=== PATIENT | female | born 1955 | race Caucasian/White ===

== ENCOUNTER 2024-06-21 19:59 | Emergency (ER) | payer OTHER, SELFPAY ==
--- NOTE | ~2024-06-21 | XR_ITS ---
EXAMINATION: XR FOREARM, LEFT CLINICAL INFORMATION: L arm pain COMPARISON: None available. TECHNIQUE: AP and lateral views of the left forearm were obtained. FINDINGS: Detail is obscured by the casting material. There is a spiral fracture involving the distal ulna low with some mild ventral angulation of the distal fracture fragment . No other definite fractures are seen. XR/XR forearm LT 2V IMPRESSION: Distal ulnar fracture as described above. Electronically signed by: Lucien Ledesma MD 06/22/2024 12:07 AM [facility]
[2024-06-21 20:12] VITALS: BP 129/65; BP 142/86; PULSE 74; PULSE 97; RESP 16; TEMP 36.3; O2SAT 95; O2SAT 98; BMI 33.6
--- NOTE | 2024-06-21 20:14 | ED_ITS ---
HPI - General Adult General Chief complaint: Extremity Injury, Upper Stated complaint: L ARM PAIN ALREADY IN CAST -EMS Time Seen by Provider: 06/21/24 22:46 Source: patient Limitations: no limitations and other (poor historian ) History of Present Illness ED Provider: Katey falk PA-C HPI narrative: 69-year-old female with a self-reported history of hypertension, hyperlipidemia, insulin-dependent diabetes, COPD on 3 L nasal cannula at baseline, chronic back pain on chronic opiate therapy, presents with left upper extremity pain times 10 days. Patient fell and fractured her left forearm. Her initial assessment was at [facility]. Patient has pending follow up with the orthopedic service as an outpatient. Patient states the pain medication she is taking is ineffective; patient states she takes ?6 pills of 10 mg oxycodone daily?. Patient also states she is having difficulty performing her activities of daily living, secondary to the splint and her discomfort. Related Data Allergies Allergy/AdvReac Type Severity Reaction Status Date / Time divalproex sodium [Depakote] Allergy Unknown rash/hives Verified 06/21/24 20:19 morphine Allergy Unknown rash Verified 06/21/24 20:19 vancomycin Allergy Unknown resp sx Verified 06/21/24 20:19 Review of Systems 2 Review of Systems: Yes all other systems are reviewed and are negative Constitutional: Constitutional: Denies fatigue and Denies fever(s) Cardiovascular: Cardiovascular: Denies chest pain and Denies dyspnea Respiratory: Respiratory: Denies dyspnea Musculoskeletal: Comments: Forearm pain Endocrine: Endocrine: Denies fatigue PMFSH Past Medical History Attestation statement: The following information was validated with the patient. Social History Social History Smoked in Last 30 Days: No Use of substances other than those prescribed or required for medical reasons: No Advance Directives: No Advance Directives Information Provided: No Do you have a plan to hurt others: No Plan Physical Exam ED Vital Signs: Vital Signs - 24 hr 06/21/24 20:12 06/22/24 01:46 06/22/24 06:16 Temperature 97.3 F 97.4 F 97.1 F Pulse Rate 74 57 55 Respiratory Rate 16 16 16 Blood Pressure 142/86 H 168/63 H 130/50 L Pulse Oximetry 95 99 99 Oxygen Delivery Method Nasal Cannula Room Air Nasal Cannula Oxygen Flow Rate 3 BMI result Body Mass Index 33.6 Const Other: Alert Orientation/consciousness: patient oriented x3 Resp Other: Nonlabored respiration Cardio Other: Normal peripheral perfusion Skin Other: Warm dry no rash Neuro General: patient oriented x3, no focal motor deficits and CN's II-XI intact bilaterally Extrem Other: The left upper extremity is warm and well-perfused, no distal swelling of the digits, sensation intact Psych Other: Cooperative, is a terrible historian Course Course Course Narrative: This is an RME done by MARY Allen: Additional HPI, ROS, PE not included below will be deferred to primary provider. 69-year-old female diagnosed last week with left forearm fracture presents with worsening pain inability to care for herself she reports she is coming from [facility] in [place] and is not able to care for herself due to pain. Pain is severe 9.5/10 and worsening is not able to sleep due to pain Reevaluation(s) Reevaluation #1: Vital signs stable. No acute overnight events per nursing notes. Patient has a fracture of her left forearm and is unable to care for herself at home and this PT/case management consultation was placed. Med reconciliation has not yet been completed. Work pharmacy to review medications. Physician observation continued pending PT/case management and disposition. Time: 06:58 Medical Decision Making Medical Decision Making MDM Narrative: 69-year-old female with a self-reported history of hypertension, hyperlipidemia, insulin-dependent diabetes, COPD on 3 L nasal cannula at baseline, chronic back pain on chronic opiate therapy, presents with left upper extremity pain times 10 days. Patient fell and fractured her left forearm. Her initial assessment was at [facility]. Patient has pending follow up with the orthopedic service as an outpatient. Patient states the pain medication she is taking is ineffective; patient states she takes ?6 pills of 10 mg oxycodone daily?. Patient also states she is having difficulty performing her activities of daily living, secondary to the splint and her discomfort. Problem: Age, diabetes, oxygen-dependent, recent injury History: Per patient which is limited as she is a poor historian I have considered the following differential diagnoses: DVT, compartment syndrome, medication seeking behavior, inability to perform activities of daily living Plan: Patient is requesting a higher level of care. She states she does not qualify to have services to her independent living facility; she states she lives with the [facility] at [address] screening labs and a repeat x-ray were obtained from triage. Thought about compartment syndrome, however the patient's pain is not out of proportion with exam, the extremity is warm and well perfused, she has sensation intact. Thought about DVT, however there was no swelling. We will hold her over for case management and physical therapy. I have independently reviewed the following tests: Labs: No leukocytosis, not anemic, no electrolyte abnormality, X-ray left forearm: XR/XR forearm LT 2V IMPRESSION: Distal ulnar fracture as described above. Lab Data 06/21/24 20:47 06/21/24 20:47 Labs: Lab Results 06/21/24 Range/Units 20:47 WBC 9.6 (4.8-10.8) X10*3/uL RBC 4.52 (4.20-5.50) X10*6/uL Hgb 13.4 (12.0-16.0) g/dl Hct 39.7 (37.0-47.0) % MCV 87.8 (80.0-98.0) fL MCH 29.6 (27.0-33.0) pg MCHC 33.8 (31.0-35.0) g/dl RDW 12.4 (11.0-16.0) % Plt Count 156 L (160-400) X10*3/uL MPV 10.6 (9.4-12.3) fL Immature Gran % (Auto) 0.5 H (0.0-0.4) % Neut % (Auto) 74.0 H (45-73) % Lymph % (Auto) 18.8 L (20-40) % Jerome % (Auto) 4.7 (2-11) % Eos % (Auto) 1.7 (0-4) % Baso % (Auto) 0.3 (0-2) % Lymph # (Auto) 1.8 (1.2-4.9) X10*3/uL Jerome # (Auto) 0.5 (0.1-1.2) X10*3/uL Eos # (Auto) 0.2 (0.0-0.4) X10*3/uL Baso # (Auto) 0.0 (0.0-0.2) X10*3/uL Abs Immat Gran (auto) 0.05 H (0.00-0.03) X10*3/uL Absolute Neuts (auto) 7.1 (2.0-8.3) x10*3/uL Absolute Nucleated RBC 0.000 (0.0-0.012) X10*3/uL Nucleated RBC % (auto) 0.0 (0.0-0.2) /100WBC PT 11.2 (10.9-12.4) SEC INR 1.0 (0.9-1.1) Sodium 138 (135-145) mmol/L Potassium 3.7 (3.3-5.1) mmol/L Chloride 102 (96-108) mmol/L Carbon Dioxide 31 H (22-29) mmol/L Anion Gap 9 L (12-20) BUN 8 L (9-16) mg/dL Creatinine 0.97 (0.5-1.4) mg/dL Estim Creat Clear Calc 49.1 Estimated GFR 57 Random Glucose 311 H (60-115) mg/dL Calcium 8.6 (8.4-10.2) mg/dL Magnesium 1.7 (1.6-2.6) mg/dL Total Bilirubin 0.3 (0.0-1.0) mg/dL AST 26 (5-31) U/L ALT 14 (0-31) U/L Alkaline Phosphatase 126 H (39-117) U/L Total Protein 6.6 (6.5-8.0) g/dL Albumin 3.5 (3.5-5.0) g/dL Discharge Plan Discharge Clinical Impression: Left ulnar fracture Patient Disposition: Still a Patient Print Language: Ukrainian
[2024-06-21 20:53] LABS: MANUAL DIFF FLAG NO
[2024-06-21 20:55] LABS: Basophils Percent Auto 0.3 % (0-2); Eosinophils Absolute Auto 0.2 X10*3/uL (0.0-0.4); Eosinophils Percent Auto 1.7 % (0-4); Hematocrit 39.7 % (37.0-47.0); Hemoglobin 13.4 g/dl (12.0-16.0); Imm Gran Abs Auto 0.05 X10*3/uL (0.00-0.03); Imm Gran Pct Auto 0.5 % (0.0-0.4); Lymphocytes Absolute Auto 1.8 X10*3/uL (1.2-4.9); Lymphocytes Percent Auto 18.8 % (20-40); Mean Corpuscular HGB Conc 33.8 g/dl (31.0-35.0); Mean Corpuscular Hemoglobin 29.6 pg (27.0-33.0); Mean Corpuscular Volume 87.8 fL (80.0-98.0); Mean Platelet Volume 10.6 fL (9.4-12.3); Monocytes Absolute Auto 0.5 X10*3/uL (0.1-1.2); Monocytes Percent Auto 4.7 % (2-11); Neutrophils Absolute Auto 7.1 x10*3/uL (2.0-8.3); Platelet Count 156 X10*3/uL (160-400); Red Blood Count 4.52 X10*6/uL (4.20-5.50); Red Cell Distribution Width 12.4 % (11.0-16.0); White Blood Count 9.6 X10*3/uL (4.8-10.8)
[2024-06-21 21:03] LABS: Prothrombin Time 11.2 SEC (10.9-12.4)
[2024-06-21 21:25] LABS: Alanine Aminotransferase 14 U/L (0-31); Albumin Level 3.5 g/dL (3.5-5.0); Alkaline Phosphatase 126 U/L (39-117); Anion Gap 9 (12-20); Aspartate Amino Transferase 26 U/L (5-31); Bilirubin Total 0.3 mg/dL (0.0-1.0); Blood Urea Nitrogen 8 mg/dL (9-16); Calcium 8.6 mg/dL (8.4-10.2); Carbon Dioxide 31 mmol/L (22-29); Chloride 102 mmol/L (96-108); Creatinine Clr Calc Pharmacy 49.1; Estimated Glomerular Filt Rate 57; Glucose Random 311 mg/dL (60-115); Magnesium 1.7 mg/dL (1.6-2.6); Potassium 3.7 mmol/L (3.3-5.1); Sodium 138 mmol/L (135-145); Total Protein 6.6 g/dL (6.5-8.0)
--- OUTSIDE RECORDS SUMMARY | 2024-06-21 22:12 | XMS_ITS | Clinical Summary ---
Author Organization [facility] Address [address] [place] [address] Phone Care Team Providers Care District Fire Chief Name Role Phone NO PCP, , Primary Care Provider Unavailabl e [facility] Unavailable Unavailable Reason for Visit and Chief Complaint Medicare New Patient Plan of Treatment Future Appointments Date Time Location Provi mary Medicare New Patient 06/22/2024 10:00AM [facility] Ernestine Kennedy MD Last Documented On 11:27AM ; [facility] Assessments Includes: Assessments from this encounter No Assessments Recorded Medical Equipment - Implanted Devices Includes: Current Devices No Medical Equipment Recorded Medications Administered Includes: Administered Medications from this encounter No Administered Medications Recorded Results Includes: Results discussed during this encounter No Results Recorded For Specified Dates History of Present Illness Includes: History of Present Illness from this encounter No History of Present Illness Recorded Social History No Social History Recorded - Smoking Status Unknown Medical History Includes: Medical History addressed during this encounter No Medical History Recorded Family History Includes: Family History addressed during this encounter No Family History Recorded Review of Systems Includes: Review of Systems from this encounter No Review of Systems Recorded Mental Status Includes: Mental Status from this encounter No Mental Status Recorded Functional Status Includes: Functional Status from this encounter No Functional Status Recorded Physical Exam Includes: Physical Exam from this encounter No Physical Exam Recorded Encounters Encounter Provider Location Date Check-In Time Check-Out Time Diagnosis Medicare New Patient Ernestine Kennedy MD [facility] 06/22/20 10:00AM 11:59PM Insurance Includes: Active Insurance Policies Plan Name Member ID Group # Subscriber Relationship Effect nic Dates 1 - [employer] [id number] Rosie Velazquez Self Clinical Notes Includes: Clinical Notes from this encounter No Clinical Notes Recorded
--- OUTSIDE RECORDS SUMMARY | 2024-06-21 22:12 | XMS_ITS ---
Care Plan - [facility], Created on: June 21, 2024 Rosie Velazquez : 1955 Sex: Female Author Organization [facility] Address [address] [place] [address] Phone Care Team Providers Care Nail Technician Teacher Name Role Phone NO PCP, , Primary Care Provider Unavailabl e [facility], Unavailable Unavailable
--- OUTSIDE RECORDS SUMMARY | 2024-06-21 22:12 | XMS_ITS ---
Author Organization [facility] Address [address] [place] [address] Phone Care Team Providers Care Sample Builder Name Role Phone NO PCP, , Primary Care Provider Unavailabl e [facility], Unavailable Unavailable Plan of Treatment Future Appointments Date Time Location Provi mary Medicare New Patient 06/22/2024 10:00AM [facility] Ernestine Kennedy MD Last Documented On 4 11:27AM ; [facility], Assessments Includes: Assessments for all patient encounters No Assessments Recorded Medical Equipment - Implanted Devices Includes: Current and historical Devices No Medical Equipment Recorded Medications Administered Includes: Administered Medications in patient's chart No Administered Medications Recorded Results Includes: Results from 06/21/2023 through 06/21/2024 No Results Recorded For Specified Dates History of Present Illness History of Present Illness not supported for this document type No History of Present Illness Recorded Social History No Social History Recorded - Smoking Status Unknown Medical History Includes: Medical History in patient's chart No Medical History Recorded Family History Includes: Family History in patient's chart No Family History Recorded Review of Systems Review of Systems not supported for this document type No Review of Systems Recorded Mental Status No Mental Status Recorded Functional Status No Functional Status Recorded Physical Exam Physical Exam not supported for this document type No Physical Exam Recorded Insurance Includes: Active Insurance Policies Plan Name Member ID Group # Subscriber Relationship Effect nic Dates 1 - [employer] [id number] Rosie Velazquez Self Clinical Notes Includes: Signed Clinical Notes starting from 06/16/2022 No Clinical Notes Recorded
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
--- OUTSIDE RECORDS SUMMARY | 2024-06-21 22:13 | XMS_ITS | Clinical Summary ---
Author Organization [facility] Address [address] [place] [address] Phone Care Team Providers Care Direct Marketing Executive Name Role Phone NO PCP, , Primary Care Provider Unavailabl e [facility] Unavailable Unavailable Reason for Visit and Chief Complaint Medicare New Patient Plan of Treatment Future Appointments Date Time Location Provi mary Medicare New Patient 06/22/2024 10:00AM [facility] Ernestine Kennedy MD Last Documented On 11:27AM ; [facility], Assessments Includes: Assessments from this encounter No [...] from this encounter No Physical Exam Recorded Insurance Includes: Active Insurance Policies Plan Name Member ID Group # Subscriber Relationship Effect nic Dates 1 - [employer] [id number] Rosie Velazquez Self Clinical Notes Includes: Clinical Notes from this encounter No Clinical Notes Recorded
--- NOTE | 2024-06-22 00:40 | PC.NURSE ---
assumed care of patient at this time, placed in hospital bed in position of comfort bed locked in lowest position bed alarm on
[2024-06-22 01:46] VITALS: BP 168/63; PULSE 57; RESP 16; TEMP 36.3; O2SAT 99
[2024-06-22 06:16] VITALS: BP 130/50; PULSE 55; RESP 16; TEMP 36.2; O2SAT 99
[2024-06-22 07:52] VITALS: BP 151/110; PULSE 56; RESP 18; TEMP 36.8; O2SAT 98
[2024-06-22 08:12] LABS: Glucose, Whole Blood 230 mg/dL (60-115)
--- NOTE | 2024-06-22 09:17 | MHC.CM.ED ---
Received case management consult overnight. Patient came to the ER due to left ulna fracture with uncontrolled pain management. Work up essentially negative. Physical therapy eval completed. So skill indicated. Patient is active with [facility]. Received telephone call from Vianca at [facility]. Patient has an outpatient ortho appointment scheduled for 945am. Their van is already enroute to the ER to transport patient to appointment. Patient, Arleen CABAN and Linh HERNANDEZ made aware. Continue to monitor for d/c needs.
[2024-06-22 09:18] LABS: COVID-19 Test Negative (Negative); IDNOW Serial# 6674DD1D
[2024-06-22 10:14] VITALS: BP 151/110; PULSE 56; RESP 18; TEMP 36.8; O2SAT 98
--- NOTE | 2024-06-22 10:16 | PHA.MEDREC ---
Pharmacy Consult ? Medication Reconciliation Pharmacy has tried to complete the medication reconciliation. Went to speak with patient to confirm med list from [facility] , however patient left for out patient physical therapy appointment. unclear if patient is coming back. will update med rec when we/if patient comes back.
== END 2024-06-22 09:45 | disposition home or self-care (01) ==
PROVIDERS: Physician Assistant; Physician Assistant Medical; Emergency Provider Emergency Medicine; PCP Nurse Practitioner Family
DX: S52.202A Unspecified fracture of shaft of left ulna, initial encounter for closed fracture (principal); W19.XXXA Unspecified fall, initial encounter; J44.9 Chronic obstructive pulmonary disease, unspecified; M79.602 Pain in left arm; R26.81 Unsteadiness on feet; E11.9 Type 2 diabetes mellitus without complications; Y93.89 Activity, other specified; Y92.89 Other specified places as the place of occurrence of the external cause; Y99.8 Other external cause status; Z79.4 Long term (current) use of insulin; Z79.899 Other long term (current) drug therapy; Z99.81 Dependence on supplemental oxygen; Z11.52 Encounter for screening for COVID-19
CPT/HCPCS: 36415; 73090; 80053; 82947; 83735; 85025; 85610; 87635; 97161; 99284

== ENCOUNTER 2024-08-03 14:30 | Emergency (ER) | payer OTHER, SELFPAY ==
[2024-08-03 14:44] VITALS: BP 140/90; PULSE 65; O2SAT 95
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
[2024-08-03 15:19] VITALS: BP 144/68; PULSE 67; RESP 20; TEMP 37; O2SAT 98; BMI 28.5
--- NOTE | 2024-08-03 15:29 | PC.NURSE ---
pt is alert and oriented, skin pwd, respirations even and unlabored, pt reports having multiple life stresses, family/friends passing away, issues at her assisted living place and feeling depressed but the pt currently denies si/hi. pt is reporting chronic back pain and lower extremities pain at 8/10, pt is also oxygen dependent at 4l. sitter in place and pt was [facility] by [facility] pct
[2024-08-03 15:45] LABS: MANUAL DIFF FLAG NO
[2024-08-03 15:47] LABS: Basophils Percent Auto 0.5 % (0-2); Eosinophils Absolute Auto 0.2 X10*3/uL (0.0-0.4); Eosinophils Percent Auto 1.7 % (0-4); Hematocrit 33.2 % (37.0-47.0); Hemoglobin 10.8 g/dl (12.0-16.0); Imm Gran Abs Auto 0.08 X10*3/uL (0.00-0.03); Imm Gran Pct Auto 0.9 % (0.0-0.4); Lymphocytes Absolute Auto 2.3 X10*3/uL (1.2-4.9); Lymphocytes Percent Auto 26.6 % (20-40); Mean Corpuscular HGB Conc 32.5 g/dl (31.0-35.0); Mean Corpuscular Hemoglobin 30.2 pg (27.0-33.0); Mean Corpuscular Volume 92.7 fL (80.0-98.0); Mean Platelet Volume 10.5 fL (9.4-12.3); Monocytes Absolute Auto 0.6 X10*3/uL (0.1-1.2); Monocytes Percent Auto 7.1 % (2-11); Neutrophils Absolute Auto 5.5 x10*3/uL (2.0-8.3); Neutrophils Percent Auto 63.2 % (45-73); Platelet Count 137 X10*3/uL (160-400); Red Blood Count 3.58 X10*6/uL (4.20-5.50); Red Cell Distribution Width 12.9 % (11.0-16.0); White Blood Count 8.6 X10*3/uL (4.8-10.8)
[2024-08-03 16:03] LABS: Alanine Aminotransferase 19 U/L (0-31); Albumin Level 3.3 g/dL (3.5-5.0); Alkaline Phosphatase 133 U/L (39-117); Anion Gap 12 (12-20); Aspartate Amino Transferase 33 U/L (5-31); Bilirubin Direct < 0.2 mg/dL (0.0-0.5); Bilirubin Total 0.2 mg/dL (0.0-1.0); Blood Urea Nitrogen 13 mg/dL (9-16); Calcium 8.2 mg/dL (8.4-10.2); Carbon Dioxide 34 mmol/L (22-29); Chloride 99 mmol/L (96-108); Creatinine Clr Calc Pharmacy 43.8; Estimated Glomerular Filt Rate 46; Glucose Random 267 mg/dL (60-115); Potassium 4.3 mmol/L (3.3-5.1); Sodium 141 mmol/L (135-145); Total Protein 6.3 g/dL (6.5-8.0)
[2024-08-03 16:23] LABS: Influenza A PCR NEGATIVE (Negative); Influenza B PCR NEGATIVE (Negative); Resp Syncy Virus RNA Qual PCR NEGATIVE (Negative); SARS COV2 PCR INHOUSE NEGATIVE (Negative)
--- OUTSIDE RECORDS SUMMARY | 2024-08-03 16:29 | XMS_ITS ---
Author Organization [facility] Address [address], [place] Phone Care Team Providers Care Drycleaner Name Role Phone Jennifer Wu HALL DIRECTOR Primary Care Provider [phone] Program of [facility] for the Elderly Status:Initial Criteria Met (Enrolling) Start date:05/07/2014 Related social determinants of health:Housing Instability, Financial Risk, Transportation, Social Isolation, Food Risk Overview This episode will track PACE documentation. Continued Care and Services Coordination
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
--- OUTSIDE RECORDS SUMMARY | 2024-08-03 16:29 | XMS_ITS | Clinical Summary ---
Author Organization [facility] Address [address] [place] [address] Care Team Providers Care Catalyst Recovery Operator Name Role Phone Chayito Plummer MURRAY Primary Care Provider [phone] Source Comments PLEASE NOTE, if this patient is a minor, it may be UNLAWFUL to discuss sensitive information that is contained in these records (such as FAMILY PLANNING, MENTAL HEALTH or SUBSTANCE ABUSE) with the minor patient's parent or other person without the patient's specific authorization.[facility] Allergies Active Allergy Reactions Criticality Noted Date Comments Morphine 09/06/2013 Vancomycin 09/06/2013 Medications insulin glargine (LANTUS) 100 unit/mL cartridgeIndi cations:type 2 diabetes mellitus Inject 76 Units into the skin once daily. Administer at the same time each day. Indications: Type 2 Diabetes Mellitus Active insulin aspart (NOVOLOG) 100 unit/mL injection Inject into the skin 3 (three) times daily before meals. Active clopidogrel (PLAVIX) 75 mg tabletIndicat ions:pulmonar y embolism Take 75 mg by mouth once daily. Indications: pulmonary embolism Active pravastatin (PRAVACHOL) 80 mg tabletIndicat ions:hypercho lesterolemia Take 80 mg by mouth once daily. Indications: Hypercholesterolemia Acti ve acetaminophen (TYLENOL) 500 mg tabletIndicat ions:back pain Take 1,000 mg by mouth every 6 (six) hours as needed. Indications: Back Pain Active atenolol (TENORMIN) 25 mg tabletIndicat ions:hyperten lydia Take 25 mg by mouth once daily. Indications: Hypertension Active gabapentin (NEURONTIN) 300 mg capsuleIndica tions:neuropa thic pain Take 300 mg by mouth 3 (three) times daily. Indications: Neuropathic Pain Active lisinopril (PRINIVIL,ZES TRIL) 40 mg tabletIndicat ions:hyperten lydia Take 40 mg by mouth once daily. Indications: Hypertension Active nitroGLYCERIN (NITROSTAT) 0.[address] 0.4 mg under the tongue every 5 (five) minutes as needed. Up to 3 doses, if no relief call 911. Active FLUoxetine 60 mg tab Take by mouth. Activ e traZODone (DESYREL) 50 mg tablet Take 50 mg by mouth nightly at bedtime. Activ e clonazePAM (KLONOPIN) 1 mg tablet Take 1 mg by mouth 2 (two) times daily as needed. Active rOPINIRole (REQUIP) 4 mg tablet Take 4 mg by mouth nightly at bedtime. Activ e levothyroxine (SYNTHROID, LEVOTHROID) 112 mcg tabletIndicat ions:Hypothyr oidism Take 1 Tab by mouth once daily. 30 Tab 2 09/14/19 14 Active metFORMIN (GLUCOPHAGE) 1,000 mg tabletIndicat ions:DM (diabetes mellitus) ([facility]) Take 1 Tab by mouth 2 (two) times daily with a meal. 60 Tab 3 09/28/19 14 Active Active Problems Problem Noted Date Diagnosed Date HTN (hypertension) 09/06/2013 HLD (hyperlipidemia) 09/06/2013 DM type 2 (diabetes mellitus, type 2) ([facility]) 09/06/2013 Hypothyroidism 09/06/2013 Pulmonary embolism x 2, filter in place 09/07/19 14 Back pain, chronic, surgery x3 09/06/2013 DM neuropathies ([facility]) 09/06/2013 Family History Medical History Relation Name Comments Diabetes Brother 2 Diabetes Brother 3 Heart Problems Father Diabetes Mother Heart Problems Mother COPD Sister 1 Korin Emphyzema Other (See Comments) Sister 2 Pat Back, d egenrative Cancer Sister 6 pancreatic CA Relation Name Status Comments Brother 1 (Age 36) Killed by Drunk Chiropractor Assistant Brother 2 Brother 3 Father (Age 72) [place] Mother (Age 53) heart chen ck Sister 1 Korin Alive Sister 2 Pat Alive Sister 3 Suzanne Alive Sister 4 (Age 5) Sister 5 (Age 6) Sister 6 Social History Tobacco Use Types Packs/Day Years Used Date Smoking Tobacco: Former Cigarettes Q uit: 08/09/2013 Smokeless Tobacco: Never Alcohol Use Standard Drinks/Week Comments No 0 (1 standard drink = 0.6 oz pur e alcohol) Comments Unknown Sex and Gender Information Value Date Recorded Sex Assigned at Not on file Legal Sex Female 1:29 PM PST Gender Identity Not on file Sexual Orientation Not on file Last Filed Vital Signs Vital Sign Reading Time Taken Comments Blood Pressure 176/64 09/13/2013 2:50 PM EDT Pulse 69 09/13/2013 2:50 PM EDT Temperature 36.9 ??C (98.5 ??F) 09/13/2013 2:50 PM ED T Respiratory Rate 16 09/13/2013 2:50 PM EDT Oxygen Saturation - - Inhaled Oxygen Concentration - - Weight 95 kg (209 lb 6.4 oz) 09/13/2013 2:50 PM EDT Height - - Body Mass Index - - Plan of Treatment Not on file Insurance [place] MED[place]ICARE - [place] Care Teams Catalyst Recovery Operator Relationship Specialty Start Date End Date Chayito Plummer NP [id number] [place] [address] PCP - General Internal Medicine 12/30/13
--- OUTSIDE RECORDS SUMMARY | 2024-08-03 16:29 | XMS_ITS ---
Author Organization [facility] Address [address] [place] [address] Phone Care Team Providers Care Social Group Worker Name Role Phone NO PCP, , Primary Care Provider Unavailabl e [facility] Unavailable Unavailable Plan of Treatment Future Appointments Date Time Location Provi mary Procedure 08/23/2024 9:00AM [facility] Ernestine Kennedy MD Last Documented On 10:26AM ; [facility] Assessments Includes: Assessments for all patient encounters No Assessments Recorded Medical Equipment - Implanted Devices Includes: Current and historical Devices No Medical Equipment Recorded Medications Administered Includes: Administered Medications in patient's chart No Administered Medications Recorded Vital Signs Includes: Vital Signs from 08/03/2023 through 08/03/2024 Vital Name 06/22/2024 10:25A Blood Pressure Sitting (mmHg) 164/78 Pulse Rate-Sitting (bpm) 65 Temp-Temporal 96.8 Height (in) 64 Weight (lb) 172 Body Mass Index 29.5 Body Surface Area 1.8 Oxygen Saturation (%) 97 Last Documented: On 06/22/2024 10:25A M ; [facility] Results Includes: Results from 08/03/2023 through 08/03/2024 No Results Recorded For Specified Dates History of Present Illness History of Present Illness not supported for this document type No History of Present Illness Recorded Social History No Social History Recorded - Smoking Status Unknown Procedures and Surgical History Includes: Procedures from 08/03/2023 through 08/03/2024 Procedures Code Diagnosis Performing Provider Service Location Service Date X-Ray Exam Of Forearm, 2 views (Left) 46662 Unsp fx shaft of left ulna, subs for clos fx w routn heal Uday Callejas MD [facility] 07/12/2024 Last Documented On 5 9:27AM ; [facility] Treat Fracture Of Ulna (Left) 12789 Bent bone of left ulna, init encntr for closed fracture Ernestine Kennedy MD [facility] 06/22/2024 Last Documented On 4 2:17PM ; [facility] X-Ray Exam Of Forearm, 2 views (Left) 61681 Bent bone of left ulna, init encntr for closed fracture Ernestine Kennedy MD [facility] 06/22/2024 Last Documented On 4 2:17PM ; [facility] Medical History Includes: Medical History in patient's [...] this document type No Physical Exam Recorded Encounters Includes: Encounters from 08/03/2023 through 08/03/2024 Encounter Provider Location Date Check-In Time Check-Out Time Diagnosis Procedure Uday Callejas MD [facility] 07/12/19 25 10:20AM 10:26AM Medicare New Patient Ernestine Kennedy MD [facility] 06/22/20 24 10:00AM 11:07AM Insurance Includes: Active Insurance Policies Plan Name Member ID Group # Subscriber Relationship Effect nic Dates 1 - [facility] [id number] Rosie Velazquez Self Clinical Notes Includes: Signed Clinical Notes starting from 06/16/2022 * Progress note Date Encounter Last Documented by 07/12/2024 Procedure Last documented on 07/12/2024; 12:20 PM, [facility] Chief Complaint Closed left distal ulnar [...] x-rays and possible formal therapy if needed * Progress note Date Encounter Last Documented by 06/22/2024 Medicare New Patient Last docume nted on 06/22/2024; 11:23 AM, Ernestine Kennedy MD; [facility], Top of Document Diagnosis: Left distal ulna fracture Date of injury: 06/13/2024. The patient presents for evaluation of the above. This is the first time I am meeting her. She has a past medical history significant for COPD, secondary to smoking, she is on 2 to 3 L of oxygen. She also has type 2 diabetes 3 back surgeries in the past hypertension and high cholesterol. She sustained the above-stated injury after she fell off of her scooter. She was then seen in a local emergency room and presents here for further evaluation. Her splint was removed. On evaluation the skin is intact. She has decreased sensation throughout her whole hand. She reports this is since the time of injury. She can retropulse abduct and pinch. Palpable radial pulse. The forearm is soft and compressible no sign of compartment syndrome. The patient reports that she can feel her ulna shifting. I obtained x-rays today which do show displacement of the ulna fracture compared to at the time of the injury. I placed her in a short arm cast today. She felt much better with the cast in place. She was also able to move her fingers a lot better with the cast in place and reported improving sensation. As such she should remain in the cast for the next 4 to 6 weeks. Follow-up in 4 to 6 weeks for repeat evaluation. At that time she should have the cast removed followed by AP and lateral x-rays of the forearm with the cast off. Assuming there is callus at that time on this fracture we can likely transition her at that point to removable forearm splint. If there is not adequate callus she may need to be recasted. This injury can be managed nonoperatively. Physical Findings - Vitals taken 06/22/2024 10:25 am BP-Sitting 164/78 mmHg Pulse Rate-Sitting 65 bpm Temp-Temporal 96.8 F Height 64 in Weight 172 lbs Body Mass Index 29.5 kg/m2 Body Surface Area 1.8 m2 Oxygen Saturation 97 %
--- OUTSIDE RECORDS SUMMARY | 2024-08-03 16:29 | XMS_ITS | Clinical Summary ---
Author Organization [facility] Address [address] [place] [address] Phone Care Team Providers Care Underground Conduit Installer Name Role Phone NO PCP, , Primary Care Provider Unavailabl e [facility] Unavailable Unavailable Reason for Visit and Chief Complaint Medicare New Patient Plan of Treatment Future Appointments Date Time Location Provi mary Procedure 08/23/2024 9:00AM [facility] Ernestine Kennedy MD Last Documented On 5 10:26AM ; [facility] Assessments Includes: Assessments from this encounter No Assessments Recorded Medical Equipment - Implanted Devices Includes: Current Devices No Medical Equipment Recorded Medications Administered Includes: Administered Medications from this encounter No Administered Medications Recorded Vital Signs Includes: Vital Signs from this encounter Vital Name 06/22/2024 10:25A Blood Pressure Sitting (mmHg) 164/78 Pulse Rate-Sitting (bpm) 65 Temp-Temporal 96.8 Height (in) 64 Weight (lb) 172 Body Mass Index 29.5 Body Surface Area 1.8 Oxygen Saturation (%) 97 Last Documented: On 06/22/2024 10:25A M ; [facility] Results Includes: Results discussed during this encounter No Results Recorded For Specified Dates History of Present Illness Includes: History of Present Illness from this encounter No History of Present Illness Recorded Social History No Social History Recorded - Smoking Status Unknown Procedures and Surgical History Includes: Procedures from this encounter Procedures Code Diagnosis Performing Provider Service Location Service Date Treat Fracture Of Ulna (Left) 54116 Bent bone of left ulna, init encntr for closed fracture Ernestine Kennedy MD [facility] 06/22/2024 Last Documented On 4 2:17PM ; [facility] X-Ray Exam Of Forearm, 2 views (Left) 58442 Bent bone of left ulna, init encntr for closed fracture Ernestine Kennedy MD [facility], 06/22/2024 Last Documented On 4 2:17PM ; [facility], Medical History Includes: Medical History addressed during [...] Diagnosis Medicare New Patient [facility] 06/22/20 24 10:00AM 11:07AM Insurance Includes: Active Insurance Policies Plan Name Member ID Group # Subscriber Relationship Effect nic Dates 1 - [employer] [id number] Rosie Velazquez Self Clinical Notes Includes: Clinical Notes from this encounter * Progress note Date Encounter Last Documented by 06/22/2024 Medicare New Patient Last docume nted on 06/22/2024; 11:23 AM, [facility] [place] Top of Document Diagnosis: Left distal ulna [...]
--- OUTSIDE RECORDS SUMMARY | 2024-08-03 16:29 | XMS_ITS | Encounter Summary ---
Author Organization [facility] Address [address] [place] [address] Care Team Providers Care Community Education Coordinator Name Role Phone Jennifer Wu [employer]PERATOR Primary Care Provider [phone] Encounter Details Date Type Department Care Team (Latest Contact Info) Description 07/12/2024 8:00 AM EST - 07/12/2024 11:[address] [facility] Hospital Encounter [facility] Xray [address] [place] [address] Pain Discharge Disposition: Home or Self Care Social History Tobacco Use Types Packs/Day Years Used Date Smoking Tobacco: Every Day Smokeless Tobacco: Current Alcohol Use Standard Drinks/Week Comments Yes 0 (1 standard drink = 0.6 oz pur e alcohol) Sex and Gender Information Value Date Recorded Sex Assigned at Not on file Gender Identity Not on file Sexual Orientation Not on file Job Start Date Occupation Industry Not on file Not on file Not on file documented as of this encounter Functional Status Functional Status Response Date of Assess ment Are you deaf or do you have serious difficulty h earing? No 06/14/2024 Are you blind or do you have serious difficulty seeing, even when wearing glasses? No 06/14/2024 Do you have serious difficul ty walking or climbing stairs? No 06/14/2024 Do you have serious difficulty dressing or bathi ng? No 06/14/2024 Because of a physical, menta l, or emotional condition, do you have serious difficulty doing errands alone such as visiting the doctor? No 06/14/2024 Cognitive Status Response Date of Assessm ent Because of a physical, menta l, or emotional condition, do you have serious difficulty concentrating, remembering, or making decisions? (5 years old or older) No 06/14/2024 documented as of this encounter Medications at Time of Discharge Medication Sig Dispensed Refills Start Date End Date albuterol 2.5 mg /3 mL (0.083 %) nebulizer solution Take 3 mL (2.5 mg total) by nebulization every 6 (six) hours. aspirin 81 mg EC tablet Take 1 Tablet by mouth daily. benzonatate (TESSALON) 200 mg capsule Take 1 capsule (200 mg total) by mouth 3 (three) times a day if needed for cough. Do not crush or chew. cholecalciferol (VITAMIN D-3) 25 mcg (1,000 unit) tablet Take 5 tablets (5,000 Units total) by mouth 1 (one) time per week. dulaglutide (Trulicity) 1.5 mg/0.5 mL pen injector injection Inject?into the skin once a week. FLUoxetine (PROzac) 40 mg capsule Take 1 capsule (40 mg total) by mouth 1 (one) time each day. fluticasone-umeclidinium -vilanterol (Trelegy Ellipta) 200-62.5-25 mcg inhaler Inhale 1 puff (200 mcg total) by mouth 1 (one) time each day. Rinse mouth with water after use to reduce aftertaste and incidence of candidiasis. Do not swallow. furosemide (LASIX) 20 mg tablet Take 1 tablet (20 mg total) by mouth 1 (one) time each day. gabapentin (NEURONTIN) 600 mg tablet Take 1 tablet (600 mg total) by mouth 3 (three) times a day. glucose blood test strip 1 Strip by In Vitro route 3 times daily (before meals). As directed. 02/12/2011 insulin degludec (Tresiba FlexTouch U-200) 200 unit/mL (3 mL) CONCENTRATED injection pen Inject 45 Units under the skin 1 (one) time each day. ipratropium-albuteroL (COMBIVENT RESPIMAT) 20-100 mcg/actuation inhaler Inhale 2 Puffs into the lungs 4 times daily as needed (sob/wheeze). 05/16/2011 isosorbide mononitrate (IMDUR) 30 mg 24 hr tablet Take 1 tablet (30 mg total) by mouth 1 (one) time each day. Do not crush or chew. isosorbide mononitrate (IMDUR) 60 mg 24 hr tablet Take 1 tablet (60 mg total) by mouth 1 (one) time each day. Take 1 Tablet by mouth daily. 90mg total per med list 06/05/2023 levothyroxine (SYNTHROID, LEVOTHROID) 112 mcg tablet Take 125 mcg by mouth 1 (one) time each day before breakfast. Take 112 mcg by mouth daily. LORazepam (ATIVAN) 0.5 mg tablet Take 1 tablet (0.5 mg total) by mouth 2 (two) times a day if needed for anxiety. Max Daily Amount: 1 mg metoprolol succinate (TOPROL-XL) 50 mg 24 hr tablet Take 1 Tablet by mouth daily. pantoprazole (PROTONIX) 40 mg EC tablet Take 1 tablet (40 mg total) by mouth 1 (one) time each day before breakfast. Do not crush, chew, or split. rosuvastatin (CRESTOR) 5 mg tablet Take 1 Tablet by mouth daily. 07/23/2023 tolterodine LA (DETROL LA) 4 mg 24 hr capsule Take 1 capsule (4 mg total) by mouth 1 (one) time each day. Do not crush, chew, or split. traZODone (DESYREL) 150 mg tablet Take 2 tablets (300 mg total) by mouth at bedtime. 1 Tab at bedtime. 10/13/2018 ziprasidone (GEODON) 20 mg capsuleIndications:major depressive disorder treatment adjunct Take 1 capsule (20 mg total) by mouth at bedtime. documented as of this encounter Discharge Disposition Disposition Code Departure Means Destination Home or Self Care documented in this encounter Plan of Treatment Upcoming Encounters Date Type Department Care Team (Late st Contact Info) Description 09/15/2024 1:50 PM EDT Appointment Radiology Department [address] [address] documented as of this encounter Procedures Procedure Name Priority Date/Time Associated Diagnosis Comments XR WRIST 3+ VIEWS LEFT Routine 07/12/2024 10:04 AM EST Pain documented in this encounter Results * XR Wrist 3+ Views Left (07/12/2024 10:04 AM EST) Narrative RIS PACS/VR - 07/12/2024 10:04 AM EST This order has been auto-finalized and does not contain a result. Uday Callejas MD IMG XR PROCEDURES RIS PACS/VR documented in this encounter Visit Diagnoses Diagnosis Pain Generalized pain Encounter for screening mammogram for breast cancer documented in this encounter Care Teams Community Education Coordinator Relationship Specialty Start Date End Date Jennifer Wu NP [address] [address] PCP - General Family Medicine 05/14/24 documented as of this encounter
--- OUTSIDE RECORDS SUMMARY | 2024-08-03 16:29 | XMS_ITS ---
Care Plan - [facility], Created on: August 03, 2024 Rosie Velazquez : 1955 Sex: Female Author Organization [facility] Address [address] [place] [address] Phone Care Team Providers Care Deployment Specialist Name Role Phone NO PCP, , Primary Care Provider Unavailabl e [facility], Unavailable Unavailable
--- OUTSIDE RECORDS SUMMARY | 2024-08-03 16:30 | XMS_ITS | Data Portability ---
Author Organization [facility] Pain Managem [facility] PAIN OFF[facility] Address [address] [address] [place] [address] Care Team Providers Care Service Center Assistant Name Role Phone ISA ALCARAZ Referring Provider [phone] Assessment Encounter Date Assessment Date Assessment LastModified by Organization Details LastModified Time 10/03/2011 10/03/2011 Rosie Velazquez is a 56 year old woman with multiple significant medical issues who has pain in her left hip and also has low back pain radiating into her left lower extremity. She has on exam an antalgic gait, pain on movement of her left hip .She also has tenderness in her left lower lumbar region with a positive left straight leg raising test. MRI of her left hip shows degenerative changes . MRI Lumbar spine shows Lumbar spinal stenosis most significant at L4-5.? ? ? She has two pain generators of equal intensity. She has trialed injections in the past with no significant pain benefit. She is currently on Plavix and has multiple reasons for which she is on anticoagulation such as blood clots in her legs with a PE and TIA's with carotid stenosis and anginal symptoms. I have placed a call to Dr. Suellen Benavides to discuss the feasability of stopping Plavix for 7 days for trial of lumbar epidural steroid injections. Patient is unsure if she wants to trial injections again as they are not effective for her in the past. If she does not want to proceed with interventional pain management, a surgical evaluation would be the next option for her. She is on Oxycodone 10mg bid for pain. A medical management ? ? ?consultation with recommendations for her PCP is also another option . I will discuss the same with Dr. Benavides. She was interested in trialing a TENS unit for her low back pain. An appointment with the [facility] client care representative has been made for the same. She will follow up for futher evaluation at that visit. [email or web address] Not available 10/04/2011 11:24:59 09/17/2017 09/17/2017 Rosie Velazquez is a 62 year old woman with complaints of low back pain radiating into both thighs , right is greater than left. She is S/P three back surgeries. She states she had injections in the past with no pain benefit. MRI Lumbar spine shows degenerative changes and postoperative changes are present. Known fracture of the right sided L5 pedicle screw . At L4-5 level left foraminal stenosis is present and at L5-S1 level , there is a small disc herniation with narrowing of left lateral recess stenosis and S1 nerve root impingement. She has a complex medical history. She is on plavix and has diabetes. We had a discussion on treatment options that are avaliable. Considering she had injections in the past that did not give significant pain benefit and that to do a lumbar epidural steroid injection, her blood glucose level has to be well controlled and she needs to be off plavix for 7 days, I recommend continuation of medical management with oxycodone and gabapentin. [email or web address] Not available 10/27/2017 14:32:46 Plan of Treatment Reminders Order Date Submit Date Provider Last Modified By Organization Details Last Modified Time Details Appointments None record ed. Lab None record ed. Referral None record ed. Procedures None record ed. Surgeries None record ed. Imaging None record ed. Medication Orders None record ed. Patient TargetsNo targets recorded. Patient Instructions Encounter Date Encounter Id Patient Instructions Last Modified By Organization Details Last Modified Time 10/03/2011 [id number] She was advised against bed rest lasting longer than four days and to continue activities as tolerated. Benefits of smoking cessation were discussed with her. [email or web address] Not available 10/04/2011 10:56:22 Reason for Referral None Reported. 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 22093617 Active 2017 Joao Jin MD [address] , [address], [place], [address] , [place] [facility] 8 14:16:18 Lumbosacral spondylosis without myelopathy 43050692 Active 2017 Joao Jin MD [address] [place] , [address], [place], [address] , [place] [facility] 8 14:16:21 Lumbosacral radiculitis 15821341 Active 2017 Joao Jin MD [address] [facility] , [address], [place], [address] , [place] [facility] 8 14:16:23 Pseudoclaudic ation syndrome Active Not Available [facility] 3 03:02:01 Hip pain 61289218 Active Not Available [facility] 3 03:02:01 Disorder of trunk 541428664 Active Not Available [facility] 3 03:02:01 Problem Notes None recorded. Procedures Surgical History Date Name Laterality Status Provider Name and Address Organization Details Recorded Time Joint Replacement completed Irene turner [place] [facility] 10/03/2011 11:19:13 Hysterectomy completed Irene Cowart [place] - [facility] 10/03/2011 11:19:13 Other completed Irene Cowart [place] - [facility] 09/17/2017 14:37:22 Other completed Irene Cowart [place] [facility] 10/03/2011 11:19:13 Other completed Irene Cowart [place] [facility] 10/03/2011 11:19:13 Other completed Irene Cowart [place] [facility] 10/03/2011 11:19:13 Other completed Irene Cowart [place] [facility] 10/03/2011 11:19:13 Imaging Results None recorded. Procedure Notes None recorded. Medical Equipment None Reported. Allergies Allergen ID Allergen Name Allergen Category Reaction Reaction Severity Criticality Documentation Date Start Date Code Code System Note Provider Name and Address Organization Details Recorded Time 2000 Vancocin medicatio n anaphylax is Not available Not available 10/03/2011 84717 8 RxNorm Irene manzo [place] [facility] 2 11:09:09 2001 morphine medicatio n hives Not available Not available 10/03/2011 7052 RxNorm Irene manzo, [place] - [facility] 2 11:09:09 Medications Name Sig Start Date Stop Date Status Note LastModified by Organization Details LastModified Time amoxicilli n 500 mg capsule 09/17 completed Not Available Not Available Not Available silver sulfadiazi ne 1 % topical cream active Not Available Not Available Not Available acetaminop hen 325 mg tablet active Not Available Not Available Not Available azithromyc in 250 mg tablet 09/17 completed Not Available Not Available Not Available Prozac 40 mg capsule Take 1 capsule every day by oral route. active Not Available Not Available No t Available doxepin 25 mg capsule 09/17 completed Not Available Not Available Not Available lisinopril 20 mg tablet 09/17 completed Not Available Not Available Not Available glipizide 10 mg tablet Take 1 tablet twice a day by oral route. 09/17 completed Not Available Not Available Not Available gabapentin 400 mg capsule 09/17 completed Not Available Not Available Not Available clonazepam 1 mg tablet Take 1 tablet every day by oral route. active Not Available Not Available No t Available atenolol 25 mg tablet active Not Available Not Available Not Available Lantus U-100 Insulin 100 unit/mL subcutaneo us solution 40 units at night active Not Available Not Available No t Available penicillin V potassium 500 mg tablet 09/17 completed Not Available Not Available Not Available acetaminop hen 300 mg-codeine 30 mg tablet 09/17 completed Not Available Not Available Not Available clopidogre l 75 mg tablet Take 1 tablet every day by oral route. active Not Available Not Available No t Available morphine ER 30 mg tablet,ext ended release 09/17 completed Not Available Not Available Not Available sulfametho xazole 800 mg-trimeth oprim 160 mg tablet 09/17 completed Not Available Not Available Not Available liothyroni ne 5 mcg tablet 09/17 completed Not Available Not Available Not Available tramadol 50 mg tablet 09/17 completed Not Available Not Available Not Available oxycodone 15 mg tablet 09/17 completed Not Available Not Available Not Available pantoprazo le 20 mg tablet,del ayed release 09/17 completed Not Available Not Available Not Available meloxicam 7.5 mg tablet 09/17 completed Not Available Not Available Not Available oxycodone- acetaminop hen 5 mg-325 mg tablet 09/17 completed Not Available Not Available Not Available isosorbide mononitrat e ER 60 mg tablet,ext ended release 24 hr active Not Available Not Available Not Available ziprasidon e 20 mg capsule 09/17 completed Not Available Not Available Not Available oxycodone- acetaminop hen 10 mg-325 mg tablet 09/17 completed Not Available Not Available Not Available Humalog U-100 Insulin 100 unit/mL subcutaneo us solution active Not Available Not Available Not Available dexamethas one 1 mg tablet 09/17 completed Not Available Not Available Not Available ropinirole 2 mg tablet 09/17 completed Not Available Not Available Not Available cephalexin 500 mg capsule 09/17 completed Not Available Not Available Not Available cyanocobal donald (vit B-12) 1,000 mcg/mL injection solution active Not Available Not Available Not Available trazodone 150 mg tablet active Not Available Not Available Not Available Unithroid 150 mcg tablet Take 1 tablet every day by oral route. 09/17 completed Not Available Not Available Not Available Advair Diskus 250 mcg-50 mcg/dose powder for inhalation active Not Available Not Available N ot Available bupropion HCl 75 mg tablet active Not Available Not Available Not Available Combivent 18 mcg-103 mcg/actuat ion aerosol inhaler active Not Available Not Available Not Available ibuprofen 200 mg tablet 09/17 completed Not Available Not Available Not Available Requip 4 mg tablet Take 1 tablet every day by oral route. 09/17 completed Not Available Not Available Not Available betamethas one, augmented 0.05 % topical ointment active Not Available Not Available Not Available gabapentin 300 mg capsule Take 1 capsule 3 times a day by oral route. active Not Available Not Available No t Available omeprazole 20 mg capsule,de layed release active Not Available Not Available Not Available hydrocodon e 5 mg-acetami nophen 500 mg tablet 09/17 completed Not Available Not Available Not Available acyclovir 200 mg capsule 09/17 completed Not Available Not Available Not Available furosemide 20 mg tablet 09/17 completed Not Available Not Available Not Available gabapentin 100 mg capsule 09/17 completed Not Available Not Available Not Available Novolog U-100 Insulin aspart 100 unit/mL subcutaneo us solution 09/17 completed Not Available Not Available Not Available polyethyle ne glycol 3350 17 gram/dose oral powder active Not Available Not Available Not Available levofloxac in 500 mg tablet 09/17 completed Not Available Not Available Not Available zolpidem 10 mg tablet 09/17 completed Not Available Not Available Not Available OxyContin 10 mg tablet,ext ended release Take 1 tablet every 12 hours by oral route. 09/17 completed Not Available Not Available Not Available Vitamin D2 1,250 mcg (50,000 unit) capsule Take 1 capsule every week by oral route. 09/17 completed Not Available Not Available Not Available lisinopril 40 mg tablet Take 1 tablet every day by oral route. active Not Available Not Available No t Available fluticason e propionate 50 mcg/actuat ion nasal spray,susp ension active Not Available Not Available Not Available Endocet 7.5 mg-500 mg tablet 09/17 completed Not Available Not Available Not Available levothyrox ine 112 mcg tablet active Not Available Not Available N ot Available Flexeril 10 mg tablet Take 1 tablet 3 times a day by oral route. 09/17 completed Not Available Not Available Not Available oxycodone 5 mg tablet active Not Available Not Available Not Available Klor-Con M20 mEq tablet,ext ended release 09/17 completed Not Available Not Available Not Available Spiriva with HandiHaler 18 mcg and inhalation capsules Inhale 1 capsule every day by inhalati on route. active Not Available Not Available No t Available Icy Hot (menthol) 5 % topical patch active Not Available Not Available Not Available Nitrostat as needed active Not Available Not Available No t Available Humalog U-100 Insulin sliding scale active Not Available Not Available No t Available Ventolin HFA 2 puff 4 times daily 09/17 completed as needed Not Available Not Available Not Available BD Insulin Syringe Ult-Fine II 0.5 mL 31 gauge x 5/16 active Not Available Not Available Not Available BD Insulin Syringe Ult-Fine II 0.3 mL 31 gauge x 5/16 active Not Available Not Available Not Available BD Ultra-Fine Short Pen Needle 31 gauge x 16 active Not Available Not Available Not Available Symbicort 80 mcg-4.5 mcg/actuat ion HFA aerosol inhaler Inhale 2 puffs twice a day by inhalati on route. 09/17 completed as needed Not Available Not Available Not Available peg 3350 240 gram-elect rolytes 22.72 gram-6.72 g-5.84 g powdr for soln 09/17 completed Not Available Not Available Not Available Lanyolande Torresostar U-100 Insulin 100 unit/mL (3 mL) subcutaneo us pen 09/17 completed Not Available Not Available Not Available oxycodone 20 mg tablet 09/17 completed Not Available Not Available Not Available oxycodone 10 mg tablet Take 1 tablet twice a day by oral route. 09/17 completed Not Available Not Available Not Available D3-2000 50 mcg (2,000 unit) capsule active Not Available Not Available Not Available fluoxetine 60 mg tablet active Not Available Not Available Not Available Vitals Date Recorded Body height Body weight Body mass index (BMI) Heart rate Oxygen saturation Oxygen saturation in Arterial blood by Pulse oximetry Systolic blood pressure Diastolic blood pressure Provider Name and Address Organization Details Last Updated DateTime 2 165.1 cm 21649.3 977 g 34.9 kg/m2 90 /min 95 % 95 % 154 mm[Hg] 76 mm[Hg] Irene Cowart MA [facility] 2 11:09:09 Date Recorded Heart rate Oxygen saturation Oxygen saturation in Arterial blood by Pulse oximetry Body height Body mass index (BMI) Body weight Systolic blood pressure Diastolic blood pressure Provider Name and Address Organization Details Last Updated DateTime 8 83 /min 94 % 94 % 163.83 cm 35 kg/m2 55875.6 2 g 173 mm[Hg] 73 mm[Hg] Irene Luciano [facility] 8 14:18:20 Social History Question Answer Notes LastModified by Organizat ion Details LastModified Time Tobacco Smoking Status Current Every Day Smoker Not Available [employer] 04/21/2020 03:16:12 What Is Your Level Of Alcohol Consumption? None [id number] Information not available 04/21/2020 Are You Currently Employed? No Disability [id number] Information not available 04/21/2020 Which Illicit Or Recreational Drugs Have You Used? No [id number] Information not available 04/21/2020 Education 12 Some College Information not available 10/03/2011 Live Alone Or With Others? Alone Information not available 09/17/2017 Marital Status Single Informatio n not available 10/03/2011 What Was The Date Of Your Most Recent Tobacco Screening? 09/17/2017 [id number] Information not available 04/21/2020 How Much Tobacco Do You Smoke? 0.5 PPD [id number] Information not available 04/21/2020 Sex: Unknown Functional Status None recorded. Mental Status None recorded. Family History Relationship Description Onset Age of this Age Resolved Age Notes LastModified by Organization Details LastModified Time Mother Diabetes mellitus IDDM (previ ously record ed as Diabet es) [id number] [id number] Not available 03/28/2013 03:02:00 Sister Diabetes mellitus IDDM (previ ously record ed as Diabet es) [id number] [id number] Not available 03/28/2013 03:02:00 Brother Diabetes mellitus IDDM (previ ously record ed as Diabet es) [email or web address] [id number] Not available 03/28/2013 03:02:00 Father Diabetes mellitus IDDM (previ ously record ed as Diabet es) [id number] [id number] Not available 03/28/2013 03:02:00 Medical History Condition Response Anxiety Disorder Y Diabetes Y Neuropathy/Neuralgia Y Stroke Y Depression Y Asthma Y Hypothyroidism Y GERD/Reflux Y Pulmonary Embolism Y Hypertension Y Osteoporosis Y Kidney Disease Y Gynecological HistoryNo gynecological history recorded. Obstetrics History GPAL:G 0 P 0 0 0 0 Past Encounters Encounter ID Performer Location Encounter Start Date Encounter Closed Date Diagnosis/Indication Diagnosis SNOMED-CT Code Diagnosis ICD10 Code Diagnosis Note [id number] PAIN OFFICE [address] [facility] [place] [address] 10/03/2011 10:20:46 10/03/2011 15:56:21 [id number] Joao Jin MD PAIN OFFICE [address] [facility] [place] [place] [address] 09/17/2017 13:47:21 10/14/2017 14:17:10 Lumbosacral radiculitis 13448931 M54.17 Lumbosacra l spondylosis without myelopathy 64471963 M47.817 Displaceme nt of lumbar intervertebral disc without myelopathy 12374890 M51.26 Spinal eli nosis of lumbar region 42822721 M48.062 Health Concerns Section Related Observation LastModified by Organization Detai ls LastModified Time None Recorded Concern Status LastModified by Organization Details LastModified Time None Recorded Advance Directives Directive None Recorded Payers Encounter Date Sequence Insurance Name Policy Number Policy Murray Covered Member ID Murray Member ID Guarantor Name 10/03/2011 1 [place] [id number] Rosie Velazquez [id number] Rosie Velazquez 10/03/2011 2 [place] [facility] Rosie Velazquez [id number] Rosie Velazquez 09/17/2017 1 [employer] [facility] (MEDICARE - MEDICAID REPLACEMENT) Rosie Velazquez [id number] Rosie Velazquez Notes Date Note Type Note Provider Name and Address Organization Details Recorded Time 09/17/2017 text/html Rosie Velazquez is a 62 year old woman with complaints of low back pain radiating into both thighs , right is greater than left. She has been having low back pain for many years since 1997. The pain started spontaneously and is becoming greater. She describes the pain as a sharp stabbing pain which is at times throbbing, shooting in nature and associated with tingling and numbness. Pain level is high. Pain is greater with walking, standing and washing dishes. No thing relieves her pain. She has had three prior back surgeries and has hardware in her low back. She has persistent pain. She had injections in the past with no pain benefit. She is on gabapentin and oxycodone with some pain benefit. She uses a walker and has difficulty with ambulation. She has no history of bladder or bowel incontinence. Joao Jin MD [facility] [address] , [address], [place], [address], [place] [facility] 11/04/2017 09:01:17 OBGyn Episode No OBEpisode recorded.
--- OUTSIDE RECORDS SUMMARY | 2024-08-03 16:30 | XMS_ITS | Clinical Summary ---
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 Care Decision (hx) 11/23/2017 AD SAVAGE DIRECTIVE Health Care Decision (hx) 11/23/2017 AD SAVAGE DIRECTIVE Health Care Decision (hx) 11/23/2017 AD SAVAGE DIRECTIVE Health Care Decision (hx) 11/23/2017 AD SAVAGE DIRECTIVE Health Care Decision (hx) 11/23/2017 AD ASVAGE DIRECTIVE Health Care Decision (hx) 11/23/2017 AD SAVAGE DIRECTIVE Health Care Decision (hx) 11/23/2017 AD SAVAGE DIRECTIVE Health Care Decision (hx) 11/23/2017 AD SAVAGE DIRECTIVE Health Care Decision (hx) 11/23/2017 AD SAVAGE DIRECTIVE Health Care Decision (hx) 11/23/2017 AD SAVAGE DIRECTIVE Health Care Decision (hx) 11/23/2017 AD SAVAGE DIRECTIVE Health Care Decision (hx) 11/23/2017 AD SAVAGE DIRECTIVE Health Care Decision (hx) 11/23/2017 AD SAVAGE DIRECTIVE Health Care Decision (hx) 11/23/2017 AD SAVAGE DIRECTIVE Health Care Decision (hx) 11/23/2017 AD SAVAGE DIRECTIVE Health Care Decision (hx) 11/23/2017 AD SAVAGE DIRECTIVE Health Care Decision (hx) 11/23/2017 AD SAVAGE DIRECTIVE Health Care Decision (hx) 11/23/2017 AD SAVAGE DIRECTIVE Health Care Decision (hx) 11/23/2017 AD SAVAGE DIRECTIVE Health Care Decision (hx) 11/23/2017 AD SAVAGE DIRECTIVE Health Care Decision (hx) 11/23/2017 AD SAVAGE DIRECTIVE Health Care Decision (hx) 11/23/2017 AD SAVAGE DIRECTIVE Health Care Decision (hx) 11/23/2017 AD SAVAGE DIRECTIVE Health Care Decision (hx) 11/23/2017 AD SAVAGE DIRECTIVE Health Care Decision (hx) 11/23/2017 AD SAVAGE DIRECTIVE Health Care Decision (hx) 11/23/2017 AD SAVAGE DIRECTIVE Health Care Decision (hx) 11/23/2017 AD SAVAGE DIRECTIVE Health Care Decision (hx) 11/23/2017 AD SAVAGE DIRECTIVE Health Care Decision (hx) 11/23/2017 AD SAVAGE DIRECTIVE Health Care Decision (hx) 11/23/2017 AD SAVAGE DIRECTIVE Health Care Decision (hx) 11/23/2017 AD SAVAGE DIRECTIVE Health Care Decision (hx) 11/23/2017 AD SAVAGE DIRECTIVE Health Care Decision (hx) 11/23/2017 AD SAVAGE DIRECTIVE Health Care Decision (hx) 11/23/2017 AD SAVAGE DIRECTIVE Health Care Decision (hx) 11/23/2017 AD SAVAGE DIRECTIVE Health Care Decision (hx) 07/03/2015 AD SAVAGE DIRECTIVE Health Care Decision (hx) 07/03/2015 AD SAVAGE DIRECTIVE Health Care Decision (hx) 07/03/2015 AD SAVAGE DIRECTIVE Health Care Decision (hx) 07/03/2015 AD SAVAGE DIRECTIVE Health Care Decision (hx) 07/03/2015 AD SAVAGE DIRECTIVE Health Care Decision (hx) 07/03/2015 AD SAVAGE DIRECTIVE Health Care Decision (hx) 07/03/2015 AD SAVAGE DIRECTIVE Health Care Decision (hx) 07/03/2015 AD SAVAGE DIRECTIVE Health Care Decision (hx) 07/03/2015 AD SAVAGE DIRECTIVE Health Care Decision (hx) 07/03/2015 AD SAVAGE DIRECTIVE Health Care Decision (hx) 07/03/2015 AD SAVAGE DIRECTIVE Health Care Decision (hx) 07/03/2015 AD SAVAGE DIRECTIVE Health Care Decision (hx) 07/03/2015 AD SAVAGE DIRECTIVE Health Care Decision (hx) 07/03/2015 AD SAVAGE DIRECTIVE Health Care Decision (hx) 07/03/2015 AD SAVAGE DIRECTIVE Health Care Decision (hx) 07/03/2015 AD SAVAGE DIRECTIVE Health Care Decision (hx) 07/03/2015 AD SAVAGE DIRECTIVE Health Care Decision (hx) 07/03/2015 AD SAVAGE DIRECTIVE Health Care Decision (hx) 07/03/2015 AD SAVAGE DIRECTIVE Health Care Decision (hx) 07/03/2015 AD SAVAGE DIRECTIVE Health Care Decision (hx) 07/03/2015 AD SAVAGE DIRECTIVE Health Care Decision (hx) 07/03/2015 AD SAVAGE DIRECTIVE Health Care Decision (hx) 07/03/2015 AD SAVAGE DIRECTIVE Health Care Decision (hx) 07/03/2015 AD SAVAGE DIRECTIVE Health Care Decision (hx) 07/03/2015 AD SAVAGE DIRECTIVE Health Care Decision (hx) 07/03/2015 AD SAVAGE DIRECTIVE Health Care Decision (hx) 07/03/2015 AD SAVAGE DIRECTIVE Health Care Decision (hx) 07/03/2015 AD SAVAGE DIRECTIVE Health Care Decision (hx) 07/03/2015 AD SAVAGE DIRECTIVE Health Care Decision (hx) 07/03/2015 AD SAVAGE DIRECTIVE Health Care Decision (hx) 07/03/2015 AD SAVAGE DIRECTIVE Health Care Decision (hx) 07/03/2015 AD SAVAGE DIRECTIVE Health Care Decision (hx) 07/03/2015 AD SAVAGE DIRECTIVE Health Care Decision (hx) 07/03/2015 AD SAVAGE DIRECTIVE Health Care Decision (hx) 07/03/2015 AD SAVAGE DIRECTIVE Health Care Decision (hx) 07/03/2015 AD SAVAGE DIRECTIVE Health Care Decision (hx) 07/03/2015 AD SAVAGE DIRECTIVE Health Care Decision (hx) 07/03/2015 AD SAVAGE DIRECTIVE Health Care Decision (hx) 07/03/2015 AD SAVAGE DIRECTIVE Health Care Decision (hx) 07/03/2015 AD SAVAGE DIRECTIVE Health Care Decision (hx) 07/03/2015 AD SAVAGE DIRECTIVE Health Care Decision (hx) 07/03/2015 AD SAVAGE DIRECTIVE Health Care Decision (hx) 07/03/2015 AD SAVAGE DIRECTIVE Health Care Decision (hx) 07/03/2015 AD SAVAGE DIRECTIVE Health Care Decision (hx) 07/03/2015 AD SAVAGE DIRECTIVE Health Care Decision (hx) 07/03/2015 AD SAVAGE DIRECTIVE Health Care Decision (hx) 07/03/2015 AD SAVAGE DIRECTIVE Health Care Decision (hx) 07/03/2015 AD SAVAGE DIRECTIVE Health Care Decision (hx) 07/03/2015 AD SAVAGE DIRECTIVE Health Care Decision (hx) 07/03/2015 AD SAVAGE DIRECTIVE Health Care Decision (hx) 07/03/2015 AD SAVAGE DIRECTIVE Health Care Decision (hx) 07/03/2015 AD SAVAGE DIRECTIVE Health Care Decision (hx) 07/03/2015 AD SAVAGE DIRECTIVE Health Care Decision (hx) 07/03/2015 AD SAVAGE DIRECTIVE Health Care Decision (hx) 12/21/2014 AD SAVAGE DIRECTIVE Health Care Decision (hx) 12/21/2014 AD SAVAGE DIRECTIVE Health Care Decision (hx) 12/21/2014 AD SAVAGE DIRECTIVE Health Care Decision (hx) 12/21/2014 AD SAVAGE DIRECTIVE Health Care Decision (hx) 12/21/2014 AD SAVAGE DIRECTIVE Health Care Decision (hx) 12/21/2014 AD SAVAGE DIRECTIVE Health Care Decision (hx) 12/21/2014 AD SAVAGE DIRECTIVE Health Care Decision (hx) 12/21/2014 AD SAVGAE DIRECTIVE Health Care Decision (hx) 12/21/2014 AD SAVAGE DIRECTIVE Health Care Decision (hx) 12/21/2014 AD SAVAGE DIRECTIVE Health Care Decision (hx) 12/21/2014 AD SAVAGE DIRECTIVE Health Care Decision (hx) 12/21/2014 AD SAVAGE DIRECTIVE Health Care Decision (hx) 12/21/2014 AD SAVAGE DIRECTIVE Health Care Decision (hx) 12/21/2014 AD SAVAGE DIRECTIVE Health Care Decision (hx) 12/21/2014 AD SAVAGE DIRECTIVE Health Care Decision (hx) 12/21/2014 AD SAVAEG DIRECTIVE Health Care Decision (hx) 12/21/2014 AD SAVAGE DIRECTIVE Health Care Decision (hx) 12/21/2014 AD SAVAGE DIRECTIVE Health Care Decision (hx) 12/21/2014 AD SAVAGE DIRECTIVE Health Care Decision (hx) 12/21/2014 AD SAVAGE DIRECTIVE Health Care Decision (hx) 12/21/2014 AD SAVAGE DIRECTIVE Health Care Decision (hx) 12/21/2014 AD SAVAGE DIRECTIVE Health Care Decision (hx) 12/21/2014 AD SAVAGE DIRECTIVE Health Care Decision (hx) 12/21/2014 AD SAVAGE DIRECTIVE Health Care Decision (hx) 12/21/2014 AD SAVAGE DIRECTIVE Health Care Decision (hx) 12/21/2014 AD SAVAGE DIRECTIVE Health Care Decision (hx) 12/21/2014 AD SAVAGE DIRECTIVE Health Care Decision (hx) 12/21/2014 AD SAVAGE DIRECTIVE Health Care Decision (hx) 12/21/2014 AD SAVAGE DIRECTIVE Health Care Decision (hx) 12/21/2014 AD SAVAGE DIRECTIVE Health Care Decision (hx) 12/21/2014 AD SAVAGE DIRECTIVE Health Care Decision (hx) 12/21/2014 AD SAVAGE DIRECTIVE Health Care Decision (hx) 12/21/2014 AD SAVAGE DIRECTIVE Health Care Decision (hx) 12/21/2014 AD SAVAGE DIRECTIVE Health Care Decision (hx) 12/21/2014 AD SAVAGE DIRECTIVE Health Care Decision (hx) 12/21/2014 AD SAVAGE DIRECTIVE Health Care Decision (hx) 12/21/2014 AD SAVAGE DIRECTIVE Health Care Decision (hx) 12/21/2014 AD SAVAGE DIRECTIVE Health Care Decision (hx) 12/21/2014 AD SAVAGE DIRECTIVE Health Care Decision (hx) 12/21/2014 AD SAVAGE DIRECTIVE Health Care Decision (hx) 12/21/2014 AD SAVAGE DIRECTIVE Health Care Decision (hx) 12/21/2014 AD SAVAGE DIRECTIVE Health Care Decision (hx) 12/21/2014 AD SAVAGE DIRECTIVE Health Care Decision (hx) 12/21/2014 AD SAVAGE DIRECTIVE Health Care Decision (hx) 12/21/2014 AD SAVAGE DIRECTIVE Health Care Decision (hx) 12/21/2014 AD SAVAGE DIRECTIVE Health Care Decision (hx) 12/21/2014 AD SAVAGE DIRECTIVE Health Care Decision (hx) 12/21/2014 AD SAVAGE DIRECTIVE Health Care Decision (hx) 12/21/2014 AD SAVAGE DIRECTIVE Health Care Decision (hx) 12/21/2014 AD SAVAGE DIRECTIVE Health Care Decision (hx) 12/21/2014 AD SAVAGE DIRECTIVE Health Care Decision (hx) 12/21/2014 AD SAVAGE DIRECTIVE Health Care Decision (hx) 12/21/2014 AD SAVAGE DIRECTIVE Health Care Decision (hx) 12/21/2014 AD SAVAGE DIRECTIVE Health Care Decision (hx) 10/06/2014 AD SAVAGE DIRECTIVE Health Care Decision (hx) 10/06/2014 AD SAVAGE DIRECTIVE Health Care Decision (hx) 10/06/2014 AD SAVAGE DIRECTIVE Health Care Decision (hx) 10/06/2014 AD SAVAGE DIRECTIVE Health Care Decision (hx) 10/06/2014 AD SAVAGE DIRECTIVE Health Care Decision (hx) 10/06/2014 AD SAVAGE DIRECTIVE Health Care Decision (hx) 10/06/2014 AD SAVAGE DIRECTIVE Health Care Decision (hx) 10/06/2014 AD SAVAGE DIRECTIVE Health Care Decision (hx) 10/06/2014 AD SAVAGE DIRECTIVE Health Care Decision (hx) 10/06/2014 AD SAVAGE DIRECTIVE Health Care Decision (hx) 10/06/2014 AD SAVAGE DIRECTIVE Health Care Decision (hx) 10/06/2014 AD SAVAGE DIRECTIVE Health Care Decision (hx) 10/06/2014 AD SAVAGE DIRECTIVE Health Care Decision (hx) 10/06/2014 AD SAVAGE DIRECTIVE Health Care Decision (hx) 10/06/2014 AD SAVAGE DIRECTIVE Health Care Decision (hx) 10/06/2014 AD SAVAGE DIRECTIVE Health Care Decision (hx) 10/06/2014 AD SAVAGE DIRECTIVE Health Care Decision (hx) 10/06/2014 AD SAVAGE DIRECTIVE Health Care Decision (hx) 10/06/2014 AD SAVAGE DIRECTIVE Health Care Decision (hx) 10/06/2014 AD SAVAGE DIRECTIVE Health Care Decision (hx) 10/06/2014 AD SAVAGE DIRECTIVE Health Care Decision (hx) 10/06/2014 AD SAVAGE DIRECTIVE Health Care Decision (hx) 10/06/2014 AD SAVAGE DIRECTIVE Health Care Decision (hx) 10/06/2014 AD SAVAGE DIRECTIVE Health Care Decision (hx) 10/06/2014 AD SAVAGE DIRECTIVE Health Care Decision (hx) 10/06/2014 AD SAVAGE DIRECTIVE Health Care Decision (hx) 10/06/2014 AD SAVAGE DIRECTIVE Health Care Decision (hx) 10/06/2014 AD SAVAGE DIRECTIVE Health Care Decision (hx) 10/06/2014 AD SAVAGE DIRECTIVE Health Care Decision (hx) 10/06/2014 AD SAVAGE DIRECTIVE Health Care Decision (hx) 10/06/2014 AD SAVAGE DIRECTIVE Health Care Decision (hx) 10/06/2014 AD SAVAGE DIRECTIVE Health Care Decision (hx) 10/06/2014 AD SAVAGE DIRECTIVE Health Care Decision (hx) 10/06/2014 AD SAVAGE DIRECTIVE Health Care Decision (hx) 10/06/2014 AD SAVAGE DIRECTIVE Health Care Decision (hx) 10/06/2014 AD SAVAGE DIRECTIVE Health Care Decision (hx) 10/06/2014 AD SAVAGE DIRECTIVE Health Care Decision (hx) 10/06/2014 AD SAVAGE DIRECTIVE Health Care Decision (hx) 10/06/2014 AD SAVAGE DIRECTIVE Health Care Decision (hx) 10/06/2014 AD SAVAGE DIRECTIVE Health Care Decision (hx) 10/06/2014 AD SAVAGE DIRECTIVE Health Care Decision (hx) 10/06/2014 AD SAVAGE DIRECTIVE Health Care Decision (hx) 10/06/2014 AD SAVAGE DIRECTIVE Health Care Decision (hx) 10/06/2014 AD SAVAGE DIRECTIVE Health Care Decision (hx) 10/06/2014 AD SAVAGE DIRECTIVE Health Care Decision (hx) 10/06/2014 AD SAVAGE DIRECTIVE Health Care Decision (hx) 10/06/2014 AD SAVAGE DIRECTIVE Health Care Decision (hx) 10/06/2014 AD SAVAGE DIRECTIVE Health Care Decision (hx) 10/06/2014 AD SAVAGE DIRECTIVE Health Care Decision (hx) 10/06/2014 AD SAVAGE DIRECTIVE Health Care Decision (hx) 10/06/2014 AD SAVAGE DIRECTIVE Health Care Decision (hx) 10/06/2014 AD SAVAGE DIRECTIVE Health Care Decision (hx) 10/06/2014 AD SAVAGE DIRECTIVE Health Care Decision (hx) 10/06/2014 AD SAVAGE DIRECTIVE Care Teams Coating Machine Operator Relationship Specialty Start Date End Date Jennifer Wu NP [address] [address] PCP - General Family Medicine 05/14/24
--- OUTSIDE RECORDS SUMMARY | 2024-08-03 16:30 | XMS_ITS | Clinical Summary ---
Author Organization [facility] Address [address] [place] [address] Phone Care Team Providers Care Cotton Puller Name Role Phone NO PCP, , Primary Care Provider Unavailabl e [facility] Unavailable Unavailable Reason for Visit and Chief Complaint Medicare New Patient Plan of Treatment Future Appointments Date Time Location Provi mary Procedure 08/23/2024 9:00AM [facility] Ernestine Kennedy MD Last Documented On 10:26AM ; [facility] Assessments Includes: Assessments from this encounter No [...] nic Dates 1 - [facility] [id number] Rosie Velazquez Self Clinical Notes Includes: Clinical Notes from this encounter No Clinical Notes Recorded
--- NOTE | 2024-08-03 16:45 | PC.NURSE ---
care team at bedside speaking to the patient
--- NOTE | 2024-08-03 18:30 | PC.NURSE ---
pt is bed search on section 12
[2024-08-03 18:38] VITALS: BP 149/64; PULSE 60; RESP 20; TEMP 36.9; O2SAT 94
[2024-08-03 21:54] VITALS: BP 188/68; PULSE 68; RESP 20; TEMP 36.4; O2SAT 91
--- NOTE | 2024-08-03 21:55 | MHC.EDTECH ---
Pt Oxygen cannister replaced with a full tank by this tech. Pt placed on 4 liters
--- NOTE | 2024-08-03 22:20 | PC.NURSE ---
Spoke with Pharmacy department regarding medication reconciliation. I was able to partially complete the medication reconciliation with the provider over the phone, but call was interrupted when the line dropped. I attempted to call the provider back at [phone], but no response. Left voicemail, awaiting call back. Patient is currently reporting chronic lower back & leg pain and requesting pain medication.
[2024-08-03] MEDS: oxyCODONE HCl Immed Release 5 MG TABLET 10 MG PO (22:38)
[2024-08-03] MEDS: LORazepam 0.5 MG TABLET PO (22:39)
[2024-08-03] MEDS: Gabapentin 600 MG TABLET PO (22:39)
[2024-08-03 23:55] VITALS: BP 169/69; PULSE 62; RESP 18; TEMP 36.6; O2SAT 97
[2024-08-04 02:00] VITALS: RESP 20
[2024-08-04 04:00] VITALS: RESP 18
[2024-08-04] MEDS: oxyCODONE HCl Immed Release 5 MG TABLET 10 MG PO ×4 (04:00→18:20)
--- NOTE | 2024-08-04 04:00 | PC.NURSE ---
Medicated for pain with Oxycodone 10mg Q4H as scheduled/ordered. Given diet colette nehal with medications. Encouraged to provide urine specimen when able. Section [address], sitter at bedside. Pleasant/calm/cooperative. No other needs at this time.
[2024-08-04 06:00] VITALS: BP 157/75; PULSE 56; RESP 16; TEMP 36.6; O2SAT 97
[2024-08-04 06:38] LABS: Glucose, Whole Blood 209 mg/dL (60-115)
[2024-08-04 06:42] LABS: Appearance Urine Cloudy; Color Urine Yellow; Glucose Urine UA 500 mg/dL (Negative); Leukocyte Esterase Urine Negative (Negative); Nitrite Urine Negative (Negative); Urine Blood Negative (Negative); Urine Ketones Negative (Negative); Urine Protein Trace mg/dL (Neg-Trace)
[2024-08-04 06:45] LABS: Amphetamine Screen Urine Not Detected (Not Detect); Barbiturates, Urine Not Detected (Not Detect); Benzodiazepines Screen Urine Not Detected (Not Detect); Buprenorphine Scr Not Detected (Not Detect); Cannabinoid Screen Urine Not Detected (Not Detect); Cocaine Screen Urine Not Detected (Not Detect); Fentanyl, urine Not Detected (Not Detect); Methadone Screen, Urine Not Detected (Not Detect); Opiate Screen Urine POSITIVE (Not Detect); Oxycodone Screen Urine Positive (Not Detect); Phencyclidine Screen Urine Not Detected (Not Detect)
[2024-08-04 06:47] LABS: Bacteria Urine None Seen (None Seen); Hyaline Casts Urine 0-2 /LPF (0-2); RBC Urine 0-2 /HPF (0-2); Squamous Epithelial Cell Urine 0-2 /HPF (0-2); WBC Urine 0-5 /HPF (0-5)
[2024-08-04 07:17] VITALS: BP 135/67; PULSE 62; RESP 20; TEMP 36.9; O2SAT 99
[2024-08-04] MEDS: Insulin Glargine,Hum.rec.anlog 100 UNIT/ML 10 ML VIAL 31 UNIT SUBCUT (07:19)
[2024-08-04] MEDS: FLUoxetine HCl 20 MG CAPSULE 40 MG PO (07:19)
[2024-08-04] MEDS: Insulin Lispro 100 UNIT/ML 3 ML VIAL SUBCUT ×3 (07:19→18:20)
[2024-08-04] MEDS: Metoprolol Succinate ER 50 MG TAB.ER.24H PO (07:20)
[2024-08-04] MEDS: LORazepam 0.5 MG TABLET PO (07:22)
[2024-08-04] MEDS: Furosemide 20 MG TABLET PO (07:22)
[2024-08-04] MEDS: Isosorbide Mononitrate 60 MG TAB.ER.24H PO (07:22)
[2024-08-04] MEDS: Gabapentin 600 MG TABLET PO ×2 (07:23→14:42)
[2024-08-04] MEDS: Aspirin Enteric Coated 81 MG TABLET.DR PO (07:23)
[2024-08-04 09:48] VITALS: BP 163/56; PULSE 58; RESP 19; O2SAT 96
--- NOTE | 2024-08-04 09:57 | ECG_ITS ---
Test Reason : PSYCH EVALUATION Blood Pressure : */* mmHG Vent. Rate : 58 BPM Atrial Rate : 58 BPM P-R Int : 214 ms QRS Dur : 78 ms QT Int : 430 ms P-R-T Axes : 77 70 76 degrees QTcB Int : 422 ms Sinus bradycardia with 1st degree A-V block Otherwise normal ECG No previous ECGs available Referred By: Nancy Lowery Electronically Signed By: KORTNEY RIVERS
[2024-08-04 10:24] LABS: Glucose, Whole Blood 259 mg/dL (60-115)
--- NOTE | 2024-08-04 13:40 | PHA.MEDREC ---
Pharmacy Consult ? Medication Reconciliation Pharmacy reviewed med rec partially done by nursing. I got a list faxed from [facility] I was able to compare the lists with and all matched but or Pantoprazole 40mg tabs and the Novolog FlexPen, those were not on the recent fill. I spoke with the patient who confirmed the medications and also confirmed she is still using the Novolog FlexPen as needed for high blood sugar levels and she also confirmed she is still taking the Pantoprazole 40mg tab once daily and stated she is still taking it. I called [facility] and they were able to confirm with me that they have not filled the Novolog FlexPen since October of 2023 and they looked through and saw that the Pantoprazole 40mg tab has not been filled at their facility since 2018. The patient states she took her medicaitons last yesterday morning.
--- NOTE | 2024-08-04 13:48 | PHA.MEDREC ---
Addendum entered by Helen Guerrero [facility] 08/04/24 14:29: reviewed by [facility]. Original Note: Pharmacy Consult ? Medication Reconciliation Pharmacy has completed the medication reconciliation. Pharmacy reviewed med rec partially done by nursing. I got a list faxed from [facility] I was able to compare the lists with and all matched but or Pantoprazole 40mg tabs and the Novolog FlexPen, those were not on the recent fill. I spoke with the patient who confirmed the medications and also confirmed she is still using the Novolog FlexPen as needed for high blood sugar levels and she also confirmed she is still taking the Pantoprazole 40mg tab once daily and stated she is still taking it. I called [facility] and they were able to confirm with me that they have not filled the Novolog FlexPen since October of 2023 and they looked through and saw that the Pantoprazole 40mg tab has not been filled at their facility since 2017. the patient confirmed the Vitamin D3 125mcg tab on Mondays and confirmed she took it this past Friday. She also confirmed her Trulicity once a week on and confirmed she took it this past . She confirmed she is taking her Oxycodone 10mg tab every 4 hours. The patient stated she is taking Trazodone 300mg at bedtime and looking at the list from her pharmacy they had filled Trazodone 100mg taking 2 tabs at bedtime for sleep but the patient was adamant she is on 300mg at bedtime. The patient states she took her medications last yesterday morning.
[2024-08-04 15:26] LABS: Glucose, Whole Blood 210 mg/dL (60-115)
[2024-08-04 18:09] LABS: Glucose, Whole Blood 238 mg/dL (60-115)
[2024-08-04 21:31] VITALS: BP 127/54; PULSE 58; RESP 18; TEMP 36.9; O2SAT 99
--- NOTE | 2024-08-04 21:44 | PC.NURSE ---
Pt reports having some increased shortness of breath after walking to the bathroom and back. LS reveal mild expiratory wheezing bilaterally. Able to speak in full sentences at this time. Pt also reports having some general abd discomfort, a chronic condition that she has been evaluated for in the past with no clear conclusion. Skin is warm, pink, and dry and pt is able to lie comfortably on the stretcher in semi-claire's position.
--- NOTE | 2024-08-04 22:56 | PC.NURSE ---
Pt is awake, alert, and oriented X 4, has been resting most of the shift, appears comfortable. Verbalizes her needs appropriately. No acute distress observed throughout shift. Direct observation at the bedside for safety. Consult with care team is pending. Disposition is also pending. Pt is here with SI with a plan.
--- NOTE | 2024-08-04 23:31 | PC.NURSE ---
This justowriter operator assumed care of this Pt at 2300.
[2024-08-04 23:49] LABS: Glucose, Whole Blood 172 mg/dL (60-115)
[2024-08-05] MEDS: Insulin Lispro 100 UNIT/ML 3 ML VIAL SUBCUT ×5 (00:16→20:36)
[2024-08-05] MEDS: Gabapentin 600 MG TABLET PO ×4 (00:16→20:29)
[2024-08-05] MEDS: LORazepam 0.5 MG TABLET PO ×3 (00:16→20:29)
[2024-08-05] MEDS: oxyCODONE HCl Immed Release 5 MG TABLET 10 MG PO ×7 (00:35→21:19)
--- NOTE | 2024-08-05 00:45 | PC.NURSE ---
Pt A&Ox3, requesting scheduled medication for chronic pain, provider made aware, new order given per SEP. Pt denies SI/HI/AH/VH. Sitter at bedside. Pt On 4L of O2 via NC.
[2024-08-05 06:37] VITALS: BP 144/60; PULSE 52; RESP 18; TEMP 36.7; O2SAT 97
[2024-08-05 07:42] LABS: Glucose, Whole Blood 184 mg/dL (60-115)
[2024-08-05 08:05] VITALS: BP 144/60; PULSE 52
[2024-08-05] MEDS: FLUoxetine HCl 20 MG CAPSULE 40 MG PO (08:05)
[2024-08-05] MEDS: Furosemide 20 MG TABLET PO (08:05)
[2024-08-05] MEDS: Metoprolol Succinate ER 50 MG TAB.ER.24H PO (08:05)
[2024-08-05 08:06] VITALS: BP 144/60
[2024-08-05] MEDS: Isosorbide Mononitrate 60 MG TAB.ER.24H PO (08:06)
[2024-08-05] MEDS: Aspirin Enteric Coated 81 MG TABLET.DR PO (08:07)
[2024-08-05] MEDS: Insulin Glargine,Hum.rec.anlog 100 UNIT/ML 10 ML VIAL 31 UNIT SUBCUT (08:07)
[2024-08-05] MEDS: Fluticasone/Umeclidinium/Vilanterol 200/62.5/25 BLST.W.DEV 1 PUFF INHALE (08:41)
[2024-08-05 13:28] LABS: Glucose, Whole Blood 256 mg/dL (60-115)
--- NOTE | 2024-08-05 14:45 | PC.NURSE ---
Patient did receive her 10mg of oxycodone but got it late, could not document in the MAR as already greyed out.
--- NOTE | 2024-08-05 16:04 | P.CNPS_ITS ---
History of Present Illness Date of Service: 08/05/2024 Chief Complaint: SI THOUGHTS TO OD ON MEDS,SEC 12 PER EMS Sources of Information: patient interviewed, chart reviewed and crisis/core team assessment reviewed HPI Narrative: Ms. Velazquez is a 69 year-old woman who was brought in on sect 12a after she reported thoughts of wanting to end her life in context of problems with sustainable products marketing manager. Pt has had recent frequent falls. There were some concerns in terms of misuse of medication but per collateral, no concrete evidence. She has been on oxycodone 10mg po QID for some years. I do see early refill of medication recently 10 days after receiving 28 day supply by her PCP. Pt had been seen by care team and deemed psychiatric level of care. Pt had initially agreed to dispo, but given that there is no bed in [facility], pt had asked care team to discharge back home. Pt seen with care team clinician. She reports she feels overwhelmed. She reports main source of distress is with sustainable products marketing manager. She was somewhat guarded when asked about pain medications and how she is taking them quickly stating everybody keeps questioning that! When in fact, it has not been brought up by care team or providers. She denied plan or intent to harm herself but did continue to endorse depressed mood, feeling overwhelmed and wanting help with her mood. She is currently not connected with psychiatric services. Past Psychiatric History: INpt: none in the past OP: none denies hx of suicide attempts. Medical Evaluation Reviewed: Yes Diagnostics Vital Signs (24Hr): Vital Signs - 24 hr 08/04/24 21:31 08/05/24 06:37 08/05/24 08:05 Temperature 98.4 F 98.0 F Pulse Rate 58 52 Respiratory Rate 18 18 Blood Pressure 127/54 L 144/60 H 144/60 H Pulse Oximetry 99 97 Oxygen Delivery Method Room Air Nasal Cannula Oxygen Flow Rate 4 08/05/24 08:05 08/05/24 08:06 Temperature Pulse Rate 52 Respiratory Rate Blood Pressure 144/60 H 144/60 H Pulse Oximetry Oxygen Delivery Method Oxygen Flow Rate BMI result Body Mass Index 28.5 Labs 08/09/24 12:44 08/09/24 12:45 Labs: Laboratory Results - last 48 hr 08/03/24 08/04/24 08/04/24 15:41 06:27 06:34 Sodium 141 Potassium 4.3 Chloride 99 Carbon Dioxide 34 H Anion Gap 12 BUN 13 Creatinine 1.17 Estim Creat Clear Calc 43.8 Estimated GFR 46 POC Glucose 209 H Random Glucose 267 H Calcium 8.2 L Total Bilirubin 0.2 Direct Bilirubin < 0.2 AST 33 H ALT 19 Alkaline Phosphatase 133 H Total Protein 6.3 L Albumin 3.3 L Urine Color Yellow Urine Appearance Cloudy Urine pH 8.0 Ur Specific [place] 1.020 Urine Protein Trace Urine Glucose (UA) 500 H Urine Ketones Negative Urine Blood Negative Urine Nitrite Negative Ur Leukocyte Esterase Negative Urine RBC 0-2 Urine WBC 0-5 Ur Squamous Epith Cells 0-2 Urine Bacteria None Seen Hyaline Casts 0-2 Urine Opiates Screen POSITIVE H Ur Buprenorphine Scrn Not Detected Ur Oxycodone Screen Positive H Urine Methadone Screen Not Detected Urine Fentanyl Screen Not Detected Ur Barbiturates Screen Not Detected Ur Phencyclidine Scrn Not Detected Ur Amphetamines Screen Not Detected U Benzodiazepines Scrn Not Detected Urine Cocaine Screen Not Detected U Marijuana (THC) Screen Not Detected Influenza Type A (PCR) NEGATIVE Influenza Type B (PCR) NEGATIVE RSV RNA Qual (PCR) NEGATIVE SARS-CoV-2 RNA (RT-PCR) NEGATIVE 08/04/24 08/04/24 08/04/24 10:12 13:14 18:04 Sodium Potassium Chloride Carbon Dioxide Anion Gap BUN Creatinine Estim Creat Clear Calc Estimated GFR POC Glucose 259 H 210 H 238 H Random Glucose Calcium Total Bilirubin Direct Bilirubin AST ALT Alkaline Phosphatase Total Protein Albumin Urine Color Urine Appearance Urine pH Ur Specific [place] Urine Protein Urine Glucose (UA) Urine Ketones Urine Blood Urine Nitrite Ur Leukocyte Esterase Urine RBC Urine WBC Ur Squamous Epith Cells Urine Bacteria Hyaline Casts Urine Opiates Screen Ur Buprenorphine Scrn Ur Oxycodone Screen Urine Methadone Screen Urine Fentanyl Screen Ur Barbiturates Screen Ur Phencyclidine Scrn Ur Amphetamines Screen U Benzodiazepines Scrn Urine Cocaine Screen U Marijuana (THC) Screen Influenza Type A (PCR) Influenza Type B (PCR) RSV RNA Qual (PCR) SARS-CoV-2 RNA (RT-PCR) 08/04/24 08/05/24 08/05/24 23:40 07:34 13:25 Sodium Potassium Chloride Carbon Dioxide Anion Gap BUN Creatinine Estim Creat Clear Calc Estimated GFR POC Glucose 172 H 184 H 256 H Random Glucose Calcium Total Bilirubin Direct Bilirubin AST ALT Alkaline Phosphatase Total Protein Albumin Urine Color Urine Appearance Urine pH Ur Specific [place] Urine Protein Urine Glucose (UA) Urine Ketones Urine Blood Urine Nitrite Ur Leukocyte Esterase Urine RBC Urine WBC Ur Squamous Epith Cells Urine Bacteria Hyaline Casts Urine Opiates Screen Ur Buprenorphine Scrn Ur Oxycodone Screen Urine Methadone Screen Urine Fentanyl Screen Ur Barbiturates Screen Ur Phencyclidine Scrn Ur Amphetamines Screen U Benzodiazepines Scrn Urine Cocaine Screen U Marijuana (THC) Screen Influenza Type A (PCR) Influenza Type B (PCR) RSV RNA Qual (PCR) SARS-CoV-2 RNA (RT-PCR) Mental Status Exam Mental Status Exam Narrative: Appearance: wearing hospital gown, fair hygiene, in NAD Behavior: initially guarded Psychomotor: no agitation or retardation noted Speech: clear, normal rate/rhythm/volume, spontaneous TP: linear TC: feeling overwhelmed, wanting help but also tired of being in the ED. Mood: upset Affect: congruent SI: passive HI: none VH/AH: none Delusions: none Insight/judgment: poor x 2. memory/cog: alert, oriented x 3. no formal assessment but would benefit from MOCA/ ACL Medications Medications Current Medications Albuterol Sulfate (Albuterol Sulfate (0.083%) 2.5 Mg/3 Ml Vial.Neb) 2.5 mg INHALE Q6H PRN PRN Reason: Shortness Of Breath Or Wheezing Aspirin (Aspirin Enteric Coated 81 Mg Tablet.) 81 mg PO DAILY [facility] Last Admin: 08/05/24 08:07 Dose: 81 mg Fluoxetine HCl (Fluoxetine Hcl 20 Mg Capsule) 40 mg PO DAILY [facility] Last Admin: 08/05/24 08:05 Dose: 40 mg Fluticasone/Umeclidinium/Vilanterol (Fluticasone/Umeclidinium/Vilanterol 200/62.5/25 Blst.W.Dev) 1 puff INHALE RDAILY [facility] Last Admin: 08/05/24 08:41 Dose: 1 puff Furosemide (Furosemide 20 Mg Tablet) 20 mg PO DAILY [facility]; Protocol Last Admin: 08/05/24 08:05 Dose: 20 mg Gabapentin (Gabapentin 600 Mg Tablet) 600 mg PO TID [facility] Last Admin: 08/05/24 08:07 Dose: 600 mg Insulin Glargine (Insulin Glargine,Hum.Rec.Anlog 100 Unit/Ml 10 Ml Vial) 31 unit SUBCUT DAILY [facility] Last Admin: 08/05/24 08:07 Dose: 31 unit Insulin Human Lispro (Insulin Lispro 100 Unit/Ml 3 Ml Vial) 0 unit SUBCUT QIDACHS [facility]; Protocol Last Admin: 08/05/24 13:33 Dose: 6 unit Isosorbide Mononitrate (Isosorbide Mononitrate 60 Mg Tab.Er.24h) 60 mg PO DAILY [facility]; Protocol Last Admin: 08/05/24 08:06 Dose: 60 mg Lorazepam (Lorazepam 0.5 Mg Tablet) 0.5 mg PO BID [facility] Last Admin: 08/05/24 08:06 Dose: 0.5 mg Metoprolol Succinate (Metoprolol Succinate Er 50 Mg Tab.Er.24h) 50 mg PO DAILY [facility]; Protocol Last Admin: 08/05/24 08:05 Dose: 50 mg Non-Formulary Medication (Dulaglutide [Trulicity]) 1.5 mg SUBCUT Q7D [facility] Oxycodone HCl (Oxycodone Hcl Immed Release 5 Mg Tablet) 10 mg PO 6XD [facility] Last Admin: 08/05/24 13:32 Dose: 10 mg Vitamin D (Cholecalciferol (Vitamin D3) 25 Mcg Tablet) 125 mcg PO MO [facility] Allergies Allergies Allergy/AdvReac Type Severity Reaction Status Date / Time divalproex sodium [Depakote] Allergy Unknown rash/hives Verified 08/03/24 15:21 morphine Allergy Unknown rash Verified 08/03/24 15:21 vancomycin Allergy Unknown resp sx Verified 08/03/24 15:21 Assessment & Plan Assessment & Plan (1) MDD (major depressive disorder), recurrent episode, moderate: Status: Acute Code(s): F33.1 - Major depressive disorder, recurrent, moderate Plan Ms. Velazquez is a 69 year-old woman with hx of MDD. She came on sect 12a due to reporting suicidal ideation in context of problems with sustainable products marketing manager. She denies plan or intent. She seems to be struggling in her apartment with frequent falls, unclear use or misuse of pain medications (could also be related to underlying cognitive impairments). She has agreed to wait for bedsearch. Total time managing care of this patient today ____ minutes.
[2024-08-05 16:07] VITALS: BP 124/73; PULSE 53; RESP 16; TEMP 37; O2SAT 96
[2024-08-05 18:23] LABS: Glucose, Whole Blood 240 mg/dL (60-115)
--- NOTE | 2024-08-05 20:00 | MHC.EDTECH ---
This tech took over care of pt at 1900,rounded and introduced self to pt,vitals taken,pt appears comfortable,sitter at bedside for safety
--- NOTE | 2024-08-05 20:12 | PC.NURSE ---
Report taken from Denae CABAN assumed care of pt at 1900. Pt A&Ox3 skin pwd respirations even unlabored. Calm and cooperative, offers no complaints at this time. Pt observer at bedside for safety. Safety maintained. IPBS continues, will continue to monitor.
[2024-08-05 20:33] LABS: Glucose, Whole Blood 194 mg/dL (60-115)
[2024-08-05 22:00] VITALS: RESP 16
--- NOTE | 2024-08-05 23:11 | PC.NURSE ---
Pt resting in bed eyes closed, NAD, skin pwd respirations even unlabored. IPBS continues, pt observer at bedside for safety, safety maintained.
[2024-08-06] VITALS (8 sets, daily range): BP systolic 103–147; BP diastolic 49–58; PULSE 51–60; RESP 16–18; TEMP 36.6–37.4; O2SAT 97–99
--- NOTE | 2024-08-06 03:20 | PC.NURSE ---
Pt continues to rest in bed skin pwd respirations even unlabored. Pt observer at bedside for safety, safety maintained. IPBS continues.
--- NOTE | 2024-08-06 05:48 | PC.NURSE ---
Pt resting in bed eyes closed, NAD. Pt observer remains at bedside for safety, safety maintained. IPBS continues.
[2024-08-06] MEDS: oxyCODONE HCl Immed Release 5 MG TABLET 10 MG PO ×5 (06:38→21:24)
[2024-08-06 07:18] LABS: Glucose, Whole Blood 161 mg/dL (60-115)
[2024-08-06] MEDS: Insulin Lispro 100 UNIT/ML 3 ML VIAL SUBCUT ×3 (07:50→21:25)
[2024-08-06] MEDS: Aspirin Enteric Coated 81 MG TABLET.DR PO (08:01)
[2024-08-06] MEDS: FLUoxetine HCl 20 MG CAPSULE 40 MG PO (08:01)
[2024-08-06] MEDS: Furosemide 20 MG TABLET PO (08:01)
[2024-08-06] MEDS: Isosorbide Mononitrate 60 MG TAB.ER.24H PO (08:02)
[2024-08-06] MEDS: Gabapentin 600 MG TABLET PO ×3 (08:02→21:24)
[2024-08-06] MEDS: Insulin Glargine,Hum.rec.anlog 100 UNIT/ML 10 ML VIAL 31 UNIT SUBCUT (08:02)
[2024-08-06] MEDS: Metoprolol Succinate ER 50 MG TAB.ER.24H PO (08:03)
[2024-08-06] MEDS: LORazepam 0.5 MG TABLET PO ×2 (08:03→21:24)
[2024-08-06] MEDS: Fluticasone/Umeclidinium/Vilanterol 200/62.5/25 BLST.W.DEV 1 PUFF INHALE (08:37)
[2024-08-06 12:57] LABS: Glucose, Whole Blood 321 mg/dL (60-115)
[2024-08-06 16:52] LABS: Glucose, Whole Blood 147 mg/dL (60-115)
[2024-08-06 21:21] LABS: Glucose, Whole Blood 193 mg/dL (60-115)
--- NOTE | 2024-08-06 21:34 | PC.NURSE ---
Pt a&ox4, no signs of distress. Pt reports 8/10 body pain Pt requested and assisted to restroom Pt medicated per mar Plan of care ongoing.
--- NOTE | 2024-08-06 22:13 | PC.NURSE ---
1800 Oxycodone not given by previous shift. This RN removed it from the board.
[2024-08-07 06:00] VITALS: BP 123/42; PULSE 53; RESP 16; TEMP 36.7; O2SAT 98
[2024-08-07] MEDS: oxyCODONE HCl Immed Release 5 MG TABLET 10 MG PO ×6 (06:06→20:54)
[2024-08-07 07:16] LABS: Glucose, Whole Blood 174 mg/dL (60-115)
[2024-08-07] MEDS: Insulin Lispro 100 UNIT/ML 3 ML VIAL SUBCUT (07:18)
[2024-08-07 09:54] VITALS: BP 115/49
[2024-08-07] MEDS: FLUoxetine HCl 20 MG CAPSULE 40 MG PO (09:54)
[2024-08-07] MEDS: Furosemide 20 MG TABLET PO (09:54)
[2024-08-07] MEDS: Aspirin Enteric Coated 81 MG TABLET.DR PO (09:54)
[2024-08-07 09:55] VITALS: BP 115/49; PULSE 61
[2024-08-07] MEDS: Gabapentin 600 MG TABLET PO ×3 (09:55→20:54)
[2024-08-07] MEDS: Isosorbide Mononitrate 60 MG TAB.ER.24H PO (09:55)
[2024-08-07] MEDS: LORazepam 0.5 MG TABLET PO ×2 (09:55→20:54)
[2024-08-07] MEDS: Metoprolol Succinate ER 50 MG TAB.ER.24H PO (09:55)
[2024-08-07] MEDS: Insulin Glargine,Hum.rec.anlog 100 UNIT/ML 10 ML VIAL 31 UNIT SUBCUT (09:57)
[2024-08-07 12:21] VITALS: BP 141/62; PULSE 55; RESP 16; TEMP 36.7; O2SAT 92
[2024-08-07 13:06] LABS: Glucose, Whole Blood 140 mg/dL (60-115)
[2024-08-07 15:38] VITALS: BP 131/52; PULSE 56; RESP 14; TEMP 36.8; O2SAT 97
--- NOTE | 2024-08-07 16:38 | PC.NURSE ---
Pt has been resting in bed today. No acute complaints. Calm and cooperative, took meds with no issues
[2024-08-07 18:23] LABS: Glucose, Whole Blood 139 mg/dL (60-115)
[2024-08-07] MEDS: Ondansetron ODT 4 MG TAB.RAPDIS TRANSLINGU ×2 (18:43→19:43)
--- NOTE | 2024-08-07 18:44 | PC.NURSE ---
Pt reported feelings of nausea, did have one episode of vomiting. Reporting upset stomach, no pain. Medicated per MAR and will continue to monitor.
[2024-08-07 19:47] VITALS: BP 126/57; PULSE 62; RESP 16; TEMP 36.7; O2SAT 96
--- NOTE | 2024-08-07 19:53 | PC.NURSE ---
another episode for vomiting, pt medication per MAR
[2024-08-07 19:58] LABS: MANUAL DIFF FLAG NO
[2024-08-07 19:59] LABS: Basophils Percent Auto 0.1 % (0-2); Eosinophils Absolute Auto 0.1 X10*3/uL (0.0-0.4); Eosinophils Percent Auto 0.9 % (0-4); Hematocrit 39.7 % (37.0-47.0); Hemoglobin 13.1 g/dl (12.0-16.0); Imm Gran Abs Auto 0.05 X10*3/uL (0.00-0.03); Imm Gran Pct Auto 0.4 % (0.0-0.4); Lymphocytes Absolute Auto 0.5 X10*3/uL (1.2-4.9); Lymphocytes Percent Auto 4.4 % (20-40); Mean Corpuscular Hemoglobin 30.1 pg (27.0-33.0); Mean Corpuscular Volume 91.3 fL (80.0-98.0); Mean Platelet Volume 10.7 fL (9.4-12.3); Monocytes Absolute Auto 0.5 X10*3/uL (0.1-1.2); Monocytes Percent Auto 4.7 % (2-11); Neutrophils Absolute Auto 10.3 x10*3/uL (2.0-8.3); Neutrophils Percent Auto 89.5 % (45-73); Platelet Count 157 X10*3/uL (160-400); Red Blood Count 4.35 X10*6/uL (4.20-5.50); Red Cell Distribution Width 12.8 % (11.0-16.0); White Blood Count 11.5 X10*3/uL (4.8-10.8)
[2024-08-07 20:18] LABS: Alanine Aminotransferase 17 U/L (0-31); Albumin Level 3.6 g/dL (3.5-5.0); Alkaline Phosphatase 134 U/L (39-117); Anion Gap 13 (12-20); Aspartate Amino Transferase 29 U/L (5-31); Bilirubin Total 0.4 mg/dL (0.0-1.0); Blood Urea Nitrogen 18 mg/dL (9-16); Calcium 8.8 mg/dL (8.4-10.2); Carbon Dioxide 33 mmol/L (22-29); Chloride 100 mmol/L (96-108); Creatinine Clr Calc Pharmacy 62.6; Estimated Glomerular Filt Rate > 60; Glucose Random 150 mg/dL (60-115); Potassium 4.5 mmol/L (3.3-5.1); Sodium 141 mmol/L (135-145); Total Protein 6.8 g/dL (6.5-8.0)
[2024-08-07 20:36] LABS: Influenza A PCR NEGATIVE (Negative); Influenza B PCR NEGATIVE (Negative); Resp Syncy Virus RNA Qual PCR NEGATIVE (Negative); SARS COV2 PCR INHOUSE NEGATIVE (Negative)
[2024-08-07] MEDS: diphenhydrAMINE HCL 50 MG/ML VIAL 12.5 MG IVPUSH (20:54)
[2024-08-07] MEDS: Metoclopramide HCl 10 MG/2 ML VIAL IVPUSH (20:54)
[2024-08-07] MEDS: 0.9 % Sodium Chloride 1,000 ML 999 ML IV (20:55)
--- NOTE | 2024-08-07 21:14 | PC.NURSE ---
pt ambulated to the bathroom with 1 assist, normal BM per pt. pt also vomited again. provider aware. 20g IV placed to RAC. medicated per SEP.
--- NOTE | 2024-08-07 22:06 | PC.NURSE ---
pt now resting comfortably with eyes closed, breathing even and unlabored. no apparent distress noted at this time. call shakila w/in reach
--- NOTE | 2024-08-07 23:30 | PC.NURSE ---
assist to bathroom, incont of urine, gown and pants changed. back in bed resting comfortably
--- NOTE | 2024-08-08 02:30 | PC.NURSE ---
pt incont of loose stool. assist with washing, bed changed and gown cleaned
[2024-08-08] MEDS: Loperamide HCl 2 MG CAPSULE 4 MG PO (02:46)
[2024-08-08 04:13] VITALS: BP 114/60; PULSE 71; RESP 16; TEMP 37.8; O2SAT 94
--- NOTE | 2024-08-08 04:14 | PC.NURSE ---
pt incont of loose watery stool again, assist with washing and cleaning. labs obtained
[2024-08-08 05:26] LABS: CDiff Gene PCR NEGATIVE (Negative)
[2024-08-08 08:13] VITALS: BP 125/50; PULSE 62; RESP 15; TEMP 37.1; O2SAT 97
[2024-08-08 09:44] VITALS: BP 137/50; PULSE 68; RESP 18; TEMP 37.5; O2SAT 97
[2024-08-08] MEDS: Isosorbide Mononitrate 60 MG TAB.ER.24H PO (09:45)
[2024-08-08] MEDS: Furosemide 20 MG TABLET PO (09:45)
[2024-08-08] MEDS: Insulin Glargine,Hum.rec.anlog 100 UNIT/ML 10 ML VIAL 31 UNIT SUBCUT (09:45)
[2024-08-08] MEDS: oxyCODONE HCl Immed Release 5 MG TABLET 10 MG PO ×5 (09:46→21:15)
[2024-08-08] MEDS: FLUoxetine HCl 20 MG CAPSULE 40 MG PO (09:46)
[2024-08-08] MEDS: Aspirin Enteric Coated 81 MG TABLET.DR PO (09:46)
[2024-08-08] MEDS: Metoprolol Succinate ER 50 MG TAB.ER.24H PO (09:46)
[2024-08-08] MEDS: Gabapentin 600 MG TABLET PO ×3 (09:46→21:16)
[2024-08-08] MEDS: LORazepam 0.5 MG TABLET PO ×2 (09:46→21:16)
--- NOTE | 2024-08-08 10:29 | PC.NURSE ---
patient stating she continues to have nausea/vomiting/diarrhea. reports this all began last night and has continued throughout the night. last episode of vomiting earlier this morning, has not vomited since. continues to ambulate to the bathroom with one assist. resting quietly in room with even and unlabored respirations. patient observer remains in place for patient safety.
--- NOTE | 2024-08-08 12:53 | P.CNPS_ITS ---
History of Present Illness Chief Complaint: SI THOUGHTS TO OD ON MEDS,SEC 12 PER EMS Diagnostics Vital Signs (24Hr): Vital Signs - 24 hr 08/07/24 15:38 08/07/24 19:47 08/08/24 04:13 Temperature 98.2 F 98.0 F 100.1 F Pulse Rate 56 62 71 Respiratory Rate 14 16 16 Blood Pressure 131/52 L 126/57 L 114/60 Pulse Oximetry 97 96 94 Oxygen Delivery Method Room Air Nasal Cannula Nasal Cannula Oxygen Flow Rate 2 2 3 08/08/24 08:13 08/08/24 09:44 Temperature 98.7 F 99.5 F Pulse Rate 62 68 Respiratory Rate 15 18 Blood Pressure 125/50 L 137/50 L Pulse Oximetry 97 97 Oxygen Delivery Method Nasal Cannula Nasal Cannula Oxygen Flow Rate 4 4 BMI result Body Mass Index 28.5 Labs 08/07/24 19:52 08/07/24 19:52 Labs: Laboratory Results - last 48 hr 08/06/24 08/06/24 08/06/24 12:53 16:48 21:17 WBC RBC Hgb Hct MCV MCH MCHC RDW Plt Count MPV Immature Gran % (Auto) Neut % (Auto) Lymph % (Auto) [place] % (Auto) Eos % (Auto) Baso % (Auto) Lymph # (Auto) [place] # (Auto) Eos # (Auto) Baso # (Auto) Abs Immat Gran (auto) Absolute Neuts (auto) Absolute Nucleated RBC Nucleated RBC % (auto) Sodium Potassium Chloride Carbon Dioxide Anion Gap BUN Creatinine Estim Creat Clear Calc Estimated GFR POC Glucose 321 H 147 H 193 H Random Glucose Calcium Total Bilirubin AST ALT Alkaline Phosphatase Total Protein Albumin C. difficile Tox B Gene Influenza Type A (PCR) Influenza Type B (PCR) RSV RNA Qual (PCR) SARS-CoV-2 RNA (RT-PCR) 08/07/24 08/07/24 08/07/24 07:11 13:01 18:18 WBC RBC Hgb Hct MCV MCH MCHC RDW Plt Count MPV Immature Gran % (Auto) Neut % (Auto) Lymph % (Auto) [place] % (Auto) Eos % (Auto) Baso % (Auto) Lymph # (Auto) [place] # (Auto) Eos # (Auto) Baso # (Auto) Abs Immat Gran (auto) Absolute Neuts (auto) Absolute Nucleated RBC Nucleated RBC % (auto) Sodium Potassium Chloride Carbon Dioxide Anion Gap BUN Creatinine Estim Creat Clear Calc Estimated GFR POC Glucose 174 H 140 H 139 H Random Glucose Calcium Total Bilirubin AST ALT Alkaline Phosphatase Total Protein Albumin C. difficile Tox B Gene Influenza Type A (PCR) Influenza Type B (PCR) RSV RNA Qual (PCR) SARS-CoV-2 RNA (RT-PCR) 08/07/24 08/08/24 19:52 04:16 WBC 11.5 H RBC 4.35 D Hgb 13.1 D Hct 39.7 MCV 91.3 MCH 30.1 MCHC 33.0 RDW 12.8 Plt Count 157 L MPV 10.7 Immature Gran % (Auto) 0.4 Neut % (Auto) 89.5 H Lymph % (Auto) 4.4 L [place] % (Auto) 4.7 Eos % (Auto) 0.9 Baso % (Auto) 0.1 Lymph # (Auto) 0.5 L [place] # (Auto) 0.5 Eos # (Auto) 0.1 Baso # (Auto) 0.0 Abs Immat Gran (auto) 0.05 H Absolute Neuts (auto) 10.3 H Absolute Nucleated RBC 0.000 Nucleated RBC % (auto) 0.0 Sodium 141 Potassium 4.5 Chloride 100 Carbon Dioxide 33 H Anion Gap 13 BUN 18 H Creatinine 0.82 Estim Creat Clear Calc 62.6 Estimated GFR > 60 POC Glucose Random Glucose 150 H Calcium 8.8 D Total Bilirubin 0.4 AST 29 ALT 17 Alkaline Phosphatase 134 H Total Protein 6.8 Albumin 3.6 C. difficile Tox B Gene NEGATIVE Influenza Type A (PCR) NEGATIVE Influenza Type B (PCR) NEGATIVE RSV RNA Qual (PCR) NEGATIVE SARS-CoV-2 RNA (RT-PCR) NEGATIVE Medications Medications Current Medications Albuterol Sulfate (Albuterol Sulfate (0.083%) 2.5 Mg/3 Ml Vial.Neb) 2.5 mg INHALE Q6H PRN PRN Reason: Shortness Of Breath Or Wheezing Aspirin (Aspirin Enteric Coated 81 Mg Tablet.) 81 mg PO DAILY [facility] Last Admin: 08/08/24 09:46 Dose: 81 mg Fluoxetine HCl (Fluoxetine Hcl 20 Mg Capsule) 40 mg PO DAILY [facility] Last Admin: 08/08/24 09:46 Dose: 40 mg Fluticasone/Umeclidinium/Vilanterol (Fluticasone/Umeclidinium/Vilanterol 200/62.5 Blst.W.Dev) 1 puff INHALE RDAILY [facility] Last Admin: 08/08/24 09:47 Dose: Not Given Furosemide (Furosemide 20 Mg Tablet) 20 mg PO DAILY [facility]; Protocol Last Admin: 08/08/24 09:45 Dose: 20 mg Gabapentin (Gabapentin 600 Mg Tablet) 600 mg PO TID [facility] Last Admin: 08/08/24 09:46 Dose: 600 mg Insulin Glargine (Insulin Glargine,Hum.Rec.Anlog 100 Unit/Ml 10 Ml Vial) 31 unit SUBCUT DAILY [facility] Last Admin: 08/08/24 09:45 Dose: 31 unit Insulin Human Lispro (Insulin Lispro 100 Unit/Ml 3 Ml Vial) 0 unit SUBCUT QIDACHS [facility]; Protocol Last Admin: 08/08/24 09:47 Dose: Not Given Isosorbide Mononitrate (Isosorbide Mononitrate 60 Mg Tab.Er.24h) 60 mg PO DAILY [facility]; Protocol Last Admin: 08/08/24 09:45 Dose: 60 mg Lorazepam (Lorazepam 0.5 Mg Tablet) 0.5 mg PO BID [facility] Last Admin: 08/08/24 09:46 Dose: 0.5 mg Metoprolol Succinate (Metoprolol Succinate Er 50 Mg Tab.Er.24h) 50 mg PO DAILY [facility]; Protocol Last Admin: 08/08/24 09:46 Dose: 50 mg Non-Formulary Medication (Dulaglutide [Trulicity]) 1.5 mg SUBCUT Q7D [facility] Oxycodone HCl (Oxycodone Hcl Immed Release 5 Mg Tablet) 10 mg PO 6XD [facility] Last Admin: 08/08/24 09:46 Dose: 10 mg Vitamin D (Cholecalciferol (Vitamin D3) 25 Mcg Tablet) 125 mcg PO MO [facility] Allergies Allergies Allergy/AdvReac Type Severity Reaction Status Date / Time divalproex sodium [Depakote] Allergy Unknown rash/hives Verified 08/03/24 15:21 morphine Allergy Unknown rash Verified 08/03/24 15:21 vancomycin Allergy Unknown resp sx Verified 08/03/24 15:21 Assessment & Plan Total time managing care of this patient today ____ minutes.
[2024-08-08 13:27] LABS: Adenovirus F 40/41 Not Detected (Not Detect.); Astrovirus Not Detected (Not Detect.); Campylobacter Not Detected (Not Detect.); Cryptosporidium Not Detected (Not Detect.); Cyclospora cayetanensis Not Detected (Not Detect.); E. coli EAEC Not Detected (Not Detect.); E. coli EPEC Not Detected (Not Detect.); E. coli ETEC Not Detected (Not Detect.); E. coli STEC Not Detected (Not Detect.); Entamoeba histolytica Not Detected (Not Detect.); Giardia lamblia Not Detected (Not Detect.); Plesiomonas shigelloides Not Detected (Not Detect.); Rotavirus A Not Detected (Not Detect.); Salmonella Not Detected (Not Detect.); Sapovirus Not Detected (Not Detect.); Shigella sp./EIEC Not Detected (Not Detect.); Vibrio Cholerae Not Detected (Not Detect.); Yersinia enterocolitica Not Detected (Not Detect.)
[2024-08-08 14:33] LABS: Vibrio Detected (Not Detect.)
[2024-08-08 14:53] VITALS: BP 132/57; PULSE 68; RESP 17; TEMP 37.1; O2SAT 97
[2024-08-08] MEDS: cefuroxime axetiL 250 MG TABLET PO (15:42)
[2024-08-08 15:45] VITALS: BP 100/58; PULSE 72; RESP 16; TEMP 36.9; O2SAT 96
[2024-08-08 18:51] LABS: Glucose, Whole Blood 126 mg/dL (60-115)
[2024-08-08 21:02] LABS: Glucose, Whole Blood 116 mg/dL (60-115)
[2024-08-08] MEDS: Doxycycline Monohydrate 100 MG CAPSULE PO (21:16)
[2024-08-09] VITALS (7 sets, daily range): BP systolic 109–148; BP diastolic 53–60; PULSE 55–65; RESP 16–18; TEMP 36.7–36.9; O2SAT 96–100
--- NOTE | 2024-08-09 00:23 | MHC.EDTECH ---
This tech took over care of pt at 2300,rounded and introduced self to pt,vitals taken,patient appears comfortable,sitter at bedside for safety,call jhaveri in reach
[2024-08-09] MEDS: oxyCODONE HCl Immed Release 5 MG TABLET 10 MG PO ×3 (02:46→14:55)
[2024-08-09] MEDS: Fluticasone/Umeclidinium/Vilanterol 200/62.5/25 BLST.W.DEV 1 PUFF INHALE (08:01)
[2024-08-09 08:02] LABS: Glucose, Whole Blood 109 mg/dL (60-115)
[2024-08-09] MEDS: Metoprolol Succinate ER 50 MG TAB.ER.24H PO (08:58)
[2024-08-09] MEDS: Doxycycline Monohydrate 100 MG CAPSULE PO (08:59)
[2024-08-09] MEDS: FLUoxetine HCl 20 MG CAPSULE 40 MG PO (08:59)
[2024-08-09] MEDS: Aspirin Enteric Coated 81 MG TABLET.DR PO (08:59)
[2024-08-09] MEDS: Gabapentin 600 MG TABLET PO ×2 (08:59→14:55)
[2024-08-09] MEDS: Isosorbide Mononitrate 60 MG TAB.ER.24H PO (08:59)
[2024-08-09] MEDS: Furosemide 20 MG TABLET PO (09:00)
--- NOTE | 2024-08-09 10:25 | PC.NURSE ---
trulicity ordered retroactively to start 08/03 (5 days ago). charted against. pt was not here
--- NOTE | 2024-08-09 10:46 | PC.NURSE ---
pt reports ongoing diarrhea. commode emptied - a small amount of liquid stool noted. pt says she is nausesous but primaraly her back is in pain and she is requesting her prn oxycodone. dr. enriquez notified of pt presentation and repeat labwork ordered
--- NOTE | 2024-08-09 12:40 | MHC.EDTECH ---
This tech attempted to obtain bloodwork from patient. Venipuncture unsuccessful. RN aware
[2024-08-09 12:49] LABS: MANUAL DIFF FLAG NO
[2024-08-09 12:53] LABS: Basophils Percent Auto 0.2 % (0-2); Eosinophils Percent Auto 0.4 % (0-4); Hematocrit 41.4 % (37.0-47.0); Hemoglobin 13.6 g/dl (12.0-16.0); Imm Gran Abs Auto 0.05 X10*3/uL (0.00-0.03); Imm Gran Pct Auto 0.9 % (0.0-0.4); Lymphocytes Absolute Auto 0.7 X10*3/uL (1.2-4.9); Lymphocytes Percent Auto 12.8 % (20-40); Mean Corpuscular HGB Conc 32.9 g/dl (31.0-35.0); Mean Corpuscular Volume 91.4 fL (80.0-98.0); Mean Platelet Volume 10.4 fL (9.4-12.3); Monocytes Absolute Auto 0.5 X10*3/uL (0.1-1.2); Monocytes Percent Auto 9.1 % (2-11); Neutrophils Absolute Auto 4.3 x10*3/uL (2.0-8.3); Neutrophils Percent Auto 76.6 % (45-73); Platelet Count 127 X10*3/uL (160-400); Red Blood Count 4.53 X10*6/uL (4.20-5.50); Red Cell Distribution Width 13.1 % (11.0-16.0); White Blood Count 5.6 X10*3/uL (4.8-10.8)
[2024-08-09 13:06] LABS: Alanine Aminotransferase 10 U/L (0-31); Albumin Level 3.2 g/dL (3.5-5.0); Alkaline Phosphatase 98 U/L (39-117); Anion Gap 11 (12-20); Aspartate Amino Transferase 28 U/L (5-31); Bilirubin Direct 0.1 mg/dL (0.0-0.5); Bilirubin Total 0.3 mg/dL (0.0-1.0); Blood Urea Nitrogen 25 mg/dL (9-16); C Reactive Protein 0.85 mg/dL (< or = 0.50); Carbon Dioxide 30 mmol/L (22-29); Chloride 101 mmol/L (96-108); Creatinine Clr Calc Pharmacy 63.3; Estimated Glomerular Filt Rate > 60; Glucose Random 155 mg/dL (60-115); Magnesium 1.7 mg/dL (1.6-2.6); Potassium 3.9 mmol/L (3.3-5.1); Sodium 138 mmol/L (135-145); Total Protein 6.1 g/dL (6.5-8.0)
[2024-08-09 13:38] LABS: Glucose, Whole Blood 149 mg/dL (60-115)
[2024-08-09] MEDS: 0.9 % Sodium Chloride 1,000 ML 999 ML IV (15:45)
[2024-08-09 17:05] LABS: Glucose, Whole Blood 151 mg/dL (60-115)
--- NOTE | 2024-08-09 17:24 | MHC.CARE ---
Patient reassessed by the CARE Team, disposition no longer inpatient psychiatric admission and she will discharge home via EMS tonight. Multiple unsuccessful attempts were made to contact providers and the facility for this update. Patient said she is confident she can settle herself in tonight and does not want to wait until morning, noted there is an overnight staff person who is available at the apartment complex if she has urgent needs tonight. Family is aware that patient is not staying for inpatient psychiatric treatment, message also left for sister/HCP.
[2024-08-09] MEDS: Insulin Lispro 100 UNIT/ML 3 ML VIAL SUBCUT (18:09)
[2024-08-11 08:42] LABS: Norovirus Stool PCR DETECTED
== END 2024-08-09 19:24 | disposition home or self-care (01) ==
PROVIDERS: Emergency Medicine Emergency Medical Services; Registered Nurse Emergency; Emergency Provider Emergency Medicine
DX: F33.1 Major depressive disorder, recurrent, moderate (principal); R45.851 Suicidal ideations; A05.3 Foodborne Vibrio parahaemolyticus intoxication; A08.11 Acute gastroenteropathy due to Norwalk agent; R19.7 Diarrhea, unspecified; R11.2 Nausea with vomiting, unspecified; D72.829 Elevated white blood cell count, unspecified; J44.9 Chronic obstructive pulmonary disease, unspecified; Z99.81 Dependence on supplemental oxygen; Z79.899 Other long term (current) drug therapy; Z79.02 Long term (current) use of antithrombotics/antiplatelets; Z79.85 Long-term (current) use of injectable non-insulin antidiabetic drugs; Z79.4 Long term (current) use of insulin; Z03.818 Encounter for observation for suspected exposure to other biological agents ruled out
CPT/HCPCS: 0241U; 36415; 80048; 80053; 80076; 80307; 81001; 82947; 83735; 85025; 86140; 87493; 87507; 93005; 94640; 96361; 96374; 96375; 99285; J1200; J2765; S9485

== ENCOUNTER → 2024-08-03 15:41 | Outpatient (BNV) | payer OTHER, SELFPAY | PROVIDERS: Emergency Provider Emergency Medicine; Visit Provider Social Worker | DX: F33.1 Major depressive disorder, recurrent, moderate (principal) | CPT/HCPCS: 99285 ==

== ENCOUNTER 2025-01-18 10:15 | Outpatient (RCR) | payer OTHER, SELFPAY | END 2025-01-18 16:15 | disposition home or self-care (01) | LOC: HO.WCC 10:15 | PROVIDERS: Visit Provider Surgery Surgical Oncology | DX: E11.621 Type 2 diabetes mellitus with foot ulcer (principal); L97.522 Non-pressure chronic ulcer of other part of left foot with fat layer exposed; F17.210 Nicotine dependence, cigarettes, uncomplicated; L84 Corns and callosities; Z79.4 Long term (current) use of insulin; Z79.899 Other long term (current) drug therapy | CPT/HCPCS: 11042; 97597; 99212; 99213 ==

== ENCOUNTER 2025-05-27 12:35 | Inpatient (IN) | payer OTHER, SELFPAY ==
--- NOTE | ~2025-05-27 | CT_ITS ---
EXAMINATION: CT HEAD WITHOUT CONTRAST (STROKE PROTOCOL) CLINICAL INFORMATION: Stroke protocol. COMPARISON: None available. TECHNIQUE: Contiguous axial imaging was performed from the skull base to vertex without intravenous administration of contrast. This CT examination was performed using dose optimization techniques as appropriate, variously including the following: *Automated exposure control *Adjustment of mA and/or kV according to patient size (this includes techniques or standardized protocols for targeted exams where dose is matched to indication/reason for exam; i.e. extremities or head) *Use of iterative reconstruction technique FINDINGS: There is no evidence of intracranial hemorrhage or extra-axial fluid collection. There is no mass effect, or edema. No CT evidence of acute territorial infarct. Ventricles, sulci, and cisterns are normal in size and configuration for patient age. No hydrocephalus. No midline shift. Negative hyperdense MCA sign. Negative insular ribbon sign. Patchy periventricular and deep white matter hypoattenuation is consistent with very mild small vessel ischemic changes. Partial empty sella. Mild atheromatous calcification of the bilateral carotid siphons. Globes and orbital contents image normally. No extracranial soft tissue abnormalities. The paranasal sinuses, mastoid air cells, and tympanic cavities are normally aerated. No suspicious bony abnormalities. There are no acute fractures evident. CT/CT head for STROKE IMPRESSION: No acute intracranial abnormality. No CT evidence of acute territorial infarct. This critical result was relayed to Monique Muse NP via secure text at 12:50 PM, 05/30/2025. Electronically signed by: Shiraz Zuniga MD 05/30/2025 12:54 PM [facility]
[2025-05-27 12:41] LABS: Glucose, Whole Blood 220 mg/dL (60-115)
[2025-05-27 12:51] VITALS: BP 166/82; PULSE 83; O2SAT 97
[2025-05-27 12:55] VITALS: BP 198/80; PULSE 80; RESP 18; TEMP 36.4; O2SAT 100; BMI 30.6
--- NOTE | 2025-05-27 13:11 | ED.PSYCH ---
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 Gran (auto) (0.00-0.03) X10*3/uL Absolute Neuts (auto) (2.0-8.3) x10*3/uL Absolute Nucleated RBC (0.0-0.012) X10*3/uL Nucleated RBC % (auto) (0.0-0.2) /100WBC ESR (0-20) MM/HR Sodium (135-145) mmol/L Potassium (3.3-5.1) mmol/L Chloride (96-108) mmol/L Carbon Dioxide (22-29) mmol/L Anion Gap (12-20) BUN (9-16) mg/dL Creatinine (0.5-1.4) mg/dL Estim Creat Clear Calc Estimated GFR POC Glucose 187 H (60-115) mg/dL Random Glucose (60-115) mg/dL Calcium (8.4-10.2) mg/dL Magnesium (1.6-2.6) mg/dL Total Bilirubin (0.0-1.0) mg/dL AST (5-31) U/L ALT (0-31) U/L Alkaline Phosphatase (39-117) U/L C-Reactive Protein (< or = 0.50) mg/dL Total Protein (6.5-8.0) g/dL Albumin (3.5-5.0) g/dL Hold Red Top Urine Opiates Screen (Not Detect) Ur Buprenorphine Scrn (Not Detect) ng/mL Ur Oxycodone Screen (Not Detect) ng/mL Urine Methadone Screen (Not Detect) ng/mL Urine Fentanyl Screen (Not Detect) Ur Barbiturates Screen (Not Detect) Ur Phencyclidine Scrn (Not Detect) Ur Amphetamines Screen (Not Detect) U Benzodiazepines Scrn (Not Detect) Urine Cocaine Screen (Not Detect) U Marijuana (THC) Screen (Not Detect) Ethyl Alcohol mg/dL Independent Interpretation I performed an independent interpretation of an: EKG Interpretation: I personally interpreted the EKG which reveals normal sinus rhythm without ST-elevation/depression, T-wave abnormality, lengthened QT Vent. Rate : 75 BPM Atrial Rate : 75 BPM P-R Int : 208 ms QRS Dur : 88 ms QT Int : 392 ms P-R-T Axes : 77 54 87 degrees QTcB Int : 437 ms Normal sinus rhythm Normal ECG When compared with ECG of 04-Aug-2024 10:17, No significant change was found External Record Review External record reviewed: Inpatient record, Office record and Outpatient record Chronic Conditions Patient?s care impacted by: Diabetes and Hypertension Discharge Plan Discharge Clinical Impression: Suicidal ideation, Depression Patient Disposition: Admitted As Inpatient Discharge Date/Time: 05/30/25 11:49
--- NOTE | 2025-05-27 13:12 | ECG_ITS ---
Test Reason : CHECK QT Blood Pressure : */* mmHG Vent. Rate : 75 BPM Atrial Rate : 75 BPM P-R Int : 208 ms QRS Dur : 88 ms QT Int : 392 ms P-R-T Axes : 77 54 87 degrees QTcB Int : 437 ms Normal sinus rhythm Normal ECG When compared with ECG of 04-Aug-2024 10:17, No significant change was found Referred By: Rosas Carlson Electronically Signed By: KORTNEY RIVERS
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
--- NOTE | 2025-05-27 13:44 | PC.NURSE ---
sitter at bedside as per facility protocol. belongings stored in [facility].
[2025-05-27 14:01] LABS: MANUAL DIFF FLAG NO
[2025-05-27 14:11] LABS: Hematocrit 42.0 % (37.0-47.0); Hemoglobin 13.6 g/dl (12.0-16.0); Imm Gran Abs Auto 0.06 X10*3/uL (0.00-0.03); Imm Gran Pct Auto 0.6 % (0.0-0.4); Lymphocytes Absolute Auto 2.0 X10*3/uL (1.2-4.9); Mean Corpuscular HGB Conc 32.4 g/dl (31.0-35.0); Mean Corpuscular Hemoglobin 29.7 pg (27.0-33.0); Mean Corpuscular Volume 91.7 fL (80.0-98.0); NRBC Abs Auto 0.000 X10*3/uL (0.0-0.012); NRBC Pct Auto 0.0 /100WBC (0.0-0.2); Platelet Count 126 X10*3/uL (160-400); Red Blood Count 4.58 X10*6/uL (4.20-5.50); White Blood Count 10.8 X10*3/uL (4.8-10.8)
[2025-05-27 14:27] LABS: Alanine Aminotransferase 19 U/L (0-31); Albumin Level 3.9 g/dL (3.5-5.0); Alkaline Phosphatase 112 U/L (39-117); Anion Gap 12 (12-20); Aspartate Amino Transferase 26 U/L (5-31); Blood Urea Nitrogen 13 mg/dL (9-16); Calcium 9.0 mg/dL (8.4-10.2); Carbon Dioxide 28 mmol/L (22-29); Chloride 107 mmol/L (96-108); Creatinine Clr Calc Pharmacy 62.3; Estimated Glomerular Filt Rate > 60; Magnesium 2.0 mg/dL (1.6-2.6); Potassium 4.1 mmol/L (3.3-5.1); Sodium 143 mmol/L (135-145); Total Protein 6.7 g/dL (6.5-8.0)
[2025-05-27 14:32] VITALS: BP 190/67; PULSE 86; RESP 20; TEMP 36.6; O2SAT 100
[2025-05-27 15:03] LABS: Cannabinoid Screen Urine POSITIVE (Not Detect)
[2025-05-27 16:56] LABS: Erythrocyte Sedimentation Rate 13 MM/HR (0-20)
[2025-05-27] MEDS: Aspirin Enteric Coated 81 MG TABLET.DR PO (18:24)
[2025-05-27 18:25] VITALS: BP 176/75; PULSE 93; RESP 16; O2SAT 93
[2025-05-27] MEDS: Metoprolol Succinate ER 50 MG TAB.ER.24H PO (18:25)
--- NOTE | 2025-05-27 19:05 | PHA.MEDREC ---
Pharmacy Consult ? Medication Reconciliation Pharmacy has reviewed the medication reconciliation done by nursing and also called [facility] [phone] Lexy Valentine in regards to patient's medications and doses. Dr. Valentine confirmed patient's medication list and directions. Tresiba 40 units daily, novolog tid per sliding scale, levothyroxine 150 mcg daily, clopidogrel 75 mg daily, gabapentin 600 mg tid, oxycontin 10 mg + 15 mg bid.
--- NOTE | 2025-05-27 19:23 | PC.NURSE ---
Called pharmacy regarding oxycodone 10mg that is not verified and Isosorbide med that is not available in the pyxis. Pharmacy states speaking with pts provider and that pt currently takes Oxycontin 25mg PO BID. Pharmacy will also bring isosorbide to the ED for this pt. Provider made aware and orders placed in [facility].
[2025-05-27 20:07] VITALS: BP 170/83
[2025-05-27 20:20] LABS: Glucose, Whole Blood 282 mg/dL (60-115)
[2025-05-27 21:01] VITALS: BP 153/74; PULSE 77; RESP 18; TEMP 36.7; O2SAT 100
[2025-05-27] MEDS: oxyCODONE HCl ER 10 MG TAB.ER.12H 20 MG PO (21:03)
[2025-05-28] VITALS (9 sets, daily range): BP systolic 108–153; BP diastolic 61–83; PULSE 68–74; RESP 13–18; TEMP 36.4–36.7; O2SAT 98–100
[2025-05-28] MEDS: oxyCODONE HCl ER 10 MG TAB.ER.12H 20 MG PO ×2 (08:17→21:03)
[2025-05-28] MEDS: Aspirin Enteric Coated 81 MG TABLET.DR PO (08:18)
[2025-05-28] MEDS: Insulin Glargine,Hum.rec.anlog 100 UNIT/ML 10 ML VIAL 28 UNIT SUBCUT (08:18)
[2025-05-28 08:28] LABS: Glucose, Whole Blood 224 mg/dL (60-115)
[2025-05-28 17:27] LABS: Glucose, Whole Blood 220 mg/dL (60-115)
--- NOTE | 2025-05-28 19:52 | PC.NURSE ---
this RN assumed care of this pt @1900, pt noted to be sitting upright, eyes closed, respirations even and unlabored, on 3L via NC, no apparent distress noted
[2025-05-28 20:49] LABS: Glucose, Whole Blood 270 mg/dL (60-115)
[2025-05-28] MEDS: Metoprolol Succinate ER 50 MG TAB.ER.24H PO (21:00)
[2025-05-29 06:00] VITALS: BP 108/66; PULSE 81; RESP 18; TEMP 36.8; O2SAT 98
[2025-05-29 08:37] VITALS: BP 112/78; PULSE 95; RESP 20; TEMP 37; O2SAT 100
[2025-05-29 08:38] VITALS: BP 112/78
[2025-05-29] MEDS: oxyCODONE HCl ER 10 MG TAB.ER.12H 20 MG PO ×2 (08:38→20:58)
[2025-05-29] MEDS: Insulin Glargine,Hum.rec.anlog 100 UNIT/ML 10 ML VIAL 28 UNIT SUBCUT (08:39)
[2025-05-29] MEDS: Aspirin Enteric Coated 81 MG TABLET.DR PO (08:39)
[2025-05-29 08:48] LABS: Glucose, Whole Blood 258 mg/dL (60-115)
--- NOTE | 2025-05-29 10:54 | PC.NURSE ---
patient placed into hospital bed for comfort, patient was able to stand and pivot 2 assist.
[2025-05-29 11:35] LABS: Glucose, Whole Blood 255 mg/dL (60-115)
[2025-05-29] MEDS: oxyCODONE HCl Immed Release 5 MG TABLET PO (13:43)
--- NOTE | 2025-05-29 14:08 | MHC.EDTECH ---
Patient washed up and bed changed
[2025-05-29 14:33] LABS: Glucose, Whole Blood 226 mg/dL (60-115)
[2025-05-29 16:22] VITALS: BP 126/56; PULSE 82; RESP 16; TEMP 36.6; O2SAT 94
[2025-05-29 20:59] VITALS: BP 117/34; PULSE 70
[2025-05-29] MEDS: Metoprolol Succinate ER 50 MG TAB.ER.24H PO (20:59)
--- NOTE | 2025-05-29 21:21 | HO.NURTONUR ---
RN had to put pts pills in her mouth one by one as she refused to take them by herself. pt was able to swallow her pills with water. One of her pills is not available in the [facility]- sent request to pharmacy via [facility].
[2025-05-29 21:22] LABS: Glucose, Whole Blood 169 mg/dL (60-115)
[2025-05-29 22:29] VITALS: BP 122/44; PULSE 70; RESP 18; O2SAT 100
[2025-05-30 08:15] LABS: Glucose, Whole Blood 187 mg/dL (60-115)
--- NOTE | 2025-05-30 08:26 | PC.NURSE ---
pt refused all morning medications. encouraged to take medications and pt continued to refuse. pt also did not want to eat breakfast. will continue to monitor. medications and insulin held at this time. pt denies pain
--- NOTE | 2025-05-30 08:30 | PC.NURSE ---
attempted to give pt medications by assisting her with taking them but pt continues to refuse
[2025-05-30 08:49] VITALS: BP 123/46; PULSE 78; RESP 14; TEMP 36.5; O2SAT 100
[2025-05-30 11:12] VITALS: PULSE 72; RESP 16; O2SAT 96
[2025-05-30 11:40] VITALS: BP 100/52; PULSE 76; RESP 18; TEMP 36.6; O2SAT 96
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
[2025-05-30 12:25] VITALS: BP 101/53; PULSE 80; RESP 16; TEMP 36.8; O2SAT 95
[2025-05-30 12:32] LABS: Glucose, Whole Blood 197 mg/dL (60-115)
--- NOTE | 2025-05-30 13:03 | MHC.STROKE ---
Rapid response stroke called for sudden onset weakness noticed while doing the patient's admission intake on the unit. Upon arrival to unit, hospitalist performing initial assessment. No focal deficits noted on exam. Pt answering questions appropriately. Pt is new to the unit so nursing staff unsure of baseline however weakness was not reported during their nurse to nurse from the ED. BP 101/53 and patient was not hypoglycemic. Pt taken to CT scan with this RN and unit RN. Explained to patient the Stroke protocol process. Pt agreeable to plan and cooperative with care. Stroke Education provided. Images reviewed by Dr. Seymour. He will evaluate patient. TNK is not indicated at this time. Pt passed nursing swallow screen however was noted to drop cup after drinking from it. Dr. Seymour aware.
[2025-05-30 14:22] LABS: Hematocrit 41.3 % (37.0-47.0); Hemoglobin 13.0 g/dl (12.0-16.0); Imm Gran Abs Auto 0.07 X10*3/uL (0.00-0.03); Imm Gran Pct Auto 0.6 % (0.0-0.4); Lymphocytes Absolute Auto 2.1 X10*3/uL (1.2-4.9); MANUAL DIFF FLAG SCAN; Mean Corpuscular HGB Conc 31.5 g/dl (31.0-35.0); Mean Corpuscular Hemoglobin 30.2 pg (27.0-33.0); Mean Corpuscular Volume 96.0 fL (80.0-98.0); NRBC Abs Auto 0.000 X10*3/uL (0.0-0.012); NRBC Pct Auto 0.0 /100WBC (0.0-0.2); PLT CLUMP 1; Red Blood Count 4.30 X10*6/uL (4.20-5.50); SCAN SMEAR FLAG 1
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
[2025-05-30 14:36] LABS: Alanine Aminotransferase 21 U/L (0-31); Albumin Level 3.8 g/dL (3.5-5.0); Alkaline Phosphatase 99 U/L (39-117); Anion Gap 11 (12-20); Aspartate Amino Transferase 83 U/L (5-31); Blood Urea Nitrogen 31 mg/dL (9-16); Calcium 9.3 mg/dL (8.4-10.2); Carbon Dioxide 33 mmol/L (22-29); Chloride 100 mmol/L (96-108); Magnesium 2.0 mg/dL (1.6-2.6); Potassium 5.3 mmol/L (3.3-5.1); Sodium 139 mmol/L (135-145); Total Protein 6.6 g/dL (6.5-8.0)
[2025-05-30 14:40] LABS: Platelet Count 114 X10*3/uL (160-400); White Blood Count 12.1 X10*3/uL (4.8-10.8)
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
--- NOTE | 2025-05-30 15:00 | MHC.SL.SWA ---
Speech Pathologist Impression: Mild to moderate oral phase and mild pharyngeal phase dysphagia Risk of Aspiration Due to: Weakness Dysphasia Diet Status: Recc NDD1 (PUREED) diet with THIN liquids, aspiration precautions, 1:1 feeding (assist pt in holding cup, container, untensils), straws ok, meds in puree Liquid Consistency and Strategies for Safe Swallow: Liquid Intake Recommendation: Thin Liquid Intake Strategies: Solid Food Consistency: Dietary Recommendations: Pureed (NDD1) Additional Modifications to Solid Foods: Oral Medication Intake: Whole with Puree Please contact the pharmacy regarding appropriate crushable or liquid drug formulations that are available whenever modified delivery is recommended. Compensatory Strategies and Precautions to be Taken for Safe Swallow: Supervision While Eating and Drinking for Safe Swallow: Total Assistance (1:1) Foods to Avoid: Swallowing Recommended Treatments: Recommendation for Speech: Inpatient Speech Therapy Comment: 05/30/25: Pt presents with moderate oral and mild pharyngeal phase dysphagia characterized by weak lingual movement and mild delay in anterior to posterior transit of bolus (purees and thins). Pt is edentulous, no solids trialed as OT reported pt unable to chew solids. Pt speech production moderately dysarthric, voice harsh but absent of wetness. Pt able to elicit volitional throat clear/re-swallow, and manages secretions without difficulty. BEHAVIORAL THERAPIST described reason for evaluation and recommendations with pt in simple terms, pt verbalized understanding and expressed humor in conveying she used to be able to 'do these things'. Pt in agreement with 1:1 assist during PO as she is unable to hold cup, container or utensils. Straws ok, meds in puree. MD and RN notified of recc, BEHAVIORAL THERAPIST to follow. Frequency/Duration: M-F daily Date Range for Service Req: Timeline to reassess: Policeman Clinican/Clinical Fellow: No Supervisory Statement: I have reviewed and agree with the student/clinical fellow's documentation: N/A Speech Language Pathologist: Hayde More M.S., [facility]-BEHAVIORAL THERAPIST
[2025-05-30 15:53] LABS: Appearance Urine Clear; Glucose Urine UA 100 mg/dL (Negative); PH 5.0 (5.0-9.0); Specific Gravity - Urine 1.020 (1.005-1.025); UMIC TRIGGER UA YES
[2025-05-30 16:03] LABS: Creatinine Clr Calc Pharmacy 33.3; Estimated Glomerular Filt Rate 32
[2025-05-30 16:10] LABS: Glucose, Whole Blood 250 mg/dL (60-115)
[2025-05-30 20:00] VITALS: BP 113/56; PULSE 83; RESP 18; TEMP 36.5; O2SAT 97
[2025-05-30 20:16] LABS: Glucose, Whole Blood 333 mg/dL (60-115)
[2025-05-30] MEDS: Metoprolol Succinate ER 50 MG TAB.ER.24H PO (20:56)
[2025-05-31 06:36] LABS: Glucose, Whole Blood 246 mg/dL (60-115)
[2025-05-31 08:00] VITALS: BP 109/65; PULSE 84; RESP 18; TEMP 36.4; O2SAT 97
[2025-05-31] MEDS: Insulin Glargine,Hum.rec.anlog 100 UNIT/ML 10 ML VIAL 28 UNIT SUBCUT (08:45)
[2025-05-31] MEDS: Aspirin Enteric Coated 81 MG TABLET.DR PO (08:46)
[2025-05-31 08:50] LABS: Alanine Aminotransferase 18 U/L (0-31); Albumin Level 3.1 g/dL (3.5-5.0); Alkaline Phosphatase 88 U/L (39-117); Anion Gap 11 (12-20); Aspartate Amino Transferase 66 U/L (5-31); Blood Urea Nitrogen 45 mg/dL (9-16); Calcium 8.9 mg/dL (8.4-10.2); Carbon Dioxide 29 mmol/L (22-29); Chloride 103 mmol/L (96-108); Cholesterol 94 mg/dL (<200); Creatinine Clr Calc Pharmacy 29.7; Estimated Glomerular Filt Rate 28; HDL Cholesterol 44 mg/dL (>40); Potassium 5.1 mmol/L (3.3-5.1); Sodium 138 mmol/L (135-145); Total Protein 5.7 g/dL (6.5-8.0); Triglycerides 82 mg/dL (<150)
--- NOTE | 2025-05-31 09:06 | P.PNIM_ITS ---
Subjective Subjective Date of Service: 05/31/25 Interval History: Follow up stroke-like symptoms. Patient seen and examined, she is alert, answering questions, speech is clear, moving all of her extremities, denies any shortness of breath, dizziness lightheadedness or any other concerning symptoms. Discussed with nursing no acute concerns. Her blood pressure is well controlled. No apparent distress. Patient with some mild dysarthria, question her baseline given edentulous status. Diet recently upgraded. 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 Patient has a healing ulcer on her right outer foot. Patient noted to have elevated CPK, ARRON on today's labs. Review of Systems Denies any shortness of breath, chest pain, headaches, dysuria, abdominal pain or discomfort, nausea, vomiting or diarrhea. Denies chills. Physical Exam 2 Exam: Exam: Alert and oriented X1, calm and cooperative. Answers questions. Neuro: CN II-X11 intact, no deficits, visual acuity intact. Speech clear. Cardiac: S1 S2 RRR, No ectopy Pulmonary: lungs clear to auscultation, No increased WOB. Abdominal: BS active in all 4 quadrants, no guarding or tenderness. Obese abdomen MSK: Strength 5/5 upper and lower extremities. Moves all extremities : Deferred Extremities: No edema in lower extremities Psych: Mood stable, Quiet and cooperative. Skin: Warm and dry, Intact Vital Signs: Vital Signs: Last Vital Signs Temp 97.7 F 05/30/25 20:00 Pulse 83 05/30/25 20:00 Resp 18 05/30/25 20:00 BP 113/56 L 05/30/25 20:00 Pulse Ox 97 05/30/25 20:00 O2 Del Method Nasal Cannula 05/30/25 20:00 O2 Flow Rate 2 05/30/25 12:25 Oxygen Flow Rate 3 05/27/25 12:55 BMI result Body Mass Index 30.6 Objective Data Active Medications Acetaminophen (Acetaminophen 325 Mg Tablet) 650 mg PO Q6H PRN PRN Reason: Headache/Pain, Scale 1-10 Al Hydroxide/Mg Hydroxide (Magnesium Hydrox/Alum Hydrox 30 Ml Oral.Susp) 30 ml PO Q6H PRN PRN Reason: Heartburn/Nausea Albuterol/Ipratropium (Albuterol/Iprat 2.5/0.5mg 3 Ml Ampul.Neb) 3 ml INHALE Q6H PRN PRN Reason: Shortness of Breath/Wheezing Aspirin (Aspirin Enteric Coated 81 Mg Tablet.) 81 mg PO DAILY [facility] Last Admin: 05/31/25 08:46 Dose: 81 mg Documented By: EMILIE Atorvastatin Calcium (Atorvastatin Calcium 80 Mg Tablet) 80 mg PO DAILY [facility] Last Admin: 05/31/25 08:47 Dose: 80 mg Documented By: EMILIE Clonazepam (Clonazepam 0.5 Mg Tablet) 0.5 mg PO BID [facility] Last Admin: 05/31/25 08:47 Dose: 0.5 mg Documented By: EMILIE Clopidogrel Bisulfate (Clopidogrel Bisulfate 75 Mg Tablet) 75 mg PO DAILY [facility] Last Admin: 05/31/25 08:47 Dose: 75 mg Documented By: EMILIE Collagenase (Collagenase Clostridium Hist. 30 Gm Tube) 1 appl TOPICAL DAILY [facility] Last Admin: 05/30/25 08:31 Dose: Not Given Documented By: DOMINGO Non-Admin Reason: Patient Refused Fluticasone/Umeclidinium/Vilanterol (Fluticasone/Umeclidinium/Vilanterol 100/62.5/25 Blst.W.Dev) 1 puff INHALE RDAILY [facility] Last Admin: 05/30/25 08:27 Dose: Not Given Documented By: DOMINGO Non-Admin Reason: Patient Refused Fluvoxamine Maleate (Fluvoxamine Maleate 50 Mg Tablet) 75 mg PO BEDTIME [facility] Last Admin: 05/30/25 20:56 Dose: 75 mg Documented By: KERRIE Furosemide (Furosemide 40 Mg Tablet) 40 mg PO DAILY [facility] Last Admin: 05/31/25 08:47 Dose: 40 mg Documented By: EMILIE Gabapentin (Gabapentin 600 Mg Tablet) 600 mg PO TID [facility] Last Admin: 05/31/25 08:47 Dose: 600 mg Documented By: EMILIE Glucose (Glucose Gel 15 Gm Gel..Gram.) 15 gm PO Q15M PRN; Protocol PRN Reason: per Hypoglycemia Standing Ord. Hydroxyzine HCl (Hydroxyzine Hcl 25 Mg Tablet) 25 mg PO Q6H PRN PRN Reason: mild anxiety Insulin Glargine (Insulin Glargine,Hum.Rec.Anlog 100 Unit/Ml 10 Ml Vial) 28 unit SUBCUT DAILY [facility] Last Admin: 05/31/25 08:45 Dose: 28 unit Documented By: EMILIE Insulin Human Lispro (Insulin Lispro 100 Unit/Ml 3 Ml Vial) 0 unit SUBCUT QIDACHS [facility]; Protocol Last Admin: 05/31/25 08:46 Dose: 1 unit Documented By: EMILIE Isosorbide Mononitrate (Isosorbide Mononitrate 60 Mg Tab.Er.24h) 60 mg PO DAILY [facility] Last Admin: 05/31/25 08:47 Dose: 60 mg Documented By: EMILIE Levothyroxine Sodium (Levothyroxine Sodium 150 Mcg Tablet) 150 mcg PO DAILY@0600 [facility] Last Admin: 05/31/25 05:27 Dose: 150 mcg Documented By: KERRIE Losartan Potassium (Losartan Potassium 50 Mg Tablet) 100 mg PO DAILY [facility] Last Admin: 05/31/25 08:47 Dose: 100 mg Documented By: EMILIE Magnesium Hydroxide (Milk Of Magnesia 30 Ml Oral.Susp) 30 ml PO DAILY PRN PRN Reason: Constipation Magnesium Oxide (Magnesium Oxide 400 Mg Tablet) 400 mg PO DAILY [facility] Last Admin: 05/31/25 08:46 Dose: 400 mg Documented By: EMILIE Metoprolol Succinate (Metoprolol Succinate Er 50 Mg Tab.Er.24h) 50 mg PO BEDTIME [facility] Last Admin: 05/30/25 20:56 Dose: 50 mg Documented By: KERRIE Mupirocin (Mupirocin 2 % Oint 22 Gm Tube) 1 appl TOPICAL BID PRN PRN Reason: WOUND CARE Nitroglycerin (Nitroglycerin 0.4 Mg Tab.Subl) 0.4 mg SUBLINGUAL Q5M PRN PRN Reason: Chest Pain Oxycodone HCl (Oxycodone Hcl Immed Release 5 Mg Tablet) 5 mg PO Q6H PRN PRN Reason: Pain, Moderate(Pain Scale 4-6) Last Admin: 05/29/25 13:43 Dose: 5 mg Documented By: NAY Paliperidone (Paliperidone Er 6 Mg Tab.Er.24) 6 mg PO DAILY [facility] Last Admin: 05/31/25 08:47 Dose: 6 mg Documented By: EMILIE Polyethylene Glycol (Polyethylene Glycol 3350 17 Gm Powd.Pack) 17 gm PO DAILY PRN PRN Reason: Constipation Senna (Sennosides 8.6 Mg Tablet) 8.6 mg PO DAILY PRN PRN Reason: Constipation Trazodone HCl (Trazodone Hcl 50 Mg Tablet) 50 mg PO BEDTIME MRX1 PRN PRN Reason: Insomnia Labs 05/30/25 14:09 05/31/25 07:43 Labs: Laboratory Results - last 24 hr 05/30/25 05/30/25 05/30/25 12:27 14:09 15:25 MCV 96.0 MCH 30.2 MCHC 31.5 RDW 12.4 Plt Count 114 L MPV 11.0 Immature Gran % (Auto) 0.6 H Neut % (Auto) 72.2 Lymph % (Auto) 17.6 L Turner % (Auto) 8.0 Eos % (Auto) 1.2 Baso % (Auto) 0.4 Lymph # (Auto) 2.1 Turner # (Auto) 1.0 Eos # (Auto) 0.1 Baso # (Auto) 0.1 Abs Immat Gran (auto) 0.07 H Absolute Neuts (auto) 8.8 H Absolute Nucleated RBC 0.000 Nucleated RBC % (auto) 0.0 Smear Tech's Comments VERIFIED Anion Gap 11 L Estim Creat Clear Calc 33.3 Estimated GFR 32 POC Glucose 197 H Random Glucose 241 H Estimat Average Glucose Hemoglobin A1c % Calcium 9.3 Magnesium 2.0 Total Bilirubin 0.5 AST 83 H ALT 21 Alkaline Phosphatase 99 Total Creatine Kinase Total Protein 6.6 Albumin 3.8 Triglycerides Cholesterol LDL Cholesterol, Calc HDL Cholesterol Urine Color Yellow Urine Appearance Clear Urine pH 5.0 Ur Specific [place] 1.020 Urine Protein Trace Urine Glucose (UA) 100 H Urine Ketones Negative Urine Blood Negative Urine Nitrite Negative Ur Leukocyte Esterase Small (1+) H Urine RBC 0-2 Urine WBC 11-20 H Ur Squamous Epith Cells 11-20 Urine Bacteria None Seen Hyaline Casts 6-10 05/30/25 05/30/25 05/30/25 15:56 16:06 20:12 MCV MCH MCHC RDW Plt Count MPV Immature Gran % (Auto) Neut % (Auto) Lymph % (Auto) Turner % (Auto) Eos % (Auto) Baso % (Auto) Lymph # (Auto) Turner # (Auto) Eos # (Auto) Baso # (Auto) Abs Immat Gran (auto) Absolute Neuts (auto) Absolute Nucleated RBC Nucleated RBC % (auto) Smear Tech's Comments Anion Gap Estim Creat Clear Calc Estimated GFR POC Glucose 250 H 333 H Random Glucose Estimat Average Glucose Hemoglobin A1c % Calcium Magnesium Total Bilirubin AST ALT Alkaline Phosphatase Total Creatine Kinase 1477 H Total Protein Albumin Triglycerides Cholesterol LDL Cholesterol, Calc HDL Cholesterol Urine Color Urine Appearance Urine pH Ur Specific [place] Urine Protein Urine Glucose (UA) Urine Ketones Urine Blood Urine Nitrite Ur Leukocyte Esterase Urine RBC Urine WBC Ur Squamous Epith Cells Urine Bacteria Hyaline Casts 05/31/25 05/31/25 06:22 07:43 MCV MCH MCHC RDW Plt Count MPV Immature Gran % (Auto) Neut % (Auto) Lymph % (Auto) Turner % (Auto) Eos % (Auto) Baso % (Auto) Lymph # (Auto) Turner # (Auto) Eos # (Auto) Baso # (Auto) Abs Immat Gran (auto) Absolute Neuts (auto) Absolute Nucleated RBC Nucleated RBC % (auto) Smear Tech's Comments Anion Gap 11 L Estim Creat Clear Calc 29.7 Estimated GFR 28 POC Glucose 246 H Random Glucose 225 H Estimat Average Glucose 240 Hemoglobin A1c % 10.0 H Calcium 8.9 Magnesium Total Bilirubin 0.4 AST 66 H ALT 18 Alkaline Phosphatase 88 Total Creatine Kinase Total Protein 5.7 L Albumin 3.1 L Triglycerides 82 Cholesterol 94 LDL Cholesterol, Calc 34 HDL Cholesterol 44 Urine Color Urine Appearance Urine pH Ur Specific [place] Urine Protein Urine Glucose (UA) Urine Ketones Urine Blood Urine Nitrite Ur Leukocyte Esterase Urine RBC Urine WBC Ur Squamous Epith Cells Urine Bacteria Hyaline Casts Assessment and Plan (1) ARRON (acute kidney injury): Status: Acute Plan 70-year-old female presented from assisted living facility with past medical history as listed below. Admitted for stabilization, presented to the unit with questionable stroke-like symptoms. Stroke alert was called. CT head was negative. Depression/anxiety Treatment per psychiatric team Statin induced myositis/Mild Rhabdo Discontinue statin Patient to follow up with primary care regarding Repatha Patient with Stroke-like symptoms on arrival to unit On aspirin and Plavix CT head negative, UA negative Check liver function tests, repeat CPK in am. Acute kidney injury likely due to mild rhabdo Gentle hydration with 75 cc normal saline Follow labs. Insulin-dependent type 2 diabetes with neuropathy Increase Lantus to 34 units daily, continue lispro sliding scale Continue gabapentin Hga1c 10 COPD Continue Trelegy Ellipta No acute exacerbation Baseline home O2 2-4 L a minute Hypertension/hyperlipidemia/chronic systolic diastolic heart failure/CAD Continue Imdur, Cozaar, Toprol and Lasix Lipitor DC due to myositis, patient will need outpatient follow up question Repatha Continue Plavix and aspirin Hypothyroidism Continue levothyroxine Chronic back pain on chronic opiate therapy On chronic opioids which may be contributing to her mental status changes Thank you for allowing me to participate in the care of this patient. Will follow with you, please notify medical provider with any changes in condition or concerns. Quality Stroke Does the patient have a stroke diagnosis?: No VTE Prior VTE?: No VTE Risk Level:: Medical - low VTE Device Contraindication: Treatment Not Indicated VTE Drug Contraindication: N/A - Med Ordered
[2025-05-31 09:08] LABS: Thyroid Stimulating Hormone 4.60 uIU/mL (0.32-4.0)
[2025-05-31 09:09] LABS: Vitamin B12 241 pg/mL (200-900)
--- NOTE | 2025-05-31 09:22 | P.PNPSI_ITS ---
Subjective Subjective Date of Service: 05/31/25 Reason For Visit: SI Subjective Notes: Conditional Voluntary Interim History: Pt with less delayed in response. She reports she feels fine and denies symptoms of depression. She also denies SI/HI. She reports her main concern is her back and back pain and thinks currently medication not enough. She is not able to ambulate on her own. She also now has continuos oxygen. She does not know what medications she is taking. She denies psychosis, and does not seemed to have s/s of psychosis. Unclear why she is on paliperidone. Review of Systems Review of Systems Denies any shortness of breath, chest pain, headaches, dysuria, abdominal pain or discomfort, nausea, vomiting or diarrhea. Denies chills. Yes all other systems are reviewed and are negative Mental Status Exam Mental Status Exam Narrative: Appearance: wearing hospital gown, oxygen cannula on, seems somewhat SOB, lip breathing, in NAD Behavior: some difficulty engaging in interview Psychomotor: some retardation noted. Speech: mostly clear, normal rate/rhythm, very soft volume, minimally spontaneous TP: mostly linear TC: feeling depressed Mood: depressed Affect: constricted SI: passive SI, but had thoughts of wanting to OD on medications. HI: none Insight/judgment: poor x 2. Memory/cog: alert, oriented to place, month, year. Pending MOCA/ACL Diagnostics Vital Signs (24Hr): Vital Signs - 24 hr 05/30/25 11:12 05/30/25 11:40 05/30/25 12:25 Temperature 97.8 F 98.2 F Pulse Rate 72 76 80 Respiratory Rate 16 18 16 Blood Pressure 100/52 L 101/53 L Pulse Oximetry 96 96 95 Oxygen Delivery Method Nasal Cannula Nasal Cannula Nasal Cannula Oxygen Flow Rate 2 2 2 05/30/25 20:00 Temperature 97.7 F Pulse Rate 83 Respiratory Rate 18 Blood Pressure 113/56 L Pulse Oximetry 97 Oxygen Delivery Method Nasal Cannula Oxygen Flow Rate BMI result Body Mass Index 30.6 Labs 05/30/25 14:09 06/01/25 07:39 Labs: Laboratory Results - last 48 hr 05/29/25 05/29/25 05/29/25 11:32 14:30 21:18 WBC RBC Hgb Hct MCV MCH MCHC RDW Plt Count MPV Immature Gran % (Auto) Neut % (Auto) Lymph % (Auto) [place] % (Auto) Eos % (Auto) Baso % (Auto) Lymph # (Auto) [place] # (Auto) Eos # (Auto) Baso # (Auto) Abs Immat Gran (auto) Absolute Neuts (auto) Absolute Nucleated RBC Nucleated RBC % (auto) Smear Tech's Comments Sodium Potassium Chloride Carbon Dioxide Anion Gap BUN Creatinine Estim Creat Clear Calc Estimated GFR POC Glucose 255 H 226 H 169 H Random Glucose Estimat Average Glucose Hemoglobin A1c % Calcium Magnesium Total Bilirubin AST ALT Alkaline Phosphatase Total Creatine Kinase Total Protein Albumin Triglycerides Cholesterol LDL Cholesterol, Calc HDL Cholesterol Vitamin B12 TSH Urine Color Urine Appearance Urine pH Ur Specific [place] Urine Protein Urine Glucose (UA) Urine Ketones Urine Blood Urine Nitrite Ur Leukocyte Esterase Urine RBC Urine WBC Ur Squamous Epith Cells Urine Bacteria Hyaline Casts 05/30/25 05/30/25 05/30/25 08:11 12:27 14:09 WBC 12.1 H RBC 4.30 Hgb 13.0 Hct 41.3 MCV 96.0 MCH 30.2 MCHC 31.5 RDW 12.4 Plt Count 114 L MPV 11.0 Immature Gran % (Auto) 0.6 H Neut % (Auto) 72.2 Lymph % (Auto) 17.6 L [place] % (Auto) 8.0 Eos % (Auto) 1.2 Baso % (Auto) 0.4 Lymph # (Auto) 2.1 [place] # (Auto) 1.0 Eos # (Auto) 0.1 Baso # (Auto) 0.1 Abs Immat Gran (auto) 0.07 H Absolute Neuts (auto) 8.8 H Absolute Nucleated RBC 0.000 Nucleated RBC % (auto) 0.0 Smear Tech's Comments VERIFIED Sodium 139 Potassium 5.3 H D Chloride 100 Carbon Dioxide 33 H Anion Gap 11 L BUN 31 H Creatinine 1.57 H Estim Creat Clear Calc 33.3 Estimated GFR 32 POC Glucose 187 H 197 H Random Glucose 241 H Estimat Average Glucose Hemoglobin A1c % Calcium 9.3 Magnesium 2.0 Total Bilirubin 0.5 AST 83 H ALT 21 Alkaline Phosphatase 99 Total Creatine Kinase Total Protein 6.6 Albumin 3.8 Triglycerides Cholesterol LDL Cholesterol, Calc HDL Cholesterol Vitamin B12 TSH Urine Color Urine Appearance Urine pH Ur Specific [place] Urine Protein Urine Glucose (UA) Urine Ketones Urine Blood Urine Nitrite Ur Leukocyte Esterase Urine RBC Urine WBC Ur Squamous Epith Cells Urine Bacteria Hyaline Casts 05/30/25 05/30/25 05/30/25 15:25 15:56 16:06 WBC RBC Hgb Hct MCV MCH MCHC RDW Plt Count MPV Immature Gran % (Auto) Neut % (Auto) Lymph % (Auto) [place] % (Auto) Eos % (Auto) Baso % (Auto) Lymph # (Auto) [place] # (Auto) Eos # (Auto) Baso # (Auto) Abs Immat Gran (auto) Absolute Neuts (auto) Absolute Nucleated RBC Nucleated RBC % (auto) Smear Tech's Comments Sodium Potassium Chloride Carbon Dioxide Anion Gap BUN Creatinine Estim Creat Clear Calc Estimated GFR POC Glucose 250 H Random Glucose Estimat Average Glucose Hemoglobin A1c % Calcium Magnesium Total Bilirubin AST ALT Alkaline Phosphatase Total Creatine Kinase 1477 H Total Protein Albumin Triglycerides Cholesterol LDL Cholesterol, Calc HDL Cholesterol Vitamin B12 TSH Urine Color Yellow Urine Appearance Clear Urine pH 5.0 Ur Specific [place] 1.020 Urine Protein Trace Urine Glucose (UA) 100 H Urine Ketones Negative Urine Blood Negative Urine Nitrite Negative Ur Leukocyte Esterase Small (1+) H Urine RBC 0-2 Urine WBC 11-20 H Ur Squamous Epith Cells 11-20 Urine Bacteria None Seen Hyaline Casts 6-10 05/30/25 05/31/25 05/31/25 20:12 06:22 07:43 WBC RBC Hgb Hct MCV MCH MCHC RDW Plt Count MPV Immature Gran % (Auto) Neut % (Auto) Lymph % (Auto) [place] % (Auto) Eos % (Auto) Baso % (Auto) Lymph # (Auto) [place] # (Auto) Eos # (Auto) Baso # (Auto) Abs Immat Gran (auto) Absolute Neuts (auto) Absolute Nucleated RBC Nucleated RBC % (auto) Smear Tech's Comments Sodium 138 Potassium 5.1 Chloride 103 Carbon Dioxide 29 Anion Gap 11 L BUN 45 H Creatinine 1.76 H Estim Creat Clear Calc 29.7 Estimated GFR 28 POC Glucose 333 H 246 H Random Glucose 225 H Estimat Average Glucose 240 Hemoglobin A1c % 10.0 H Calcium 8.9 Magnesium Total Bilirubin 0.4 AST 66 H ALT 18 Alkaline Phosphatase 88 Total Creatine Kinase Total Protein 5.7 L Albumin 3.1 L Triglycerides 82 Cholesterol 94 LDL Cholesterol, Calc 34 HDL Cholesterol 44 Vitamin B12 241 TSH 4.60 H Urine Color Urine Appearance Urine pH Ur Specific [place] Urine Protein Urine Glucose (UA) Urine Ketones Urine Blood Urine Nitrite Ur Leukocyte Esterase Urine RBC Urine WBC Ur Squamous Epith Cells Urine Bacteria Hyaline Casts Imaging Radiology Impressions: ITS Impressions Head CT 05/30/25 12:33 IMPRESSION: No acute intracranial abnormality. No CT evidence of acute territorial infarct. This critical result was relayed to Monique Muse NP via secure text at 12:50 PM, 05/30/2025. Electronically signed by: Shiraz Zuniga MD 05/30/2025 12:54 PM [facility] Medications Medications Current Medications Acetaminophen (Acetaminophen 325 Mg Tablet) 650 mg PO Q6H PRN PRN Reason: Headache/Pain, Scale 1-10 Al Hydroxide/Mg Hydroxide (Magnesium Hydrox/Alum Hydrox 30 Ml Oral.Susp) 30 ml PO Q6H PRN PRN Reason: Heartburn/Nausea Albuterol/Ipratropium (Albuterol/Iprat 2.5/0.5mg 3 Ml Ampul.Neb) 3 ml INHALE Q6H PRN PRN Reason: Shortness of Breath/Wheezing Aspirin (Aspirin Enteric Coated 81 Mg Tablet.) 81 mg PO DAILY [facility] Last Admin: 05/31/25 08:46 Dose: 81 mg Atorvastatin Calcium (Atorvastatin Calcium 80 Mg Tablet) 80 mg PO DAILY [facility] Last Admin: 05/31/25 08:47 Dose: 80 mg Clonazepam (Clonazepam 0.5 Mg Tablet) 0.5 mg PO BID [facility] Last Admin: 05/31/25 08:47 Dose: 0.5 mg Clopidogrel Bisulfate (Clopidogrel Bisulfate 75 Mg Tablet) 75 mg PO DAILY [facility] Last Admin: 05/31/25 08:47 Dose: 75 mg Collagenase (Collagenase Clostridium Hist. 30 Gm Tube) 1 appl TOPICAL DAILY [facility] Last Admin: 05/30/25 08:31 Dose: Not Given Fluticasone/Umeclidinium/Vilanterol (Fluticasone/Umeclidinium/Vilanterol 100/62.5/25 Blst.W.Dev) 1 puff INHALE RDAILY [facility] Last Admin: 05/30/25 08:27 Dose: Not Given Fluvoxamine Maleate (Fluvoxamine Maleate 50 Mg Tablet) 75 mg PO BEDTIME [facility] Last Admin: 05/30/25 20:56 Dose: 75 mg Furosemide (Furosemide 40 Mg Tablet) 40 mg PO DAILY [facility] Last Admin: 05/31/25 08:47 Dose: 40 mg Gabapentin (Gabapentin 600 Mg Tablet) 600 mg PO TID [facility] Last Admin: 05/31/25 08:47 Dose: 600 mg Glucose (Glucose Gel 15 Gm Gel..Gram.) 15 gm PO Q15M PRN; Protocol PRN Reason: per Hypoglycemia Standing Ord. Hydroxyzine HCl (Hydroxyzine Hcl 25 Mg Tablet) 25 mg PO Q6H PRN PRN Reason: mild anxiety Insulin Glargine (Insulin Glargine,Hum.Rec.Anlog 100 Unit/Ml 10 Ml Vial) 28 unit SUBCUT DAILY [facility] Last Admin: 05/31/25 08:45 Dose: 28 unit Insulin Human Lispro (Insulin Lispro 100 Unit/Ml 3 Ml Vial) 0 unit SUBCUT QIDACHS [facility]; Protocol Last Admin: 05/31/25 08:46 Dose: 1 unit Isosorbide Mononitrate (Isosorbide Mononitrate 60 Mg Tab.Er.24h) 60 mg PO DAILY [facility] Last Admin: 05/31/25 08:47 Dose: 60 mg Levothyroxine Sodium (Levothyroxine Sodium 150 Mcg Tablet) 150 mcg PO DAILY@0600 [facility] Last Admin: 05/31/25 05:27 Dose: 150 mcg Losartan Potassium (Losartan Potassium 50 Mg Tablet) 100 mg PO DAILY [facility] Last Admin: 05/31/25 08:47 Dose: 100 mg Magnesium Hydroxide (Milk Of Magnesia 30 Ml Oral.Susp) 30 ml PO DAILY PRN PRN Reason: Constipation Magnesium Oxide (Magnesium Oxide 400 Mg Tablet) 400 mg PO DAILY [facility] Last Admin: 05/31/25 08:46 Dose: 400 mg Metoprolol Succinate (Metoprolol Succinate Er 50 Mg Tab.Er.24h) 50 mg PO BEDTIME [facility] Last Admin: 05/30/25 20:56 Dose: 50 mg Mupirocin (Mupirocin 2 % Oint 22 Gm Tube) 1 appl TOPICAL BID PRN PRN Reason: WOUND CARE Nitroglycerin (Nitroglycerin 0.4 Mg Tab.Subl) 0.4 mg SUBLINGUAL Q5M PRN PRN Reason: Chest Pain Oxycodone HCl (Oxycodone Hcl Immed Release 5 Mg Tablet) 5 mg PO Q6H PRN PRN Reason: Pain, Moderate(Pain Scale 4-6) Last Admin: 05/29/25 13:43 Dose: 5 mg Paliperidone (Paliperidone Er 6 Mg Tab.Er.24) 6 mg PO DAILY [facility] Last Admin: 05/31/25 08:47 Dose: 6 mg Polyethylene Glycol (Polyethylene Glycol 3350 17 Gm Powd.Pack) 17 gm PO DAILY PRN PRN Reason: Constipation Senna (Sennosides 8.6 Mg Tablet) 8.6 mg PO DAILY PRN PRN Reason: Constipation Trazodone HCl (Trazodone Hcl 50 Mg Tablet) 50 mg PO BEDTIME MRX1 PRN PRN Reason: Insomnia Allergies Allergies Allergy/AdvReac Type Severity Reaction Status Date / Time divalproex sodium (Depakote) Allergy Unknown rash/hives Verified 05/27/25 12:57 morphine Allergy Unknown rash Verified 05/27/25 12:57 vancomycin Allergy Unknown resp sx Verified 05/27/25 12:57 Assessment & Plan Assessment & Plan (1) MDD (major depressive disorder), recurrent episode, moderate: Status: Acute Code(s): F33.1 - Major depressive disorder, recurrent, moderate (2) Cognitive impairment: Status: Acute Code(s): R41.89 - Other symptoms and signs involving cognitive functions and awareness Plan Mrs. Camacho is a 70 year-old woman with hx of MDD, who self presented to [facility] ED reporting increase depression mood, SI with plan to OD on meds. On the unit, pt reports feeling tired and depressed but denied SI/HI. She seemed more withdrawn and noted right side weakness. Her BP was low. Labs showed elevated Cr from 0.8 to 1.54. Hospitalist consulted. We discussed risks, benefits and alternative treatment options. Pending collateral information from OP prescriber/ family member. PLAN 05/31 continue current medications. pt denies depressed mood, also SI. in bed. can't move much. Reason for continued inpatient stay Substantial Risk for: inability to function Time Spent With Patient Time: Total time managing care of this patient today ____ minutes.
[2025-05-31] MEDS: oxyCODONE HCl Immed Release 5 MG TABLET PO ×2 (09:53→16:54)
[2025-05-31 11:28] LABS: Glucose, Whole Blood 337 mg/dL (60-115)
--- NOTE | 2025-05-31 13:03 | MHC.SL.SWA ---
Speech Pathologist Impression: Mild Oropharyngeal dysphagia Risk of Aspiration Due to: COPD, positioning limits Dysphasia Diet Status: Recommend UPGRADE to NDD2 (ground/mechanical), THIN Liquids. Trial smaller pills with liquids and larger pills WHOLE in puree. Liquid Consistency and Strategies for Safe Swallow: Liquid Intake Recommendation: Thin Liquid Intake Strategies: Solid Food Consistency: Dietary Recommendations: Grnd/Mech Altered (NDD2) Additional Modifications to Solid Foods: Oral Medication Intake: Whole with Liquid Please contact the pharmacy regarding appropriate crushable or liquid drug formulations that are available whenever modified delivery is recommended. Compensatory Strategies and Precautions to be Taken for Safe Swallow: Sitting Upright (90 deg) Small Bites and Sips Alternate Liquids/Solids Rate of Ingestion Change Supervision While Eating and Drinking for Safe Swallow: Intermittent Supervision Foods to Avoid: Swallowing Recommended Treatments: Compens. Strategy Educat. Recommendation for Speech: Inpatient Speech Therapy Comment: Patient met in room during lunch for dysphagia treatment. FARMWORKERS elevated head of bed for safer positioning. Patient cannot go to full 90 degrees due to back pain. Patient seen with lunch of pureed solids, thin liquids. Patient able to feed herself this date; little shaky but able to manage without spilling any items. Patient with improvement from yesterday. RN reporting no concerns and that patient tolerated small pill with liquid this date (couldn't be crushed). Patient given mechanical soft trial, small-medium talat cracker crumbs in her applesauce and pudding. Patient with occasional prolonged mastication with munch vs rotary chew; likely baseline given patient is edentulous. Patient with no s/sx of penetration/aspiration on trial. Patient with cough x1 on initial sip of coffee, no other overt s/sx with thin liquids. Recommend UPGRADE to NDD2 (ground/mechanical), THIN Liquids with intermittent supervision. Trial small pills with liquid and larger pills WHOLE in puree. Patient's diet upgraded in expanse. Recommendations communicated to GEOTECHNICAL ENGINEER, RD, and, RN via secure chat. Patient with mild dysarthria, ? baseline given dentition status. Some word-finding difficulties noted. FARM[employer] to continue to follow. Frequency/Duration: M-F daily Date Range for Service Req: Timeline to reassess: Certified Medical Assistant Clinican/Clinical Fellow: No Supervisory Statement: I have reviewed and agree with the student/clinical fellow's documentation: N/A Speech Language Pathologist: Rhonda Power M.A., [facility]
[2025-05-31 14:03] LABS: Alanine Aminotransferase 16 U/L (0-31); Albumin Level 3.2 g/dL (3.5-5.0); Alkaline Phosphatase 96 U/L (39-117); Aspartate Amino Transferase 58 U/L (5-31); Total Protein 5.5 g/dL (6.5-8.0)
--- NOTE | 2025-05-31 14:37 | PC.NURSE ---
#22 angio inserted without difficulty in therulty in the right forearm. IV fluids started at 75/hr.
[2025-05-31 16:03] LABS: Glucose, Whole Blood 355 mg/dL (60-115)
[2025-05-31 20:00] VITALS: BP 117/56; PULSE 91; RESP 16; TEMP 37; O2SAT 97
[2025-05-31 21:28] LABS: Glucose, Whole Blood 243 mg/dL (60-115)
[2025-06-01 02:42] VITALS: BP 117/56; PULSE 91
[2025-06-01] MEDS: Metoprolol Succinate ER 50 MG TAB.ER.24H PO ×2 (02:42→20:49)
[2025-06-01 06:37] LABS: Glucose, Whole Blood 146 mg/dL (60-115)
[2025-06-01 08:00] VITALS: BP 129/62; PULSE 80; RESP 16; TEMP 36.3; O2SAT 97
[2025-06-01] MEDS: Aspirin Enteric Coated 81 MG TABLET.DR PO (08:34)
[2025-06-01] MEDS: Insulin Glargine,Hum.rec.anlog 100 UNIT/ML 10 ML VIAL 34 UNIT SUBCUT (08:35)
[2025-06-01 08:41] LABS: Anion Gap 10 (12-20); Blood Urea Nitrogen 41 mg/dL (9-16); Calcium 8.9 mg/dL (8.4-10.2); Carbon Dioxide 34 mmol/L (22-29); Chloride 105 mmol/L (96-108); Creatinine Clr Calc Pharmacy 42.5; Estimated Glomerular Filt Rate 43; Potassium 4.9 mmol/L (3.3-5.1); Sodium 144 mmol/L (135-145)
[2025-06-01] MEDS: Fluticasone/Umeclidinium/Vilanterol 100/62.5/25 BLST.W.DEV 1 PUFF INHALE (08:41)
[2025-06-01 11:15] LABS: Glucose, Whole Blood 234 mg/dL (60-115)
[2025-06-01] MEDS: oxyCODONE HCl Immed Release 5 MG TABLET PO ×2 (11:28→20:49)
--- NOTE | 2025-06-01 11:34 | P.PNPSI_ITS ---
Subjective Subjective Date of Service: 06/01/25 Reason For Visit: SI Subjective Notes: Conditional Voluntary Interim History: Pt sleeping well. She is ambulating with walker, no longer inssa. VS stable. She denies depressed mood and SI and confused as to why she is here in the hospital. She does not seem to remember events leading to admission and fact that she was asking for it. I do think this is due to underlying cognitive issues. Review of Systems Review of Systems Denies any shortness of breath, chest pain, headaches, dysuria, abdominal pain or discomfort, nausea, vomiting or diarrhea. Denies chills. Yes all other systems are reviewed and are negative Mental Status Exam Mental Status Exam Narrative: Appearance: wearing hospital gown, oxygen cannula on, seems somewhat SOB, lip breathing, in NAD Behavior: some difficulty engaging in interview Psychomotor: some retardation noted. Speech: mostly clear, normal rate/rhythm, very soft volume, minimally spontaneous TP: mostly linear TC: feeling depressed Mood: depressed Affect: constricted SI: passive SI, but had thoughts of wanting to OD on medications. HI: none Insight/judgment: poor x 2. Memory/cog: alert, oriented to place, month, year. Pending MOCA/ACL Diagnostics Vital Signs (24Hr): Vital Signs - 24 hr 05/31/25 20:00 06/01/25 02:42 06/01/25 08:00 Temperature 98.6 F 97.4 F Pulse Rate 91 91 80 Respiratory Rate 16 16 Blood Pressure 117/56 L 117/56 L 129/62 Pulse Oximetry 97 97 Oxygen Delivery Method Room Air Nasal Cannula Oxygen Flow Rate 2 BMI result Body Mass Index 30.6 Labs 05/30/25 14:09 06/02/25 07:31 Labs: Laboratory Results - last 48 hr 05/30/25 05/30/25 05/30/25 12:27 14:09 15:25 WBC 12.1 H RBC 4.30 Hgb 13.0 Hct 41.3 MCV 96.0 MCH 30.2 MCHC 31.5 RDW 12.4 Plt Count 114 L MPV 11.0 Immature Gran % (Auto) 0.6 H Neut % (Auto) 72.2 Lymph % (Auto) 17.6 L [place] % (Auto) 8.0 Eos % (Auto) 1.2 Baso % (Auto) 0.4 Lymph # (Auto) 2.1 [place] # (Auto) 1.0 Eos # (Auto) 0.1 Baso # (Auto) 0.1 Abs Immat Gran (auto) 0.07 H Absolute Neuts (auto) 8.8 H Absolute Nucleated RBC 0.000 Nucleated RBC % (auto) 0.0 Smear Tech's Comments VERIFIED Sodium 139 Potassium 5.3 H D Chloride 100 Carbon Dioxide 33 H Anion Gap 11 L BUN 31 H Creatinine 1.57 H Estim Creat Clear Calc 33.3 Estimated GFR 32 POC Glucose 197 H Random Glucose 241 H Estimat Average Glucose Hemoglobin A1c % Calcium 9.3 Magnesium 2.0 Total Bilirubin 0.5 Direct Bilirubin AST 83 H ALT 21 Alkaline Phosphatase 99 Total Creatine Kinase Total Protein 6.6 Albumin 3.8 Triglycerides Cholesterol LDL Cholesterol, Calc HDL Cholesterol Vitamin B12 TSH Urine Color Yellow Urine Appearance Clear Urine pH 5.0 Ur Specific [place] 1.020 Urine Protein Trace Urine Glucose (UA) 100 H Urine Ketones Negative Urine Blood Negative Urine Nitrite Negative Ur Leukocyte Esterase Small (1+) H Urine RBC 0-2 Urine WBC 11-20 H Ur Squamous Epith Cells 11-20 Urine Bacteria None Seen Hyaline Casts 6-05/30/25 05/30/25 05/30/25 15:56 16:06 20:12 WBC RBC Hgb Hct MCV MCH MCHC RDW Plt Count MPV Immature Gran % (Auto) Neut % (Auto) Lymph % (Auto) [place] % (Auto) Eos % (Auto) Baso % (Auto) Lymph # (Auto) [place] # (Auto) Eos # (Auto) Baso # (Auto) Abs Immat Gran (auto) Absolute Neuts (auto) Absolute Nucleated RBC Nucleated RBC % (auto) Smear Tech's Comments Sodium Potassium Chloride Carbon Dioxide Anion Gap BUN Creatinine Estim Creat Clear Calc Estimated GFR POC Glucose 250 H 333 H Random Glucose Estimat Average Glucose Hemoglobin A1c % Calcium Magnesium Total Bilirubin Direct Bilirubin AST ALT Alkaline Phosphatase Total Creatine Kinase 1477 H Total Protein Albumin Triglycerides Cholesterol LDL Cholesterol, Calc HDL Cholesterol Vitamin B12 TSH Urine Color Urine Appearance Urine pH Ur Specific [place] Urine Protein Urine Glucose (UA) Urine Ketones Urine Blood Urine Nitrite Ur Leukocyte Esterase Urine RBC Urine WBC Ur Squamous Epith Cells Urine Bacteria Hyaline Casts 05/31/25 05/31/25 05/31/25 06:22 07:43 11:23 WBC RBC Hgb Hct MCV MCH MCHC RDW Plt Count MPV Immature Gran % (Auto) Neut % (Auto) Lymph % (Auto) [place] % (Auto) Eos % (Auto) Baso % (Auto) Lymph # (Auto) [place] # (Auto) Eos # (Auto) Baso # (Auto) Abs Immat Gran (auto) Absolute Neuts (auto) Absolute Nucleated RBC Nucleated RBC % (auto) Smear Tech's Comments Sodium 138 Potassium 5.1 Chloride 103 Carbon Dioxide 29 Anion Gap 11 L BUN 45 H Creatinine 1.76 H Estim Creat Clear Calc 29.7 Estimated GFR 28 POC Glucose 246 H 337 H Random Glucose 225 H Estimat Average Glucose 240 Hemoglobin A1c % 10.0 H Calcium 8.9 Magnesium Total Bilirubin 0.4 Direct Bilirubin AST 66 H ALT 18 Alkaline Phosphatase 88 Total Creatine Kinase Total Protein 5.7 L Albumin 3.1 L Triglycerides 82 Cholesterol 94 LDL Cholesterol, Calc 34 HDL Cholesterol 44 Vitamin B12 241 TSH 4.60 H Urine Color Urine Appearance Urine pH Ur Specific [place] Urine Protein Urine Glucose (UA) Urine Ketones Urine Blood Urine Nitrite Ur Leukocyte Esterase Urine RBC Urine WBC Ur Squamous Epith Cells Urine Bacteria Hyaline Casts 05/31/25 05/31/25 05/31/25 13:40 15:58 21:15 WBC RBC Hgb Hct MCV MCH MCHC RDW Plt Count MPV Immature Gran % (Auto) Neut % (Auto) Lymph % (Auto) [place] % (Auto) Eos % (Auto) Baso % (Auto) Lymph # (Auto) [place] # (Auto) Eos # (Auto) Baso # (Auto) Abs Immat Gran (auto) Absolute Neuts (auto) Absolute Nucleated RBC Nucleated RBC % (auto) Smear Tech's Comments Sodium Potassium Chloride Carbon Dioxide Anion Gap BUN Creatinine Estim Creat Clear Calc Estimated GFR POC Glucose 355 H* 243 H Random Glucose Estimat Average Glucose Hemoglobin A1c % Calcium Magnesium Total Bilirubin 0.3 Direct Bilirubin 0.1 AST 58 H ALT 16 Alkaline Phosphatase 96 Total Creatine Kinase Total Protein 5.5 L Albumin 3.2 L Triglycerides Cholesterol LDL Cholesterol, Calc HDL Cholesterol Vitamin B12 TSH Urine Color Urine Appearance Urine pH Ur Specific [place] Urine Protein Urine Glucose (UA) Urine Ketones Urine Blood Urine Nitrite Ur Leukocyte Esterase Urine RBC Urine WBC Ur Squamous Epith Cells Urine Bacteria Hyaline Casts 06/01/25 06/01/25 06/01/25 06:22 07:39 11:09 WBC RBC Hgb Hct MCV MCH MCHC RDW Plt Count MPV Immature Gran % (Auto) Neut % (Auto) Lymph % (Auto) [place] % (Auto) Eos % (Auto) Baso % (Auto) Lymph # (Auto) [place] # (Auto) Eos # (Auto) Baso # (Auto) Abs Immat Gran (auto) Absolute Neuts (auto) Absolute Nucleated RBC Nucleated RBC % (auto) Smear Tech's Comments Sodium 144 Potassium 4.9 Chloride 105 Carbon Dioxide 34 H Anion Gap 10 L BUN 41 H Creatinine 1.23 Estim Creat Clear Calc 42.5 Estimated GFR 43 POC Glucose 146 H 234 H Random Glucose 157 H Estimat Average Glucose Hemoglobin A1c % Calcium 8.9 Magnesium Total Bilirubin Direct Bilirubin AST ALT Alkaline Phosphatase Total Creatine Kinase 660 H Total Protein Albumin Triglycerides Cholesterol LDL Cholesterol, Calc HDL Cholesterol Vitamin B12 TSH Urine Color Urine Appearance Urine pH Ur Specific [place] Urine Protein Urine Glucose (UA) Urine Ketones Urine Blood Urine Nitrite Ur Leukocyte Esterase Urine RBC Urine WBC Ur Squamous Epith Cells Urine Bacteria Hyaline Casts Imaging Radiology Impressions: ITS Impressions Head CT 05/30/25 12:33 IMPRESSION: No acute intracranial abnormality. No CT evidence of acute territorial infarct. This critical result was relayed to Monique Muse NP via secure text at 12:50 PM, 05/30/2025. Electronically signed by: Shiraz Zuniga MD 05/30/2025 12:54 PM [facility] Medications Medications Current Medications Acetaminophen (Acetaminophen 325 Mg Tablet) 650 mg PO Q6H PRN PRN Reason: Headache/Pain, Scale 1-10 Last Admin: 05/31/25 16:54 Dose: 650 mg Al Hydroxide/Mg Hydroxide (Magnesium Hydrox/Alum Hydrox 30 Ml Oral.Susp) 30 ml PO Q6H PRN PRN Reason: Heartburn/Nausea Albuterol/Ipratropium (Albuterol/Iprat 2.5/0.5mg 3 Ml Ampul.Neb) 3 ml INHALE Q6H PRN PRN Reason: Shortness of Breath/Wheezing Aspirin (Aspirin Enteric Coated 81 Mg Tablet.) 81 mg PO DAILY [facility] Last Admin: 06/01/25 08:34 Dose: 81 mg Clonazepam (Clonazepam 0.5 Mg Tablet) 0.5 mg PO BID [facility] Last Admin: 06/01/25 08:34 Dose: 0.5 mg Clopidogrel Bisulfate (Clopidogrel Bisulfate 75 Mg Tablet) 75 mg PO DAILY [facility] Last Admin: 06/01/25 08:34 Dose: 75 mg Collagenase (Collagenase Clostridium Hist. 30 Gm Tube) 1 appl TOPICAL DAILY [facility] Last Admin: 06/01/25 08:43 Dose: Not Given Fluticasone/Umeclidinium/Vilanterol (Fluticasone/Umeclidinium/Vilanterol 100/62.5/25 Blst.W.Dev) 1 puff INHALE RDAILY [facility] Last Admin: 06/01/25 08:41 Dose: 1 puff Fluvoxamine Maleate (Fluvoxamine Maleate 50 Mg Tablet) 75 mg PO BEDTIME [facility] Last Admin: 05/31/25 20:24 Dose: 75 mg Furosemide (Furosemide 40 Mg Tablet) 40 mg PO DAILY [facility] Last Admin: 06/01/25 08:34 Dose: 40 mg Gabapentin (Gabapentin 600 Mg Tablet) 600 mg PO TID [facility] Last Admin: 06/01/25 08:34 Dose: 600 mg Glucose (Glucose Gel 15 Gm Gel..Gram.) 15 gm PO Q15M PRN; Protocol PRN Reason: per Hypoglycemia Standing Ord. Hydroxyzine HCl (Hydroxyzine Hcl 25 Mg Tablet) 25 mg PO Q6H PRN PRN Reason: mild anxiety Sodium Chloride (Ns) 1,000 mls @ 75 mls/hr IVCONT .[id number] [facility] Last Admin: 05/31/25 14:36 Dose: 75 mls/hr Sodium Chloride (Ns) 1,000 mls @ 75 mls/hr IVCONT .[id number] [facility] Stop: 06/02/25 00:49 Insulin Glargine (Insulin Glargine,Hum.Rec.Anlog 100 Unit/Ml 10 Ml Vial) 34 unit SUBCUT DAILY [facility] Last Admin: 06/01/25 08:35 Dose: 34 unit Insulin Human Lispro (Insulin Lispro 100 Unit/Ml 3 Ml Vial) 0 unit SUBCUT QIDACHS [facility]; Protocol Last Admin: 06/01/25 11:28 Dose: 4 unit Isosorbide Mononitrate (Isosorbide Mononitrate 60 Mg Tab.Er.24h) 60 mg PO DAILY [facility] Last Admin: 06/01/25 08:34 Dose: 60 mg Levothyroxine Sodium (Levothyroxine Sodium 150 Mcg Tablet) 150 mcg PO DAILY@0600 [facility] Last Admin: 06/01/25 06:19 Dose: 150 mcg Losartan Potassium (Losartan Potassium 50 Mg Tablet) 100 mg PO DAILY [facility] Last Admin: 06/01/25 08:34 Dose: 100 mg Magnesium Hydroxide (Milk Of Magnesia 30 Ml Oral.Susp) 30 ml PO DAILY PRN PRN Reason: Constipation Magnesium Oxide (Magnesium Oxide 400 Mg Tablet) 400 mg PO DAILY [facility] Last Admin: 06/01/25 08:34 Dose: 400 mg Metoprolol Succinate (Metoprolol Succinate Er 50 Mg Tab.Er.24h) 50 mg PO BEDTIME [facility] Last Admin: 06/01/25 02:42 Dose: 50 mg Mupirocin (Mupirocin 2 % Oint 22 Gm Tube) 1 appl TOPICAL BID PRN PRN Reason: WOUND CARE Nitroglycerin (Nitroglycerin 0.4 Mg Tab.Subl) 0.4 mg SUBLINGUAL Q5M PRN PRN Reason: Chest Pain Oxycodone HCl (Oxycodone Hcl Immed Release 5 Mg Tablet) 5 mg PO Q6H PRN PRN Reason: Pain, Moderate(Pain Scale 4-6) Last Admin: 06/01/25 11:28 Dose: 5 mg Polyethylene Glycol (Polyethylene Glycol 3350 17 Gm Powd.Pack) 17 gm PO DAILY PRN PRN Reason: Constipation Senna (Sennosides 8.6 Mg Tablet) 8.6 mg PO DAILY PRN PRN Reason: Constipation Trazodone HCl (Trazodone Hcl 50 Mg Tablet) 50 mg PO BEDTIME MRX1 PRN PRN Reason: Insomnia Allergies Allergies Allergy/AdvReac Type Severity Reaction Status Date / Time divalproex sodium (Depakote) Allergy Unknown rash/hives Verified 05/27/25 12:57 morphine Allergy Unknown rash Verified 05/27/25 12:57 vancomycin Allergy Unknown resp sx Verified 05/27/25 12:57 Assessment & Plan Assessment & Plan (1) MDD (major depressive disorder), recurrent episode, moderate: Status: Acute Code(s): F33.1 - Major depressive disorder, recurrent, moderate (2) Cognitive impairment: Status: Acute Code(s): R41.89 - Other symptoms and signs involving cognitive functions and awareness Plan Mrs. Camacho is a 70 year-old woman with hx of MDD, who self presented to [facility] reporting increase depression mood, SI with plan to OD on meds. On the unit, pt reports feeling tired and depressed but denied SI/HI. She seemed more withdrawn and noted right side weakness. Her BP was low. Labs showed elevated Cr from 0.8 to 1.54. Hospitalist consulted. We discussed risks, benefits and alternative treatment options. Pending collateral information from OP prescriber/ family member. PLAN 05/31 continue current medications. pt denies depressed mood, also SI. in bed. can't move much. 06/01 denies symptoms of depression, moving and talking more. off oxycontin ER. Reason for continued inpatient stay Substantial Risk for: inability to function Time Spent With Patient Time: Total time managing care of this patient today ____ minutes.
--- NOTE | 2025-06-01 13:03 | MHC.SL.SWA ---
Speech Pathologist Impression: Mild oral dysphagia Risk of Aspiration Due to: Dysphasia Diet Status: Recommend UPGRADE to NDD2 (ground/mechanical), THIN Liquids. Trial smaller pills with liquids and larger pills WHOLE in puree. Liquid Consistency and Strategies for Safe Swallow: Liquid Intake Recommendation: Thin Liquid Intake Strategies: Solid Food Consistency: Dietary Recommendations: Grnd/Mech Altered (NDD2) Additional Modifications to Solid Foods: Oral Medication Intake: Whole with Liquid Please contact the pharmacy regarding appropriate crushable or liquid drug formulations that are available whenever modified delivery is recommended. Compensatory Strategies and Precautions to be Taken for Safe Swallow: Sitting Upright (90 deg) Small Bites and Sips Alternate Liquids/Solids Rate of Ingestion Change Supervision While Eating and Drinking for Safe Swallow: Intermittent Supervision Foods to Avoid: Swallowing Recommended Treatments: Compens. Strategy Educat. Recommendation for Speech: Inpatient Speech Therapy Comment: Pt presents with mild cognitive/linguistic challenges and minimal dysphagia. Pt alert, pleasant and self-aware. Pt seen after lunch, FINANCIAL HEALTH COUNSELOR assisting pt in ambulating to her room with walker. Pt sat on side of bed, O2 via NC, IV pole to her right, not yet plugged in. MIXING MACHINE TENDER CORK GASKET discussed dysphagia evaluation and treatment with pt, who did not recall the assessment but denied difficulty with eating this day. Pt expressed worry over why her legs are so weak. Pt knew she was in the hospital but did not know why she came here. Pt expressed sadness that she has to be in the hospital but agreed that she is doing much better today. Pt speech remains moderately dysarthric with slowed rate and occasional misarticulations. Pt engaged in conversation with repetitions, asking MIXING MACHINE TENDER CORK GASKET and FINANCIAL HEALTH COUNSELOR if the hospital has contacted her friend 'Annmarie Bermudez'. Pt unable to identify her relationship to this person d/t anomic features of language and mild confusion about recent events. Pt expressed she cannot remember what was happening before she came to the hospital. FINANCIAL HEALTH COUNSELOR brought in oxygen machine, patiently listening and reassuring pt that she would find out if anyone was contacted. RN then arrived, standing in front of pt and abruptly interrupting pt to plug in the IV machine. Pt repeated herself again to ask RN if anyone was contacted to know that pt came to the hospital, noting she was worried about her apartment and stating apartment number. RN told pt that is a conversation to have with the social services assistant, not with the nurse or ... (RN waved her hand at MIXING MACHINE TENDER CORK GASKET). RN commenced untangling the IV plug; pt continued to attempt speaking to RN about her concerns. RN talked over pt stating that social services assistant 'will be in this afternoon'. Pt expressed her relief. MIXING MACHINE TENDER CORK GASKET attempted to speak to RN about pt status, but RN's attention was limited as RN now had moved toward the door, began dancing at the doorway, swinging arms forward, snapping fingers and stamping her feet. MIXING MACHINE TENDER CORK GASKET encourged pt that she is doing well when pt expresssed she [facility] No further discussion of pt current diet or communication status possible with RN at close of visit as RN was distracted by her own behavior. Frequency/Duration: M-F daily Date Range for Service Req: Timeline to reassess: Dietitian Therapeutic Clinican/Clinical Fellow: No Supervisory Statement: I have reviewed and agree with the student/clinical fellow's documentation: N/A Speech Language Pathologist: Hayde More M.S., CCC-MIXING MACHINE TENDER CORK GASKET
[2025-06-01 16:16] LABS: Glucose, Whole Blood 258 mg/dL (60-115)
--- NOTE | 2025-06-01 16:33 | PM.EVENT ---
Event Note Date of Service: 06/01/25 Event Note: Patient's creatinine kinase down to 660, creatinine improved to 1.23. We will order 1 more L of normal saline, check labs in a.m. and follow. Time Spent With Patient Time: Total time managing care of this patient today ____ minutes.
[2025-06-01 20:00] VITALS: BP 115/56; PULSE 75; RESP 16; TEMP 36.6; O2SAT 95
[2025-06-01 20:49] VITALS: BP 115/56; PULSE 75
[2025-06-01 21:13] LABS: Glucose, Whole Blood 250 mg/dL (60-115)
[2025-06-02 06:59] LABS: Glucose, Whole Blood 143 mg/dL (60-115)
[2025-06-02 07:00] VITALS: BMI 31.2
[2025-06-02 07:52] VITALS: BP 132/62; PULSE 70; RESP 16; TEMP 36.6; O2SAT 97
[2025-06-02] MEDS: Fluticasone/Umeclidinium/Vilanterol 100/62.5/25 BLST.W.DEV 1 PUFF INHALE (08:35)
[2025-06-02] MEDS: Insulin Glargine,Hum.rec.anlog 100 UNIT/ML 10 ML VIAL 34 UNIT SUBCUT (08:35)
[2025-06-02] MEDS: Aspirin Enteric Coated 81 MG TABLET.DR PO (08:36)
--- NOTE | 2025-06-02 08:47 | HO.PSYCHPN ---
Subjective Subjective Date of Service: 06/02/25 Reason For Visit: SI Subjective Notes: Conditional Voluntary Interim History: Pt reports she is not depressed nor suicidal. She is surprise as to why she is on a psych unit. She reported she was depressed last week but not this week. No SI/HI. forgetful, pain managed without oxy ER. Some irritable edge, exacerbated by forgetfulness. VS on lower side. Mental Status Exam Mental Status Exam Narrative: Appearance: wearing hospital gown, oxygen cannula on, seems somewhat SOB, lip breathing, in NAD Behavior: some difficulty engaging in interview Psychomotor: some retardation noted. Speech: mostly clear, normal rate/rhythm, very soft volume, minimally spontaneous TP: mostly linear TC: feeling depressed Mood: depressed Affect: constricted SI: passive SI, but had thoughts of wanting to OD on medications. HI: none Insight/judgment: poor x 2. Memory/cog: alert, oriented to place, month, year. Pending MOCA/ACL Diagnostics Vital Signs (24Hr): Vital Signs - 24 hr 06/01/25 20:00 06/01/25 20:49 06/02/25 07:52 Temperature 97.9 F 97.8 F Pulse Rate 75 75 70 Respiratory Rate 16 16 Blood Pressure 115/56 L 115/56 L 132/62 Pulse Oximetry 95 97 Oxygen Delivery Method Room Air Room Air BMI result Body Mass Index 30.6 Labs 05/30/25 14:09 06/02/25 07:31 Labs: Laboratory Results - last 48 hr 05/31/25 05/31/25 05/31/25 07:43 11:23 13:40 Hold Purple Top Sodium 138 Potassium 5.1 Chloride 103 Carbon Dioxide 29 Anion Gap 11 L BUN 45 H Creatinine 1.76 H Estim Creat Clear Calc 29.7 Estimated GFR 28 POC Glucose 337 H Random Glucose 225 H Calcium 8.9 Total Bilirubin 0.4 0.3 Direct Bilirubin 0.1 AST 66 H 58 H ALT 18 16 Alkaline Phosphatase 88 96 Total Creatine Kinase Total Protein 5.7 L 5.5 L Albumin 3.1 L 3.2 L Triglycerides 82 Cholesterol 94 LDL Cholesterol, Calc 34 HDL Cholesterol 44 Vitamin B12 241 TSH 4.60 H 05/31/25 05/31/25 06/01/25 15:58 21:15 06:22 Hold Purple Top Sodium Potassium Chloride Carbon Dioxide Anion Gap BUN Creatinine Estim Creat Clear Calc Estimated GFR POC Glucose 355 H* 243 H 146 H Random Glucose Calcium Total Bilirubin Direct Bilirubin AST ALT Alkaline Phosphatase Total Creatine Kinase Total Protein Albumin Triglycerides Cholesterol LDL Cholesterol, Calc HDL Cholesterol Vitamin B12 TSH 06/01/25 06/01/25 06/01/25 07:39 11:09 16:12 Hold Purple Top Sodium 144 Potassium 4.9 Chloride 105 Carbon Dioxide 34 H Anion Gap 10 L BUN 41 H Creatinine 1.23 Estim Creat Clear Calc 42.5 Estimated GFR 43 POC Glucose 234 H 258 H Random Glucose 157 H Calcium 8.9 Total Bilirubin Direct Bilirubin AST ALT Alkaline Phosphatase Total Creatine Kinase 660 H Total Protein Albumin Triglycerides Cholesterol LDL Cholesterol, Calc HDL Cholesterol Vitamin B12 TSH 06/01/25 06/02/25 21:09 06:49 Hold Purple Top SEE NOTE Sodium Potassium Chloride Carbon Dioxide Anion Gap BUN Creatinine Estim Creat Clear Calc Estimated GFR POC Glucose 250 H 143 H Random Glucose Calcium Total Bilirubin Direct Bilirubin AST ALT Alkaline Phosphatase Total Creatine Kinase Total Protein Albumin Triglycerides Cholesterol LDL Cholesterol, Calc HDL Cholesterol Vitamin B12 TSH Imaging Radiology Impressions: ITS Impressions Head CT 05/30/25 12:33 IMPRESSION: No acute intracranial abnormality. No CT evidence of acute territorial infarct. This critical result was relayed to Monique Muse NP via secure text at 12:50 PM, 05/30/2025. Electronically signed by: Shiraz Zuniga MD 05/30/2025 12:54 PM [facility] Medications Medications Current Medications Acetaminophen (Acetaminophen 325 Mg Tablet) 650 mg PO Q6H PRN PRN Reason: Headache/Pain, Scale 1-10 Last Admin: 05/31/25 16:54 Dose: 650 mg Al Hydroxide/Mg Hydroxide (Magnesium Hydrox/Alum Hydrox 30 Ml Oral.Susp) 30 ml PO Q6H PRN PRN Reason: Heartburn/Nausea Albuterol/Ipratropium (Albuterol/Iprat 2.5/0.5mg 3 Ml Ampul.Neb) 3 ml INHALE Q6H PRN PRN Reason: Shortness of Breath/Wheezing Aspirin (Aspirin Enteric Coated 81 Mg Tablet.Dr) 81 mg PO DAILY [facility] Last Admin: 06/02/25 08:36 Dose: 81 mg Clonazepam (Clonazepam 0.5 Mg Tablet) 0.5 mg PO BID [facility] Last Admin: 06/02/25 08:36 Dose: 0.5 mg Clopidogrel Bisulfate (Clopidogrel Bisulfate 75 Mg Tablet) 75 mg PO DAILY [facility] Last Admin: 06/02/25 08:36 Dose: 75 mg Collagenase (Collagenase Clostridium Hist. 30 Gm Tube) 1 appl TOPICAL DAILY [facility] Last Admin: 06/02/25 08:36 Dose: Not Given Fluticasone/Umeclidinium/Vilanterol (Fluticasone/Umeclidinium/Vilanterol 100/62.5/25 Blst.W.Dev) 1 puff INHALE RDAILY [facility] Last Admin: 06/02/25 08:35 Dose: 1 puff Fluvoxamine Maleate (Fluvoxamine Maleate 50 Mg Tablet) 75 mg PO BEDTIME [facility] Last Admin: 06/01/25 20:50 Dose: 75 mg Furosemide (Furosemide 40 Mg Tablet) 40 mg PO DAILY [facility] Last Admin: 06/02/25 08:36 Dose: 40 mg Gabapentin (Gabapentin 600 Mg Tablet) 600 mg PO TID [facility] Last Admin: 06/02/25 08:36 Dose: 600 mg Glucose (Glucose Gel 15 Gm Gel..Gram.) 15 gm PO Q15M PRN; Protocol PRN Reason: per Hypoglycemia Standing Ord. Hydroxyzine HCl (Hydroxyzine Hcl 25 Mg Tablet) 25 mg PO Q6H PRN PRN Reason: mild anxiety Sodium Chloride (Ns) 1,000 mls @ 75 mls/hr IVCONT .[id number] [facility] Last Infusion: 06/02/25 03:15 Dose: Infused Insulin Glargine (Insulin Glargine,Hum.Rec.Anlog 100 Unit/Ml 10 Ml Vial) 34 unit SUBCUT DAILY [facility] Last Admin: 06/02/25 08:35 Dose: 34 unit Insulin Human Lispro (Insulin Lispro 100 Unit/Ml 3 Ml Vial) 0 unit SUBCUT QIDACHS [facility]; Protocol Last Admin: 06/02/25 07:12 Dose: Not Given Isosorbide Mononitrate (Isosorbide Mononitrate 60 Mg Tab.Er.24h) 60 mg PO DAILY [facility] Last Admin: 06/02/25 08:36 Dose: 60 mg Levothyroxine Sodium (Levothyroxine Sodium 150 Mcg Tablet) 150 mcg PO DAILY@0600 [facility] Last Admin: 06/02/25 06:27 Dose: 150 mcg Losartan Potassium (Losartan Potassium 50 Mg Tablet) 100 mg PO DAILY [facility] Last Admin: 06/02/25 08:36 Dose: 100 mg Magnesium Hydroxide (Milk Of Magnesia 30 Ml Oral.Susp) 30 ml PO DAILY PRN PRN Reason: Constipation Magnesium Oxide (Magnesium Oxide 400 Mg Tablet) 400 mg PO DAILY [facility] Last Admin: 06/02/25 08:36 Dose: 400 mg Metoprolol Succinate (Metoprolol Succinate Er 50 Mg Tab.Er.24h) 50 mg PO BEDTIME [facility] Last Admin: 06/01/25 20:49 Dose: 50 mg Mupirocin (Mupirocin 2 % Oint 22 Gm Tube) 1 appl TOPICAL BID PRN PRN Reason: WOUND CARE Nitroglycerin (Nitroglycerin 0.4 Mg Tab.Subl) 0.4 mg SUBLINGUAL Q5M PRN PRN Reason: Chest Pain Oxycodone HCl (Oxycodone Hcl Immed Release 5 Mg Tablet) 5 mg PO Q6H PRN PRN Reason: Pain, Moderate(Pain Scale 4-6) Last Admin: 06/01/25 20:49 Dose: 5 mg Polyethylene Glycol (Polyethylene Glycol 3350 17 Gm Powd.Pack) 17 gm PO DAILY PRN PRN Reason: Constipation Senna (Sennosides 8.6 Mg Tablet) 8.6 mg PO DAILY PRN PRN Reason: Constipation Trazodone HCl (Trazodone Hcl 50 Mg Tablet) 50 mg PO BEDTIME MRX1 PRN PRN Reason: Insomnia Allergies Allergies Allergy/AdvReac Type Severity Reaction Status Date / Time divalproex sodium (Depakote) Allergy Unknown rash/hives Verified 05/27/25 12:57 morphine Allergy Unknown rash Verified 05/27/25 12:57 vancomycin Allergy Unknown resp sx Verified 05/27/25 12:57 Assessment & Plan Assessment & Plan (1) MDD (major depressive disorder), recurrent episode, moderate: Status: Acute Code(s): F33.1 - Major depressive disorder, recurrent, moderate (2) Cognitive impairment: Status: Acute Code(s): R41.89 - Other symptoms and signs involving cognitive functions and awareness Plan Mrs. Camacho is a 70 year-old woman with hx of MDD, who self presented to [facility] ED reporting increase depression mood, SI with plan to OD on meds. On the unit, pt reports feeling tired and depressed but denied SI/HI. She seemed more withdrawn and noted right side weakness. Her BP was low. Labs showed elevated Cr from 0.8 to 1.54. Hospitalist consulted. We discussed risks, benefits and alternative treatment options. Pending collateral information from OP prescriber/ family member. PLAN 05/31 continue current medications. pt denies depressed mood, also SI. in bed. can't move much. 06/01 continue tx. 06/02 continue tx. paliperidone was discontinued. pending collateral information from OP provider to get better idea of med trials. Reason for continued inpatient stay Substantial Risk for: inability to function Time Spent With Patient Time: Total time managing care of this patient today ____ minutes.
[2025-06-02 09:06] LABS: Anion Gap 11 (12-20); Blood Urea Nitrogen 28 mg/dL (9-16); Calcium 8.6 mg/dL (8.4-10.2); Carbon Dioxide 32 mmol/L (22-29); Chloride 104 mmol/L (96-108); Creatinine Clr Calc Pharmacy 52.3; Estimated Glomerular Filt Rate 55; Potassium 4.5 mmol/L (3.3-5.1); Sodium 142 mmol/L (135-145)
[2025-06-02 11:05] LABS: Glucose, Whole Blood 127 mg/dL (60-115)
[2025-06-02] MEDS: oxyCODONE HCl Immed Release 5 MG TABLET PO ×2 (15:04→21:07)
--- NOTE | 2025-06-02 15:45 | PM.EVENT ---
Event Note Date of Service: 06/02/25 Event Note: Creatinine continues to improve CK continues to improve. Encourage p.o. intake of fluid Labs reordered for tomorrow for consolidation Time Spent With Patient Time: Total time managing care of this patient today 0 minutes.
[2025-06-02 16:07] LABS: Glucose, Whole Blood 25 mg/dL (60-115)
[2025-06-02 16:07] LABS: Glucose, Whole Blood 162 mg/dL (60-115)
[2025-06-02 20:00] VITALS: BP 105/55; PULSE 80; RESP 16; TEMP 37; O2SAT 94
[2025-06-02] MEDS: Metoprolol Succinate ER 50 MG TAB.ER.24H PO (20:40)
[2025-06-02 20:58] LABS: Glucose, Whole Blood 208 mg/dL (60-115)
[2025-06-03] MEDS: oxyCODONE HCl Immed Release 5 MG TABLET PO (05:54)
[2025-06-03 06:47] LABS: Glucose, Whole Blood 147 mg/dL (60-115)
[2025-06-03 08:05] VITALS: BP 126/62; PULSE 73; RESP 18; TEMP 36.2; O2SAT 95
[2025-06-03] MEDS: Aspirin Enteric Coated 81 MG TABLET.DR PO (08:17)
[2025-06-03 08:18] LABS: Anion Gap 12 (12-20); Blood Urea Nitrogen 28 mg/dL (9-16); Calcium 9.3 mg/dL (8.4-10.2); Carbon Dioxide 34 mmol/L (22-29); Chloride 99 mmol/L (96-108); Creatinine Clr Calc Pharmacy 48.0; Estimated Glomerular Filt Rate 49; Potassium 4.5 mmol/L (3.3-5.1); Sodium 140 mmol/L (135-145)
[2025-06-03] MEDS: Insulin Glargine,Hum.rec.anlog 100 UNIT/ML 10 ML VIAL 34 UNIT SUBCUT (08:19)
[2025-06-03] MEDS: Fluticasone/Umeclidinium/Vilanterol 100/62.5/25 BLST.W.DEV 1 PUFF INHALE (08:20)
--- NOTE | 2025-06-03 08:28 | P.PNPSI_ITS ---
Subjective Subjective Date of Service: 06/03/25 Reason For Visit: SI Subjective Notes: Conditional Voluntary Interim History: Pt slept through the night. She continues to denied suicidal or homicidal ideation. She reports she feels less depressed. She has been visible on the unit, social with select peers. Seems very forgetful. pending MOCA/ACL. VS stable. she is eating more. Mental Status Exam Mental Status Exam Narrative: Appearance: wearing hospital gown, oxygen cannula on, seems somewhat SOB, lip breathing, in NAD Behavior: some difficulty engaging in interview Psychomotor: some retardation noted. Speech: mostly clear, normal rate/rhythm, very soft volume, minimally spontaneous TP: mostly linear TC: feeling depressed Mood: good Affect: brighter SI: denies HI: none Insight/judgment: poor x 2. Memory/cog: alert, oriented to place, month, year. Pending MOCA/ACL Diagnostics Vital Signs (24Hr): Vital Signs - 24 hr 06/02/25 20:00 Temperature 98.6 F Pulse Rate 80 Respiratory Rate 16 Blood Pressure 105/55 L Pulse Oximetry 94 Oxygen Delivery Method Room Air BMI result Body Mass Index 31.2 Labs 05/30/25 14:09 06/03/25 07:10 Labs: Laboratory Results - last 48 hr 06/01/25 06/01/25 06/01/25 07:39 11:09 16:12 Hold Purple Top Sodium 144 Potassium 4.9 Chloride 105 Carbon Dioxide 34 H Anion Gap 10 L BUN 41 H Creatinine 1.23 Estim Creat Clear Calc 42.5 Estimated GFR 43 POC Glucose 234 H 258 H Random Glucose 157 H Calcium 8.9 Total Creatine Kinase 660 H 06/01/25 06/02/25 06/02/25 21:09 06:49 07:31 Hold Purple Top SEE NOTE Sodium 142 Potassium 4.5 Chloride 104 Carbon Dioxide 32 H Anion Gap 11 L BUN 28 H Creatinine 1.00 Estim Creat Clear Calc 52.3 Estimated GFR 55 POC Glucose 250 H 143 H Random Glucose 127 H Calcium 8.6 Total Creatine Kinase 315 H 06/02/25 06/02/25 06/02/25 11:02 16:00 16:03 Hold Purple Top Sodium Potassium Chloride Carbon Dioxide Anion Gap BUN Creatinine Estim Creat Clear Calc Estimated GFR POC Glucose 127 H 25 L* 162 H Random Glucose Calcium Total Creatine Kinase 06/02/25 06/03/25 06/03/25 20:39 06:43 07:10 Hold Purple Top Sodium 140 Potassium 4.5 Chloride 99 Carbon Dioxide 34 H Anion Gap 12 BUN 28 H Creatinine 1.10 Estim Creat Clear Calc 48.0 Estimated GFR 49 POC Glucose 208 H 147 H Random Glucose 134 H Calcium 9.3 D Total Creatine Kinase 283 H Imaging Radiology Impressions: ITS Impressions Head CT 05/30/25 12:33 IMPRESSION: No acute intracranial abnormality. No CT evidence of acute territorial infarct. This critical result was relayed to Monique Muse NP via secure text at 12:50 PM, 05/30/2025. Electronically signed by: Shiraz Zuniga MD 05/30/2025 12:54 PM [facility] Medications Medications Current Medications Acetaminophen (Acetaminophen 325 Mg Tablet) 650 mg PO Q6H PRN PRN Reason: Headache/Pain, Scale 1-10 Last Admin: 05/31/25 16:54 Dose: 650 mg Al Hydroxide/Mg Hydroxide (Magnesium Hydrox/Alum Hydrox 30 Ml Oral.Susp) 30 ml PO Q6H PRN PRN Reason: Heartburn/Nausea Albuterol/Ipratropium (Albuterol/Iprat 2.5/0.5mg 3 Ml Ampul.Neb) 3 ml INHALE Q6H PRN PRN Reason: Shortness of Breath/Wheezing Aspirin (Aspirin Enteric Coated 81 Mg Tablet.Dr) 81 mg PO DAILY [facility] Last Admin: 06/03/25 08:17 Dose: 81 mg Clonazepam (Clonazepam 0.5 Mg Tablet) 0.5 mg PO BID [facility] Last Admin: 06/03/25 08:18 Dose: 0.5 mg Clopidogrel Bisulfate (Clopidogrel Bisulfate 75 Mg Tablet) 75 mg PO DAILY [facility] Last Admin: 06/03/25 08:18 Dose: 75 mg Collagenase (Collagenase Clostridium Hist. 30 Gm Tube) 1 appl TOPICAL DAILY [facility] Last Admin: 06/02/25 08:36 Dose: Not Given Fluticasone/Umeclidinium/Vilanterol (Fluticasone/Umeclidinium/Vilanterol 100/62.5/25 Blst.W.Dev) 1 puff INHALE RDAILY [facility] Last Admin: 06/03/25 08:20 Dose: 1 puff Fluvoxamine Maleate (Fluvoxamine Maleate 50 Mg Tablet) 75 mg PO BEDTIME [facility] Last Admin: 06/02/25 20:41 Dose: 75 mg Furosemide (Furosemide 40 Mg Tablet) 40 mg PO DAILY [facility] Last Admin: 06/03/25 08:18 Dose: 40 mg Gabapentin (Gabapentin 600 Mg Tablet) 600 mg PO TID [facility] Last Admin: 06/03/25 08:17 Dose: 600 mg Glucose (Glucose Gel 15 Gm Gel..Gram.) 15 gm PO Q15M PRN; Protocol PRN Reason: per Hypoglycemia Standing Ord. Hydroxyzine HCl (Hydroxyzine Hcl 25 Mg Tablet) 25 mg PO Q6H PRN PRN Reason: mild anxiety Insulin Glargine (Insulin Glargine,Hum.Rec.Anlog 100 Unit/Ml 10 Ml Vial) 34 unit SUBCUT DAILY [facility] Last Admin: 06/03/25 08:19 Dose: 34 unit Insulin Human Lispro (Insulin Lispro 100 Unit/Ml 3 Ml Vial) 0 unit SUBCUT QIDACHS [facility]; Protocol Last Admin: 06/03/25 07:21 Dose: Not Given Isosorbide Mononitrate (Isosorbide Mononitrate 60 Mg Tab.Er.24h) 60 mg PO DAILY [facility] Last Admin: 06/03/25 08:18 Dose: 60 mg Levothyroxine Sodium (Levothyroxine Sodium 150 Mcg Tablet) 150 mcg PO DAILY@0600 [facility] Last Admin: 06/03/25 05:54 Dose: 150 mcg Losartan Potassium (Losartan Potassium 50 Mg Tablet) 100 mg PO DAILY [facility] Last Admin: 06/03/25 08:17 Dose: 100 mg Magnesium Hydroxide (Milk Of Magnesia 30 Ml Oral.Susp) 30 ml PO DAILY PRN PRN Reason: Constipation Magnesium Oxide (Magnesium Oxide 400 Mg Tablet) 400 mg PO DAILY [facility] Last Admin: 06/03/25 08:18 Dose: 400 mg Metoprolol Succinate (Metoprolol Succinate Er 50 Mg Tab.Er.24h) 50 mg PO BEDTIME [facility] Last Admin: 06/02/25 20:40 Dose: 50 mg Mupirocin (Mupirocin 2 % Oint 22 Gm Tube) 1 appl TOPICAL BID PRN PRN Reason: WOUND CARE Nitroglycerin (Nitroglycerin 0.4 Mg Tab.Subl) 0.4 mg SUBLINGUAL Q5M PRN PRN Reason: Chest Pain Oxycodone HCl (Oxycodone Hcl Immed Release 5 Mg Tablet) 5 mg PO Q6H PRN PRN Reason: Pain, Moderate(Pain Scale 4-6) Last Admin: 06/03/25 05:54 Dose: 5 mg Polyethylene Glycol (Polyethylene Glycol 3350 17 Gm Powd.Pack) 17 gm PO DAILY PRN PRN Reason: Constipation Senna (Sennosides 8.6 Mg Tablet) 8.6 mg PO DAILY PRN PRN Reason: Constipation Trazodone HCl (Trazodone Hcl 50 Mg Tablet) 50 mg PO BEDTIME MRX1 PRN PRN Reason: Insomnia Last Admin: 06/02/25 23:46 Dose: 50 mg Allergies Allergies Allergy/AdvReac Type Severity Reaction Status Date / Time divalproex sodium (Depakote) Allergy Unknown rash/hives Verified 05/27/25 12:57 morphine Allergy Unknown rash Verified 05/27/25 12:57 vancomycin Allergy Unknown resp sx Verified 05/27/25 12:57 Assessment & Plan Assessment & Plan (1) MDD (major depressive disorder), recurrent episode, moderate: Status: Acute Code(s): F33.1 - Major depressive disorder, recurrent, moderate (2) Cognitive impairment: Status: Acute Code(s): R41.89 - Other symptoms and signs involving cognitive functions and awareness Plan Mrs. Camacho is a 70 year-old woman with hx of MDD, who self presented to [facility] ED reporting increase depression mood, SI with plan to OD on meds. On the unit, pt reports feeling tired and depressed but denied SI/HI. She seemed more withdrawn and noted right side weakness. Her BP was low. Labs showed elevated Cr from 0.8 to 1.54. Hospitalist consulted. We discussed risks, benefits and alternative treatment options. Pending collateral information from OP prescriber/ family member. PLAN 05/31 continue current medications. pt denies depressed mood, also SI. in bed. can't move much. 06/01 continue tx. 06/02 continue tx. paliperidone was discontinued. pending collateral information from OP provider to get better idea of med trials. 06/03 no si/hi. ambulating with walker, off oxygen. 95 on RA. Reason for continued inpatient stay Substantial Risk for: inability to function Time Spent With Patient Time: Total time managing care of this patient today ____ minutes.
[2025-06-03 11:06] LABS: Glucose, Whole Blood 175 mg/dL (60-115)
[2025-06-03 16:23] LABS: Glucose, Whole Blood 152 mg/dL (60-115)
--- NOTE | 2025-06-03 16:28 | MHC.SLORD ---
Speech Language Pathology Order Status: Patient unable to be seen by BLEACHING SUPERVISOR this date. Per RN, patient tolerating current diet and requesting upgrade next time seen. Recommend continuing with current diet. BLEACHING SUPERVISOR to continue to follow.
[2025-06-03 20:00] VITALS: BP 110/55; PULSE 65; RESP 18; TEMP 36.4; O2SAT 90
[2025-06-03] MEDS: Metoprolol Succinate ER 50 MG TAB.ER.24H PO (20:41)
[2025-06-03 20:50] LABS: Glucose, Whole Blood 237 mg/dL (60-115)
[2025-06-04 06:59] LABS: Glucose, Whole Blood 120 mg/dL (60-115)
[2025-06-04 08:00] VITALS: BP 113/53; PULSE 70; RESP 17; TEMP 36.6; O2SAT 93
--- NOTE | 2025-06-04 08:33 | HO.PSYCHPN ---
Subjective Subjective Date of Service: 06/04/25 Reason For Visit: SI Interim History: Pt slept through the night. She continues to denied suicidal or homicidal ideation. She reports she feels less depressed. She has been visible on the unit, social with select peers. Seems very forgetful. pending MOCA/ACL. VS stable. she is eating more. Review of Systems Review of Systems Denies any shortness of breath, chest pain, headaches, dysuria, abdominal pain or discomfort, nausea, vomiting or diarrhea. Denies chills. Yes all other systems are reviewed and are negative Mental Status Exam Mental Status Exam Narrative: Appearance: wearing hospital gown, oxygen cannula on, seems somewhat SOB, lip breathing, in NAD Behavior: some difficulty engaging in interview Psychomotor: some retardation noted. Speech: mostly clear, normal rate/rhythm, very soft volume, minimally spontaneous TP: mostly linear TC: feeling depressed Mood: good Affect: brighter SI: denies HI: none Insight/judgment: poor x 2. Memory/cog: alert, oriented to place, month, year. Pending MOCA/ACL Diagnostics Vital Signs (24Hr): Vital Signs - 24 hr 06/03/25 20:00 Temperature 97.6 F Pulse Rate 65 Respiratory Rate 18 Blood Pressure 110/55 L Pulse Oximetry 90 L Oxygen Delivery Method Room Air BMI result Body Mass Index 31.2 Labs 05/30/25 14:09 06/03/25 07:10 Labs: Laboratory Results - last 48 hr 06/02/25 06/02/25 06/02/25 07:31 11:02 16:00 Sodium 142 Potassium 4.5 Chloride 104 Carbon Dioxide 32 H Anion Gap 11 L BUN 28 H Creatinine 1.00 Estim Creat Clear Calc 52.3 Estimated GFR 55 POC Glucose 127 H 25 L* Random Glucose 127 H Calcium 8.6 Total Creatine Kinase 315 H 06/02/25 06/02/25 06/03/25 16:03 20:39 06:43 Sodium Potassium Chloride Carbon Dioxide Anion Gap BUN Creatinine Estim Creat Clear Calc Estimated GFR POC Glucose 162 H 208 H 147 H Random Glucose Calcium Total Creatine Kinase 06/03/25 06/03/25 06/03/25 07:10 11:02 16:18 Sodium 140 Potassium 4.5 Chloride 99 Carbon Dioxide 34 H Anion Gap 12 BUN 28 H Creatinine 1.10 Estim Creat Clear Calc 48.0 Estimated GFR 49 POC Glucose 175 H 152 H Random Glucose 134 H Calcium 9.3 D Total Creatine Kinase 283 H 06/03/25 06/04/25 20:43 06:43 Sodium Potassium Chloride Carbon Dioxide Anion Gap BUN Creatinine Estim Creat Clear Calc Estimated GFR POC Glucose 237 H 120 H Random Glucose Calcium Total Creatine Kinase Imaging Radiology Impressions: ITS Impressions Head CT 05/30/25 12:33 IMPRESSION: No acute intracranial abnormality. No CT evidence of acute territorial infarct. This critical result was relayed to Monique Muse NP via secure text at 12:50 PM, 05/30/2025. Electronically signed by: Shiraz Zuniga MD 05/30/2025 12:54 PM [facility] Medications Medications Current Medications Acetaminophen (Acetaminophen 325 Mg Tablet) 650 mg PO Q6H PRN PRN Reason: Headache/Pain, Scale 1-10 Last Admin: 05/31/25 16:54 Dose: 650 mg Al Hydroxide/Mg Hydroxide (Magnesium Hydrox/Alum Hydrox 30 Ml Oral.Susp) 30 ml PO Q6H PRN PRN Reason: Heartburn/Nausea Albuterol/Ipratropium (Albuterol/Iprat 2.5/0.5mg 3 Ml Ampul.Neb) 3 ml INHALE Q6H PRN PRN Reason: Shortness of Breath/Wheezing Aspirin (Aspirin Enteric Coated 81 Mg Tablet.Dr) 81 mg PO DAILY [facility] Last Admin: 06/03/25 08:17 Dose: 81 mg Clonazepam (Clonazepam 0.5 Mg Tablet) 0.5 mg PO BID [facility] Last Admin: 06/03/25 20:41 Dose: 0.5 mg Clopidogrel Bisulfate (Clopidogrel Bisulfate 75 Mg Tablet) 75 mg PO DAILY [facility] Last Admin: 06/03/25 08:18 Dose: 75 mg Collagenase (Collagenase Clostridium Hist. 30 Gm Tube) 1 appl TOPICAL DAILY [facility] Last Admin: 06/03/25 09:17 Dose: 1 appl Fluticasone/Umeclidinium/Vilanterol (Fluticasone/Umeclidinium/Vilanterol 100/62.5/25 Blst.W.Dev) 1 puff INHALE RDAILY [facility] Last Admin: 06/03/25 08:20 Dose: 1 puff Fluvoxamine Maleate (Fluvoxamine Maleate 50 Mg Tablet) 75 mg PO BEDTIME [facility] Last Admin: 06/03/25 20:40 Dose: 75 mg Furosemide (Furosemide 40 Mg Tablet) 40 mg PO DAILY [facility] Last Admin: 06/03/25 08:18 Dose: 40 mg Gabapentin (Gabapentin 600 Mg Tablet) 600 mg PO TID [facility] Last Admin: 06/03/25 20:41 Dose: 600 mg Glucose (Glucose Gel 15 Gm Gel..Gram.) 15 gm PO Q15M PRN; Protocol PRN Reason: per Hypoglycemia Standing Ord. Hydroxyzine HCl (Hydroxyzine Hcl 25 Mg Tablet) 25 mg PO Q6H PRN PRN Reason: mild anxiety Insulin Glargine (Insulin Glargine,Hum.Rec.Anlog 100 Unit/Ml 10 Ml Vial) 34 unit SUBCUT DAILY [facility] Last Admin: 06/03/25 08:19 Dose: 34 unit Insulin Human Lispro (Insulin Lispro 100 Unit/Ml 3 Ml Vial) 0 unit SUBCUT QIDACHS [facility]; Protocol Last Admin: 06/03/25 20:49 Dose: 8 unit Isosorbide Mononitrate (Isosorbide Mononitrate 60 Mg Tab.Er.24h) 60 mg PO DAILY [facility] Last Admin: 06/03/25 08:18 Dose: 60 mg Levothyroxine Sodium (Levothyroxine Sodium 150 Mcg Tablet) 150 mcg PO DAILY@0600 [facility] Last Admin: 06/04/25 06:33 Dose: 150 mcg Losartan Potassium (Losartan Potassium 50 Mg Tablet) 100 mg PO DAILY [facility] Last Admin: 06/03/25 08:17 Dose: 100 mg Magnesium Hydroxide (Milk Of Magnesia 30 Ml Oral.Susp) 30 ml PO DAILY PRN PRN Reason: Constipation Magnesium Oxide (Magnesium Oxide 400 Mg Tablet) 400 mg PO DAILY [facility] Last Admin: 06/03/25 08:18 Dose: 400 mg Metoprolol Succinate (Metoprolol Succinate Er 50 Mg Tab.Er.24h) 50 mg PO BEDTIME [facility] Last Admin: 06/03/25 20:41 Dose: 50 mg Mupirocin (Mupirocin 2 % Oint 22 Gm Tube) 1 appl TOPICAL BID PRN PRN Reason: WOUND CARE Nitroglycerin (Nitroglycerin 0.4 Mg Tab.Subl) 0.4 mg SUBLINGUAL Q5M PRN PRN Reason: Chest Pain Oxycodone HCl (Oxycodone Hcl Immed Release 5 Mg Tablet) 5 mg PO Q6H PRN PRN Reason: Pain, Moderate(Pain Scale 4-6) Last Admin: 06/03/25 05:54 Dose: 5 mg Polyethylene Glycol (Polyethylene Glycol 3350 17 Gm Powd.Pack) 17 gm PO DAILY PRN PRN Reason: Constipation Senna (Sennosides 8.6 Mg Tablet) 8.6 mg PO DAILY PRN PRN Reason: Constipation Trazodone HCl (Trazodone Hcl 50 Mg Tablet) 50 mg PO BEDTIME MRX1 PRN PRN Reason: Insomnia Last Admin: 06/03/25 20:40 Dose: 50 mg Allergies Allergies Allergy/AdvReac Type Severity Reaction Status Date / Time divalproex sodium (Depakote) Allergy Unknown rash/hives Verified 05/27/25 12:57 morphine Allergy Unknown rash Verified 05/27/25 12:57 vancomycin Allergy Unknown resp sx Verified 05/27/25 12:57 Assessment & Plan Assessment & Plan (1) MDD (major depressive disorder), recurrent episode, moderate: Status: Acute Code(s): F33.1 - Major depressive disorder, recurrent, moderate (2) Cognitive impairment: Status: Acute Code(s): R41.89 - Other symptoms and signs involving cognitive functions and awareness Plan Mrs. Camacho is a 70 year-old woman with hx of MDD, who self presented [place] [facility] reporting increase depression mood, SI with plan to OD on meds. On the unit, pt reports feeling tired and depressed but denied SI/HI. She seemed more withdrawn and noted right side weakness. Her BP was low. Labs showed elevated Cr from 0.8 to 1.54. Hospitalist consulted. We discussed risks, benefits and alternative treatment options. Pending collateral information from OP prescriber/ family member. PLAN 05/31 continue current medications. pt denies depressed mood, also SI. in bed. can't move much. 06/01 continue tx. 06/02 continue tx. paliperidone was discontinued. pending collateral information from OP provider to get better idea of med trials. 06/03 no si/hi. ambulating with walker, off oxygen. 95 on RA. 06/04 continue tx. no si/hi. stable. pending assessment from respiratory therapy to determine oxigen need. pending MOCA/ACL. Reason for continued inpatient stay Substantial Risk for: inability to function Time Spent With Patient Time: Total time managing care of this patient today ____ minutes.
[2025-06-04] MEDS: Aspirin Enteric Coated 81 MG TABLET.DR PO (08:44)
[2025-06-04] MEDS: Insulin Glargine,Hum.rec.anlog 100 UNIT/ML 10 ML VIAL 34 UNIT SUBCUT (08:45)
[2025-06-04] MEDS: oxyCODONE HCl Immed Release 5 MG TABLET PO ×2 (09:12→15:26)
[2025-06-04 10:00] VITALS: BP 106/55; PULSE 73; RESP 17; O2SAT 93
[2025-06-04] MEDS: Fluticasone/Umeclidinium/Vilanterol 100/62.5/25 BLST.W.DEV 1 PUFF INHALE (10:46)
--- NOTE | 2025-06-04 11:49 | PC.NURSE ---
AM BP meds held d/t decreased BP 113//53 and re-check after breakfast 106/55. Monique Medina NP here and notified.
[2025-06-04 16:09] LABS: Glucose, Whole Blood 161 mg/dL (60-115)
[2025-06-04 16:21] LABS: Glucose, Whole Blood 201 mg/dL (60-115)
[2025-06-04 20:00] VITALS: BP 112/57; PULSE 72; RESP 18; TEMP 36.4; O2SAT 98
[2025-06-04 20:06] LABS: Glucose, Whole Blood 207 mg/dL (60-115)
[2025-06-04 20:36] VITALS: BP 112/55; PULSE 71
[2025-06-04] MEDS: Metoprolol Succinate ER 50 MG TAB.ER.24H PO (20:36)
[2025-06-05 07:16] LABS: Glucose, Whole Blood 171 mg/dL (60-115)
[2025-06-05 08:00] VITALS: BP 136/60; PULSE 67; RESP 18; TEMP 36.3; O2SAT 93
[2025-06-05] MEDS: Fluticasone/Umeclidinium/Vilanterol 100/62.5/25 BLST.W.DEV 1 PUFF INHALE (08:17)
[2025-06-05] MEDS: Insulin Glargine,Hum.rec.anlog 100 UNIT/ML 10 ML VIAL 34 UNIT SUBCUT (08:18)
[2025-06-05 08:19] VITALS: BP 136/60
[2025-06-05] MEDS: Aspirin Enteric Coated 81 MG TABLET.DR PO (08:19)
[2025-06-05 08:20] VITALS: BP 136/60
[2025-06-05] MEDS: oxyCODONE HCl Immed Release 5 MG TABLET PO (08:25)
[2025-06-05 11:08] LABS: Glucose, Whole Blood 232 mg/dL (60-115)
[2025-06-05 16:25] LABS: Glucose, Whole Blood 224 mg/dL (60-115)
[2025-06-05 20:00] VITALS: BP 109/55; PULSE 69; RESP 16; TEMP 36.2; O2SAT 92
[2025-06-05 20:18] VITALS: BP 109/55; PULSE 69
[2025-06-05] MEDS: Metoprolol Succinate ER 50 MG TAB.ER.24H PO (20:18)
--- NOTE | 2025-06-05 20:31 | P.PNPSI_ITS ---
Subjective Subjective Date of Service: 06/05/25 Reason For Visit: SI Subjective Notes: Conditional Voluntary Interim History: Pt continues to denied SI/HI. She reports her mood is much better. Does not remember why she is in the hospital. taking medications as prescribed. no aggression towards self or others. much more alert and ambulatory. Mental Status Exam Mental Status Exam Narrative: Appearance: wearing hospital gown, oxygen cannula on, seems somewhat SOB, lip breathing, in NAD Behavior: some difficulty engaging in interview Psychomotor: some retardation noted. Speech: mostly clear, normal rate/rhythm, very soft volume, minimally spontaneous TP: mostly linear TC: feeling better, hoping to go home soon. Mood: good Affect: brighter SI: denies HI: none Insight/judgment: poor x 2. Memory/cog: alert, oriented to place, month, year. Pending MOCA/ACL Diagnostics Vital Signs (24Hr): Vital Signs - 24 hr 06/04/25 20:36 06/05/25 08:00 06/05/25 08:19 Temperature 97.4 F Pulse Rate 71 67 Respiratory Rate 18 Blood Pressure 112/55 L 136/60 136/60 Pulse Oximetry 93 Oxygen Delivery Method Room Air 06/05/25 08:20 06/05/25 08:20 06/05/25 20:18 Temperature Pulse Rate 69 Respiratory Rate Blood Pressure 136/60 136/60 109/55 L Pulse Oximetry Oxygen Delivery Method BMI result Body Mass Index 31.2 Labs 05/30/25 14:09 06/03/25 07:10 Labs: Laboratory Results - last 48 hr 06/03/25 06/04/25 06/04/25 20:43 06:43 11:39 POC Glucose 237 H 120 H 161 H 06/04/25 06/04/25 06/05/25 16:17 20:03 06:47 POC Glucose 201 H 207 H 171 H 06/05/25 06/05/25 11:04 16:18 POC Glucose 232 H 224 H Imaging Radiology Impressions: ITS Impressions Head CT 05/30/25 12:33 IMPRESSION: No acute intracranial abnormality. No CT evidence of acute territorial infarct. This critical result was relayed to Monique Muse NP via secure text at 12:50 PM, 05/30/2025. Electronically signed by: Shiraz Zuniga MD 05/30/2025 12:54 PM [facility] Medications Medications Current Medications Acetaminophen (Acetaminophen 325 Mg Tablet) 650 mg PO Q6H PRN PRN Reason: Headache/Pain, Scale 1-10 Last Admin: 05/31/25 16:54 Dose: 650 mg Al Hydroxide/Mg Hydroxide (Magnesium Hydrox/Alum Hydrox 30 Ml Oral.Susp) 30 ml PO Q6H PRN PRN Reason: Heartburn/Nausea Albuterol/Ipratropium (Albuterol/Iprat 2.5/0.5mg 3 Ml Ampul.Neb) 3 ml INHALE Q6H PRN PRN Reason: Shortness of Breath/Wheezing Aspirin (Aspirin Enteric Coated 81 Mg Tablet.Dr) 81 mg PO DAILY [facility] Last Admin: 06/05/25 08:19 Dose: 81 mg Clonazepam (Clonazepam 0.5 Mg Tablet) 0.5 mg PO BID [facility] Last Admin: 06/05/25 20:18 Dose: 0.5 mg Clopidogrel Bisulfate (Clopidogrel Bisulfate 75 Mg Tablet) 75 mg PO DAILY [facility] Last Admin: 06/05/25 08:19 Dose: 75 mg Collagenase (Collagenase Clostridium Hist. 30 Gm Tube) 1 appl TOPICAL DAILY [facility] Last Admin: 06/05/25 11:16 Dose: Not Given Fluticasone/Umeclidinium/Vilanterol (Fluticasone/Umeclidinium/Vilanterol 100/62.5/25 Blst.W.Dev) 1 puff INHALE RDAILY [facility] Last Admin: 06/05/25 08:17 Dose: 1 puff Fluvoxamine Maleate (Fluvoxamine Maleate 50 Mg Tablet) 75 mg PO BEDTIME [facility] Last Admin: 06/04/25 20:36 Dose: 75 mg Furosemide (Furosemide 40 Mg Tablet) 40 mg PO DAILY [facility] Last Admin: 06/05/25 08:20 Dose: 40 mg Gabapentin (Gabapentin 600 Mg Tablet) 600 mg PO TID [facility] Last Admin: 06/05/25 20:19 Dose: 600 mg Glucose (Glucose Gel 15 Gm Gel..Gram.) 15 gm PO Q15M PRN; Protocol PRN Reason: per Hypoglycemia Standing Ord. Hydroxyzine HCl (Hydroxyzine Hcl 25 Mg Tablet) 25 mg PO Q6H PRN PRN Reason: mild anxiety Last Admin: 06/04/25 18:49 Dose: 25 mg Insulin Glargine (Insulin Glargine,Hum.Rec.Anlog 100 Unit/Ml 10 Ml Vial) 34 unit SUBCUT DAILY [facility] Last Admin: 06/05/25 08:18 Dose: 34 unit Insulin Human Lispro (Insulin Lispro 100 Unit/Ml 3 Ml Vial) 0 unit SUBCUT QIDACHS [facility]; Protocol Last Admin: 06/05/25 16:32 Dose: 4 unit Isosorbide Mononitrate (Isosorbide Mononitrate 60 Mg Tab.Er.24h) 60 mg PO DAILY [facility] Last Admin: 06/05/25 08:19 Dose: 60 mg Levothyroxine Sodium (Levothyroxine Sodium 150 Mcg Tablet) 150 mcg PO DAILY@0600 [facility] Last Admin: 06/05/25 06:47 Dose: 150 mcg Losartan Potassium (Losartan Potassium 50 Mg Tablet) 100 mg PO DAILY [facility] Last Admin: 06/05/25 08:20 Dose: 100 mg Magnesium Hydroxide (Milk Of Magnesia 30 Ml Oral.Susp) 30 ml PO DAILY PRN PRN Reason: Constipation Magnesium Oxide (Magnesium Oxide 400 Mg Tablet) 400 mg PO DAILY [facility] Last Admin: 06/05/25 08:19 Dose: 400 mg Metoprolol Succinate (Metoprolol Succinate Er 50 Mg Tab.Er.24h) 50 mg PO BEDTIME [facility] Last Admin: 06/05/25 20:18 Dose: 50 mg Mupirocin (Mupirocin 2 % Oint 22 Gm Tube) 1 appl TOPICAL BID PRN PRN Reason: WOUND CARE Nitroglycerin (Nitroglycerin 0.4 Mg Tab.Subl) 0.4 mg SUBLINGUAL Q5M PRN PRN Reason: Chest Pain Oxycodone HCl (Oxycodone Hcl Immed Release 5 Mg Tablet) 5 mg PO Q6H PRN PRN Reason: Pain, Moderate(Pain Scale 4-6) Last Admin: 06/05/25 08:25 Dose: 5 mg Polyethylene Glycol (Polyethylene Glycol 3350 17 Gm Powd.Pack) 17 gm PO DAILY PRN PRN Reason: Constipation Senna (Sennosides 8.6 Mg Tablet) 8.6 mg PO DAILY PRN PRN Reason: Constipation Trazodone HCl (Trazodone Hcl 50 Mg Tablet) 50 mg PO BEDTIME MRX1 PRN PRN Reason: Insomnia Last Admin: 06/04/25 20:38 Dose: 50 mg Allergies Allergies Allergy/AdvReac Type Severity Reaction Status Date / Time divalproex sodium (Depakote) Allergy Unknown rash/hives Verified 05/27/25 12:57 morphine Allergy Unknown rash Verified 05/27/25 12:57 vancomycin Allergy Unknown resp sx Verified 05/27/25 12:57 Assessment & Plan Assessment & Plan (1) MDD (major depressive disorder), recurrent episode, moderate: Status: Acute Code(s): F33.1 - Major depressive disorder, recurrent, moderate (2) Cognitive impairment: Status: Acute Code(s): R41.89 - Other symptoms and signs involving cognitive functions and awareness Plan Mrs. Camacho is a 70 year-old woman with hx of MDD, who self presented to [facility] reporting increase depression mood, SI with plan to OD on meds. On the unit, pt reports feeling tired and depressed but denied SI/HI. She seemed more withdrawn and noted right side weakness. Her BP was low. Labs showed elevated Cr from 0.8 to 1.54. Hospitalist consulted. We discussed risks, benefits and alternative treatment options. Pending collateral information from OP prescriber/ family member. PLAN 05/31 continue current medications. pt denies depressed mood, also SI. in bed. can't move much. 06/01 continue tx. 06/02 continue tx. paliperidone was discontinued. pending collateral information from OP provider to get better idea of med trials. 06/03 no si/hi. ambulating with walker, off oxygen. 95 on RA. 06/04 continue tx. no si/hi. stable. pending assessment from respiratory therapy to determine oxigen need. pending MOCA/ACL. 06/05 continue tx. pending respiratory therapy assessment. and moca. using one or two oxycodone 5mg a day. it may be good to schedule BID and add one prn. but pt tolerating coming off oxy ER, in fact tox was negative and when restarted was very lethargic. Reason for continued inpatient stay Substantial Risk for: inability to function Time Spent With Patient Time: Total time managing care of this patient today ____ minutes.
[2025-06-06 00:08] LABS: Glucose, Whole Blood 251 mg/dL (60-115)
[2025-06-06 06:35] LABS: Glucose, Whole Blood 139 mg/dL (60-115)
--- NOTE | 2025-06-06 07:54 | P.PNPSI_ITS ---
Subjective Subjective Date of Service: 06/06/25 Reason For Visit: SI Interim History: patient seen for coverage. In DR, eating, c/o food texture no other complaints Side effects from medications: No (none reported today) Review of Systems Review of Systems Denies any shortness of breath, chest pain, headaches, dysuria, abdominal pain or discomfort, nausea, vomiting or diarrhea. Denies chills. Yes all other systems are reviewed and are negative Mental Status Exam Mental Status Exam Narrative: Appearance: wearing casual clothing, in DR, calm, in NAD Behavior: cooperative and in good spirits overall Psychomotor: no significant retardation noted. Speech: mostly clear, normal rate/rhythm, soft volume, spontaneous TP: mostly linear TC: feeling better, hoping to go home soon, future oriented. Mood: good Affect: euthymic SI: denies HI: none Insight/judgment: poor x 2. Memory/cog: alert, oriented to place, month, year. Pending MOCA/ACL Diagnostics Vital Signs (24Hr): Vital Signs - 24 hr 06/05/25 08:00 06/05/25 08:19 06/05/25 08:20 Temperature 97.4 F Pulse Rate 67 Respiratory Rate 18 Blood Pressure 136/60 136/60 136/60 Pulse Oximetry 93 Oxygen Delivery Method Room Air Oxygen Flow Rate 06/05/25 08:20 06/05/25 20:00 06/05/25 20:18 Temperature 97.2 F Pulse Rate 69 69 Respiratory Rate 16 Blood Pressure 136/60 109/55 L 109/55 L Pulse Oximetry 92 Oxygen Delivery Method Nasal Cannula Oxygen Flow Rate 2 BMI result Body Mass Index 31.2 Labs 05/30/25 14:09 06/03/25 07:10 Labs: Laboratory Results - last 48 hr 06/04/25 06/04/25 06/04/25 11:39 16:17 20:03 POC Glucose 161 H 201 H 207 H 06/05/25 06/05/25 06/05/25 06:47 11:04 16:18 POC Glucose 171 H 232 H 224 H 06/05/25 06/06/25 20:18 06:22 POC Glucose 251 H 139 H Imaging Radiology Impressions: ITS Impressions Head CT 05/30/25 12:33 IMPRESSION: No acute intracranial abnormality. No CT evidence of acute territorial infarct. This critical result was relayed to Monique Muse NP via secure text at 12:50 PM, 05/30/2025. Electronically signed by: Shiraz Zuniga MD 05/30/2025 12:54 PM [facility] Medications Medications Current Medications Acetaminophen (Acetaminophen 325 Mg Tablet) 650 mg PO Q6H PRN PRN Reason: Headache/Pain, Scale 1-10 Last Admin: 05/31/25 16:54 Dose: 650 mg Al Hydroxide/Mg Hydroxide (Magnesium Hydrox/Alum Hydrox 30 Ml Oral.Susp) 30 ml PO Q6H PRN PRN Reason: Heartburn/Nausea Albuterol/Ipratropium (Albuterol/Iprat 2.5/0.5mg 3 Ml Ampul.Neb) 3 ml INHALE Q6H PRN PRN Reason: Shortness of Breath/Wheezing Aspirin (Aspirin Enteric Coated 81 Mg Tablet.) 81 mg PO DAILY [facility] Last Admin: 06/05/25 08:19 Dose: 81 mg Clonazepam (Clonazepam 0.5 Mg Tablet) 0.5 mg PO BID [facility] Last Admin: 06/05/25 20:18 Dose: 0.5 mg Clopidogrel Bisulfate (Clopidogrel Bisulfate 75 Mg Tablet) 75 mg PO DAILY [facility] Last Admin: 06/05/25 08:19 Dose: 75 mg Collagenase (Collagenase Clostridium Hist. 30 Gm Tube) 1 appl TOPICAL DAILY [facility] Last Admin: 06/05/25 11:16 Dose: Not Given Fluticasone/Umeclidinium/Vilanterol (Fluticasone/Umeclidinium/Vilanterol 100/62.5/25 Blst.W.Dev) 1 puff INHALE RDAILY [facility] Last Admin: 06/05/25 08:17 Dose: 1 puff Fluvoxamine Maleate (Fluvoxamine Maleate 50 Mg Tablet) 75 mg PO BEDTIME [facility] Last Admin: 06/05/25 22:22 Dose: 75 mg Furosemide (Furosemide 40 Mg Tablet) 40 mg PO DAILY [facility] Last Admin: 06/05/25 08:20 Dose: 40 mg Gabapentin (Gabapentin 600 Mg Tablet) 600 mg PO TID [facility] Last Admin: 06/05/25 20:19 Dose: 600 mg Glucose (Glucose Gel 15 Gm Gel..Gram.) 15 gm PO Q15M PRN; Protocol PRN Reason: per Hypoglycemia Standing Ord. Hydroxyzine HCl (Hydroxyzine Hcl 25 Mg Tablet) 25 mg PO Q6H PRN PRN Reason: mild anxiety Last Admin: 06/04/25 18:49 Dose: 25 mg Insulin Glargine (Insulin Glargine,Hum.Rec.Anlog 100 Unit/Ml 10 Ml Vial) 34 unit SUBCUT DAILY [facility] Last Admin: 06/05/25 08:18 Dose: 34 unit Insulin Human Lispro (Insulin Lispro 100 Unit/Ml 3 Ml Vial) 0 unit SUBCUT QIDACHS [facility]; Protocol Last Admin: 06/06/25 07:44 Dose: Not Given Isosorbide Mononitrate (Isosorbide Mononitrate 60 Mg Tab.Er.24h) 60 mg PO DAILY [facility] Last Admin: 06/05/25 08:19 Dose: 60 mg Levothyroxine Sodium (Levothyroxine Sodium 150 Mcg Tablet) 150 mcg PO DAILY@0600 [facility] Last Admin: 06/06/25 06:18 Dose: 150 mcg Losartan Potassium (Losartan Potassium 50 Mg Tablet) 100 mg PO DAILY [facility] Last Admin: 06/05/25 08:20 Dose: 100 mg Magnesium Hydroxide (Milk Of Magnesia 30 Ml Oral.Susp) 30 ml PO DAILY PRN PRN Reason: Constipation Magnesium Oxide (Magnesium Oxide 400 Mg Tablet) 400 mg PO DAILY [facility] Last Admin: 06/05/25 08:19 Dose: 400 mg Metoprolol Succinate (Metoprolol Succinate Er 50 Mg Tab.Er.24h) 50 mg PO BEDTIME [facility] Last Admin: 06/05/25 20:18 Dose: 50 mg Mupirocin (Mupirocin 2 % Oint 22 Gm Tube) 1 appl TOPICAL BID PRN PRN Reason: WOUND CARE Nitroglycerin (Nitroglycerin 0.4 Mg Tab.Subl) 0.4 mg SUBLINGUAL Q5M PRN PRN Reason: Chest Pain Oxycodone HCl (Oxycodone Hcl Immed Release 5 Mg Tablet) 5 mg PO Q6H PRN PRN Reason: Pain, Moderate(Pain Scale 4-6) Last Admin: 06/05/25 08:25 Dose: 5 mg Polyethylene Glycol (Polyethylene Glycol 3350 17 Gm Powd.Pack) 17 gm PO DAILY PRN PRN Reason: Constipation Senna (Sennosides 8.6 Mg Tablet) 8.6 mg PO DAILY PRN PRN Reason: Constipation Trazodone HCl (Trazodone Hcl 50 Mg Tablet) 50 mg PO BEDTIME MRX1 PRN PRN Reason: Insomnia Last Admin: 06/04/25 20:38 Dose: 50 mg Allergies Allergies Allergy/AdvReac Type Severity Reaction Status Date / Time divalproex sodium (Depakote) Allergy Unknown rash/hives Verified 05/27/25 12:57 morphine Allergy Unknown rash Verified 05/27/25 12:57 vancomycin Allergy Unknown resp sx Verified 05/27/25 12:57 Assessment & Plan Assessment & Plan (1) MDD (major depressive disorder), recurrent episode, moderate: Status: Acute Code(s): F33.1 - Major depressive disorder, recurrent, moderate (2) Cognitive impairment: Status: Acute Code(s): R41.89 - Other symptoms and signs involving cognitive functions and awareness Plan Mrs. Camacho is a 70 year-old woman with hx of MDD, who self presented to [facility] ED reporting increase depression mood, SI with plan to OD on meds. On the unit, pt reports feeling tired and depressed but denied SI/HI. She seemed more withdrawn and noted right side weakness. Her BP was low. Labs showed elevated Cr from 0.8 to 1.54. Hospitalist consulted. We discussed risks, benefits and alternative treatment options. Pending collateral information from OP prescriber/ family member. PLAN 05/31 continue current medications. pt denies depressed mood, also SI. in bed. can't move much. 06/01 continue tx. 06/02 continue tx. paliperidone was discontinued. pending collateral information from OP provider to get better idea of med trials. 06/03 no si/hi. ambulating with walker, off oxygen. 95 on RA. 06/04 continue tx. no si/hi. stable. pending assessment from respiratory therapy to determine oxigen need. pending MOCA/ACL. 06/05 continue tx. pending respiratory therapy assessment. and moca. using one or two oxycodone 5mg a day. it may be good to schedule BID and add one prn. but pt tolerating coming off oxy ER, in fact tox was negative and when restarted was very lethargic. 06/06 Continue tx per primary provider/team Reason for continued inpatient stay Substantial Risk for: other Time Spent With Patient Time: Total time managing care of this patient today ___25_ minutes.
[2025-06-06 08:00] VITALS: BP 107/50; PULSE 69; TEMP 36.7; O2SAT 99
[2025-06-06] MEDS: Fluticasone/Umeclidinium/Vilanterol 100/62.5/25 BLST.W.DEV 1 PUFF INHALE (08:43)
[2025-06-06] MEDS: Aspirin Enteric Coated 81 MG TABLET.DR PO (08:44)
[2025-06-06] MEDS: Insulin Glargine,Hum.rec.anlog 100 UNIT/ML 10 ML VIAL 34 UNIT SUBCUT (08:44)
[2025-06-06] MEDS: oxyCODONE HCl Immed Release 5 MG TABLET PO ×3 (09:17→20:53)
[2025-06-06 11:10] LABS: Glucose, Whole Blood 189 mg/dL (60-115)
--- NOTE | 2025-06-06 12:25 | MHC.SL.SWA ---
Speech Pathologist Impression: Mild oral dysphagia d/t missing dentition; however, pt exhibits adequate oropharyngeal coordination in absence of teeth Risk of Aspiration Due to: Dysphasia Diet Status: Recommend UPGRADE to REGULAR, THIN Liquids. Trial smaller pills with liquids and larger pills WHOLE in puree. Liquid Consistency and Strategies for Safe Swallow: Liquid Intake Recommendation: Thin Liquid Intake Strategies: Solid Food Consistency: Dietary Recommendations: Regular Additional Modifications to Solid Foods: Oral Medication Intake: Whole with Liquid Please contact the pharmacy regarding appropriate crushable or liquid drug formulations that are available whenever modified delivery is recommended. Compensatory Strategies and Precautions to be Taken for Safe Swallow: Sitting Upright (90 deg) Liquids from Cup Liquids from Straw Small Bites and Sips Alternate Liquids/Solids Rate of Ingestion Change Supervision While Eating and Drinking for Safe Swallow: Intermittent Supervision Foods to Avoid: Swallowing Recommended Treatments: Compens. Strategy Educat. Recommendation for Speech: Inpatient Speech Therapy Comment: Pt seen for dysphagia treatment, pt alert, conversant, c/o food, requesting 'more human food'. Pt in agreement with COMPUTER PATTERNMAKER assessing tolerance of regular solids for diet upgrade. Oropharyngeal coordination WNL, though pt is edentulous. No overt s/s of aspiration with regular solids; pt pacing adequately, alternating consistencies and occasionally speaking during meal after swallow. No vocal wetness. Recc upgrade to REGULAR consistency, thin liquids. Treating geripsych physicians notified of diet upgrade via secure text, COMPUTER PATTERNMAKER updated order today. Dysphagia followup as indicated. Frequency/Duration: M-F daily Date Range for Service Req: Timeline to reassess: Linen Folder Clinican/Clinical Fellow: No Supervisory Statement: I have reviewed and agree with the student/clinical fellow's documentation: N/A Speech Language Pathologist: Hayde More M.S., [facility]-COMPUTER PATTERNMAKER
[2025-06-06 16:17] LABS: Glucose, Whole Blood 240 mg/dL (60-115)
--- NOTE | 2025-06-06 17:30 | PC.NURSE ---
Dressing to L heel changed. Patient tolerated well. No s/s of infection noted.
[2025-06-06 20:46] VITALS: BP 144/64; PULSE 69
[2025-06-06] MEDS: Metoprolol Succinate ER 50 MG TAB.ER.24H PO (20:46)
[2025-06-06 21:00] VITALS: BP 144/64; PULSE 69; RESP 16; TEMP 36.3; O2SAT 96
[2025-06-06 21:18] LABS: Glucose, Whole Blood 225 mg/dL (60-115)
[2025-06-07 06:32] LABS: Glucose, Whole Blood 230 mg/dL (60-115)
[2025-06-07 07:55] VITALS: BP 115/62; PULSE 70; RESP 18; TEMP 36.9; O2SAT 93
[2025-06-07] MEDS: Insulin Glargine,Hum.rec.anlog 100 UNIT/ML 10 ML VIAL 34 UNIT SUBCUT (08:00)
[2025-06-07] MEDS: Aspirin Enteric Coated 81 MG TABLET.DR PO (08:01)
[2025-06-07] MEDS: Fluticasone/Umeclidinium/Vilanterol 100/62.5/25 BLST.W.DEV 1 PUFF INHALE (08:02)
[2025-06-07 09:13] LABS: Anion Gap 10 (12-20); Blood Urea Nitrogen 33 mg/dL (9-16); Calcium 9.0 mg/dL (8.4-10.2); Carbon Dioxide 35 mmol/L (22-29); Chloride 101 mmol/L (96-108); Creatinine Clr Calc Pharmacy 36.6; Estimated Glomerular Filt Rate 36; Potassium 5.6 mmol/L (3.3-5.1); Sodium 140 mmol/L (135-145)
--- NOTE | 2025-06-07 09:55 | HO.PM.IMPN ---
Subjective Subjective Date of Service: 06/07/25 Interval History: Patient is seen for acute kidney injury. Patient presented with initial creatinine of 1.51 which increased to 1 0.71, she received IV fluids in the stabilized. Creatinine again elevated to 1.44. Per nursing notes patient is eating 100% of her meals. Drinking adequate fluids. Patient is out of bed, reports that she is feeling better, less weak. Her speech is clear. Denies any shortness of breath, dizziness, lightheadedness abdominal pain or any other concerning symptoms. Review of Systems Denies any shortness of breath, chest pain, headaches, dysuria, abdominal pain or discomfort, nausea, vomiting or diarrhea. Denies fever or chills. Physical Exam Exam: Exam: Alert and oriented X1, calm and cooperative. Answers questions. Neuro: CN II-X11 intact, no deficits, visual acuity intact. Speech clear. Cardiac: S1 S2 RRR, No ectopy Pulmonary: lungs clear to auscultation, No increased WOB. Abdominal: BS active in all 4 quadrants, no guarding or tenderness. Obese abdomen MSK: Strength 5/5 upper and lower extremities. Moves all extremities : Deferred Extremities: No edema in lower extremities Psych: Mood stable, Quiet and cooperative. Skin: Warm and dry, Intact Vital Signs: Vital Signs: Last Vital Signs Temp 98.4 F 06/07/25 07:55 Pulse 70 06/07/25 07:55 Resp 18 06/07/25 07:55 BP 115/62 06/07/25 07:55 Pulse Ox 93 06/07/25 07:55 O2 Del Method Room Air 06/07/25 07:55 O2 Flow Rate 2 06/05/25 20:00 Oxygen Flow Rate 3 05/27/25 12:55 BMI result Body Mass Index 31.2 Objective Data Active Medications Acetaminophen (Acetaminophen 325 Mg Tablet) 650 mg PO Q6H PRN PRN Reason: Headache/Pain, Scale 1-10 Last Admin: 05/31/25 16:54 Dose: 650 mg Documented By: EMILIE Al Hydroxide/Mg Hydroxide (Magnesium Hydrox/Alum Hydrox 30 Ml Oral.Susp) 30 ml PO Q6H PRN PRN Reason: Heartburn/Nausea Albuterol/Ipratropium (Albuterol/Iprat 2.5/0.5mg 3 Ml Ampul.Neb) 3 ml INHALE Q6H PRN PRN Reason: Shortness of Breath/Wheezing Aspirin (Aspirin Enteric Coated 81 Mg Tablet.) 81 mg PO DAILY PENDING SALE TO [facility] Last Admin: 06/07/25 08:01 Dose: 81 mg Documented By: HONORIO Clonazepam (Clonazepam 0.5 Mg Tablet) 0.5 mg PO BID PENDING SALE TO [facility] Last Admin: 06/07/25 08:01 Dose: 0.5 mg Documented By: HONORIO Clopidogrel Bisulfate (Clopidogrel Bisulfate 75 Mg Tablet) 75 mg PO DAILY PENDING SALE TO [facility] Last Admin: 06/07/25 08:01 Dose: 75 mg Documented By: HONORIO Collagenase (Collagenase Clostridium Hist. 30 Gm Tube) 1 appl TOPICAL DAILY PENDING SALE TO [facility] Last Admin: 06/07/25 08:07 Dose: Not Given Documented By: HONORIO Non-Admin Reason: Patient Refused Fluticasone/Umeclidinium/Vilanterol (Fluticasone/Umeclidinium/Vilanterol 100/62.5/25 Blst.W.Dev) 1 puff INHALE RDAILY PENDING SALE TO [facility] Last Admin: 06/07/25 08:02 Dose: 1 puff Documented By: HONORIO Fluvoxamine Maleate (Fluvoxamine Maleate 50 Mg Tablet) 75 mg PO BEDTIME PENDING SALE TO [facility] Last Admin: 06/06/25 20:47 Dose: 75 mg Documented By: ETIENNE Furosemide (Furosemide 40 Mg Tablet) 40 mg PO DAILY PENDING SALE TO [facility] On Hold: 06/07/25 09:49 Last Admin: 06/07/25 08:01 Dose: 40 mg Documented By: HONORIO Gabapentin (Gabapentin 600 Mg Tablet) 600 mg PO TID PENDING SALE TO [facility] Last Admin: 06/07/25 08:01 Dose: 600 mg Documented By: HONORIO Glucose (Glucose Gel 15 Gm Gel..Gram.) 15 gm PO Q15M PRN; Protocol PRN Reason: per Hypoglycemia Standing Ord. Hydroxyzine HCl (Hydroxyzine Hcl 25 Mg Tablet) 25 mg PO Q6H PRN PRN Reason: mild anxiety Last Admin: 06/04/25 18:49 Dose: 25 mg Documented By: KATTY Insulin Glargine (Insulin Glargine,Hum.Rec.Anlog 100 Unit/Ml 10 Ml Vial) 34 unit SUBCUT DAILY PENDING SALE TO [facility] Last Admin: 06/07/25 08:00 Dose: 34 unit Documented By: HONORIO Insulin Human Lispro (Insulin Lispro 100 Unit/Ml 3 Ml Vial) 0 unit SUBCUT QIDACHS PENDING SALE TO [facility]; Protocol Last Admin: 06/07/25 07:56 Dose: 4 unit Documented By: HONORIO Isosorbide Mononitrate (Isosorbide Mononitrate 60 Mg Tab.Er.24h) 60 mg PO DAILY PENDING SALE TO [facility] Last Admin: 06/07/25 08:01 Dose: 60 mg Documented By: HONORIO Levothyroxine Sodium (Levothyroxine Sodium 150 Mcg Tablet) 150 mcg PO DAILY@0600 PENDING SALE TO [facility] Last Admin: 06/07/25 06:05 Dose: 150 mcg Documented By: ETIENNE Losartan Potassium (Losartan Potassium 50 Mg Tablet) 100 mg PO DAILY PENDING SALE TO [facility] On Hold: 06/07/25 09:49 Last Admin: 06/07/25 08:01 Dose: 100 mg Documented By: HONORIO Magnesium Hydroxide (Milk Of Magnesia 30 Ml Oral.Susp) 30 ml PO DAILY PRN PRN Reason: Constipation Magnesium Oxide (Magnesium Oxide 400 Mg Tablet) 400 mg PO DAILY PENDING SALE TO [facility] Last Admin: 06/07/25 08:01 Dose: 400 mg Documented By: HONORIO Metoprolol Succinate (Metoprolol Succinate Er 50 Mg Tab.Er.24h) 50 mg PO BEDTIME PENDING SALE TO [facility] Last Admin: 06/06/25 20:46 Dose: 50 mg Documented By: ETIENNE Mupirocin (Mupirocin 2 % Oint 22 Gm Tube) 1 appl TOPICAL BID PRN PRN Reason: WOUND CARE Nitroglycerin (Nitroglycerin 0.4 Mg Tab.Subl) 0.4 mg SUBLINGUAL Q5M PRN PRN Reason: Chest Pain Oxycodone HCl (Oxycodone Hcl Immed Release 5 Mg Tablet) 5 mg PO Q6H PRN PRN Reason: Pain, Moderate(Pain Scale 4-6) Last Admin: 06/06/25 20:53 Dose: 5 mg Documented By: ETIENNE Polyethylene Glycol (Polyethylene Glycol 3350 17 Gm Powd.Pack) 17 gm PO DAILY PRN PRN Reason: Constipation Senna (Sennosides 8.6 Mg Tablet) 8.6 mg PO DAILY PRN PRN Reason: Constipation Trazodone HCl (Trazodone Hcl 50 Mg Tablet) 50 mg PO BEDTIME MRX1 PRN PRN Reason: Insomnia Last Admin: 06/04/25 20:38 Dose: 50 mg Documented By: KERRIE Labs 05/30/25 14:09 06/07/25 10:14 Labs: Laboratory Results - last 24 hr 06/06/25 06/06/25 06/06/25 11:06 16:14 21:15 Anion Gap Estim Creat Clear Calc Estimated GFR POC Glucose 189 H 240 H 225 H Random Glucose Calcium Total Creatine Kinase 06/07/25 06/07/25 06:27 07:36 Anion Gap 10 L Estim Creat Clear Calc 36.6 Estimated GFR 36 POC Glucose 230 H Random Glucose 238 H Calcium 9.0 Total Creatine Kinase 87 Assessment and Plan (1) ARRON (acute kidney injury): Status: Acute Plan 70-year-old female presented from assisted living facility with past medical history as listed below. Admitted for stabilization, presented to the unit with questionable stroke-like symptoms. Stroke alert was called. CT head was negative. Depression/anxiety Treatment per psychiatric team Acute kidney injury: Baseline creatinine around 0.8-1 mg/dL, currently increased to 1.44 in the setting of metabolic alkalosis and hyperkalemia possibly suggesting poor distal tubular flow due to volume depletion. Normal saline at 75 cc an hour for 1 L. Agree with holding off on lasix and losartan. Since the patient is high risk of repeated ARRON due to volume issues, can discontinue losartan and change to amlodipine 10mg daily. Check urinalysis, urine sodium, urine osmoles, urine eosinophils Appears euvolemic on exam Nephrology following appreciate input. Avoid nephrotoxic agents, contrast, NSAIDs, OSMANY inhibitors Closely monitor I's and Os Hyperkalemia: Possibly secondary to poor distal tubular flow Correct with IV fluids Daily BMP Insulin-dependent type 2 diabetes with neuropathy Increase Lantus to 34 units daily, continue lispro sliding scale Continue gabapentin Hga1c 10 COPD Continue Trelegy Ellipta No acute exacerbation Baseline home O2 2-4 L a minute Hypertension/hyperlipidemia/chronic systolic diastolic heart failure/CAD Continue Imdur, Toprol and hold Lasix DC losartan, restart amlodipine if blood pressure becomes elevated. Lipitor DC due to myositis, patient will need outpatient follow up question Repatha Continue Plavix and aspirin Hypothyroidism Continue levothyroxine Chronic back pain on chronic opiate therapy Avoid chronic opiates which may be contributing to her mental status changes Thank you for allowing me to participate in the care of this patient. Will follow with you, please notify medical provider with any changes in condition or concerns. Quality Stroke Does the patient have a stroke diagnosis?: No VTE Prior VTE?: No VTE Risk Level:: Medical - low VTE Device Contraindication: Treatment Not Indicated VTE Drug Contraindication: N/A - Med Ordered
--- NOTE | 2025-06-07 10:27 | PC.RT ---
pt currently has home 02. She now is on room air. Therefore no home 02 evalution is needed.
[2025-06-07 10:32] LABS: Potassium 5.1 mmol/L (3.3-5.1)
[2025-06-07 10:47] LABS: Parathyroid Hormone Intact 31.8 pg/mL (8.7-77.1)
[2025-06-07 11:27] LABS: Glucose, Whole Blood 202 mg/dL (60-115)
--- NOTE | 2025-06-07 13:33 | MHC.SL.SWA ---
Speech Pathologist Impression: WFL Risk of Aspiration Due to: Dysphasia Diet Status: Recommend continue REGULAR/THIN Liquid Consistency and Strategies for Safe Swallow: Liquid Intake Recommendation: Thin Liquid Intake Strategies: Solid Food Consistency: Dietary Recommendations: Regular Additional Modifications to Solid Foods: Oral Medication Intake: Whole with Liquid Please contact the pharmacy regarding appropriate crushable or liquid drug formulations that are available whenever modified delivery is recommended. Compensatory Strategies and Precautions to be Taken for Safe Swallow: Sitting Upright (90 deg) Liquids from Cup Liquids from Straw Small Bites and Sips Alternate Liquids/Solids Rate of Ingestion Change Supervision While Eating and Drinking for Safe Swallow: Intermittent Supervision Foods to Avoid: Swallowing Recommended Treatments: Compens. Strategy Educat. Recommendation for Speech: DISCHARGE Comment: Patient with no swallowing concerns and is knowledgeable in her mastication abilities. Recommend CONTINUE with REGULAR solids, THIN liquids, medication WHOLE with liquids. Patient at baseline, no further CREDIT RISK OFFICER services warranted. RN with no concerns and communicated with in-person. Treating SCIENTIFIC ARTIST updated via secure chat. Patient in agreement with discharge. Please re-consult if any concerns. Frequency/Duration: M-F daily Date Range for Service Req: Timeline to reassess: Pediatric Lpn Clinican/Clinical Fellow: No Supervisory Statement: I have reviewed and agree with the student/clinical fellow's documentation: N/A Speech Language Pathologist: Rhonda Power M.A., [facility]-CREDIT RISK OFFICER
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
[2025-06-07 16:09] LABS: Glucose, Whole Blood 229 mg/dL (60-115)
[2025-06-07 16:55] LABS: Appearance Urine Clear; Glucose Urine UA 100 mg/dL (Negative); PH 7.0 (5.0-9.0); Specific Gravity - Urine 1.010 (1.005-1.025)
--- NOTE | 2025-06-07 17:03 | HO.PSYCHPN ---
Subjective Subjective Date of Service: 06/07/25 Reason For Visit: SI Subjective Notes: Conditional Voluntary Interim History: Pt seen by hospitalist, followed up with labs BUN 44/Cr 1.44. Given IVF, hyperkalemia 5.6. repeat improved 5.1. Pt reports feeling good in terms of depression. She has denied SI/HI since admission. No psychosis or delusions. hypotension, lasix has been held. Planning for d/c tomorrow. Medication Compliance: Yes Mental Status Exam Mental Status Exam Narrative: Appearance: wearing casual clothing, in DR, calm, in NAD Behavior: cooperative and in good spirits overall Psychomotor: no significant retardation noted. Speech: mostly clear, normal rate/rhythm, soft volume, spontaneous TP: mostly linear TC: feeling better, hoping to go home soon, future oriented. Mood: good Affect: euthymic SI: denies HI: none Insight/judgment: poor x 2. Memory/cog: alert, orientation to situation is poor. difficulty retaining information, forgetful. Diagnostics Vital Signs (24Hr): Vital Signs - 24 hr 06/06/25 20:46 06/06/25 21:00 06/07/25 07:55 Temperature 97.3 F 98.4 F Pulse Rate 69 69 70 Respiratory Rate 16 18 Blood Pressure 144/64 H 144/64 H 115/62 Pulse Oximetry 96 93 Oxygen Delivery Method Room Air Room Air BMI result Body Mass Index 31.2 Labs 05/30/25 14:09 06/08/25 07:55 Labs: Laboratory Results - last 48 hr 06/05/25 06/06/25 06/06/25 20:18 06:22 11:06 Sodium Potassium Chloride Carbon Dioxide Anion Gap BUN Creatinine Estim Creat Clear Calc Estimated GFR POC Glucose 251 H 139 H 189 H Random Glucose Calcium Total Creatine Kinase PTH Intact Urine Color Urine Appearance Urine pH Ur Specific [place] Urine Protein Urine Glucose (UA) Urine Ketones Urine Blood Urine Nitrite Ur Leukocyte Esterase 06/06/25 06/06/25 06/07/25 16:14 21:15 06:27 Sodium Potassium Chloride Carbon Dioxide Anion Gap BUN Creatinine Estim Creat Clear Calc Estimated GFR POC Glucose 240 H 225 H 230 H Random Glucose Calcium Total Creatine Kinase PTH Intact Urine Color Urine Appearance Urine pH Ur Specific [place] Urine Protein Urine Glucose (UA) Urine Ketones Urine Blood Urine Nitrite Ur Leukocyte Esterase 06/07/25 06/07/25 06/07/25 07:36 10:14 11:20 Sodium 140 Potassium 5.6 H D 5.1 Chloride 101 Carbon Dioxide 35 H Anion Gap 10 L BUN 33 H Creatinine 1.44 H Estim Creat Clear Calc 36.6 Estimated GFR 36 POC Glucose 202 H Random Glucose 238 H Calcium 9.0 Total Creatine Kinase 87 PTH Intact 31.8 Urine Color Urine Appearance Urine pH Ur Specific [place] Urine Protein Urine Glucose (UA) Urine Ketones Urine Blood Urine Nitrite Ur Leukocyte Esterase 06/07/25 06/07/25 16:04 16:45 Sodium Potassium Chloride Carbon Dioxide Anion Gap BUN Creatinine Estim Creat Clear Calc Estimated GFR POC Glucose 229 H Random Glucose Calcium Total Creatine Kinase PTH Intact Urine Color Yellow Urine Appearance Clear Urine pH 7.0 Ur Specific [place] 1.010 Urine Protein Negative Urine Glucose (UA) 100 H Urine Ketones Negative Urine Blood Negative Urine Nitrite Negative Ur Leukocyte Esterase Negative Imaging Radiology Impressions: ITS Impressions Head CT 05/30/25 12:33 IMPRESSION: No acute intracranial abnormality. No CT evidence of acute territorial infarct. This critical result was relayed to Monique Muse NP via secure text at 12:50 PM, 05/30/2025. Electronically signed by: Shiraz Zuniga MD 05/30/2025 12:54 PM [facility] Medications Medications Current Medications Acetaminophen (Acetaminophen 325 Mg Tablet) 650 mg PO Q6H PRN PRN Reason: Headache/Pain, Scale 1-10 Last Admin: 05/31/25 16:54 Dose: 650 mg Al Hydroxide/Mg Hydroxide (Magnesium Hydrox/Alum Hydrox 30 Ml Oral.Susp) 30 ml PO Q6H PRN PRN Reason: Heartburn/Nausea Albuterol/Ipratropium (Albuterol/Iprat 2.5/0.5mg 3 Ml Ampul.Neb) 3 ml INHALE Q6H PRN PRN Reason: Shortness of Breath/Wheezing Aspirin (Aspirin Enteric Coated 81 Mg Tablet.) 81 mg PO DAILY [facility] Last Admin: 06/07/25 08:01 Dose: 81 mg Clonazepam (Clonazepam 0.5 Mg Tablet) 0.5 mg PO BID [facility] Last Admin: 06/07/25 08:01 Dose: 0.5 mg Clopidogrel Bisulfate (Clopidogrel Bisulfate 75 Mg Tablet) 75 mg PO DAILY [facility] Last Admin: 06/07/25 08:01 Dose: 75 mg Collagenase (Collagenase Clostridium Hist. 30 Gm Tube) 1 appl TOPICAL DAILY [facility] Last Admin: 06/07/25 08:07 Dose: Not Given Fluticasone/Umeclidinium/Vilanterol (Fluticasone/Umeclidinium/Vilanterol 100/62.5 Blst.W.Dev) 1 puff INHALE RDAILY [facility] Last Admin: 06/07/25 08:02 Dose: 1 puff Fluvoxamine Maleate (Fluvoxamine Maleate 50 Mg Tablet) 75 mg PO BEDTIME [facility] Last Admin: 06/06/25 20:47 Dose: 75 mg Furosemide (Furosemide 40 Mg Tablet) 40 mg PO DAILY [facility] On Hold: 06/07/25 09:49 Last Admin: 06/07/25 08:01 Dose: 40 mg Gabapentin (Gabapentin 600 Mg Tablet) 600 mg PO TID [facility] Last Admin: 06/07/25 14:36 Dose: 600 mg Glucose (Glucose Gel 15 Gm Gel..Gram.) 15 gm PO Q15M PRN; Protocol PRN Reason: per Hypoglycemia Standing Ord. Hydroxyzine HCl (Hydroxyzine Hcl 25 Mg Tablet) 25 mg PO Q6H PRN PRN Reason: mild anxiety Last Admin: 06/04/25 18:49 Dose: 25 mg Sodium Chloride (Ns) 1,000 mls @ 75 mls/hr IVCONT .[id number] [facility] Last Admin: 06/07/25 10:47 Dose: 75 mls/hr Insulin Glargine (Insulin Glargine,Hum.Rec.Anlog 100 Unit/Ml 10 Ml Vial) 34 unit SUBCUT DAILY [facility] Last Admin: 06/07/25 08:00 Dose: 34 unit Insulin Human Lispro (Insulin Lispro 100 Unit/Ml 3 Ml Vial) 0 unit SUBCUT QIDACHS [facility]; Protocol Last Admin: 06/07/25 16:32 Dose: 4 unit Isosorbide Mononitrate (Isosorbide Mononitrate 60 Mg Tab.Er.24h) 60 mg PO DAILY [facility] Last Admin: 06/07/25 08:01 Dose: 60 mg Levothyroxine Sodium (Levothyroxine Sodium 150 Mcg Tablet) 150 mcg PO DAILY@0600 [facility] Last Admin: 06/07/25 06:05 Dose: 150 mcg Losartan Potassium (Losartan Potassium 50 Mg Tablet) 100 mg PO DAILY [facility] On Hold: 06/07/25 09:49 Last Admin: 06/07/25 08:01 Dose: 100 mg Magnesium Hydroxide (Milk Of Magnesia 30 Ml Oral.Susp) 30 ml PO DAILY PRN PRN Reason: Constipation Magnesium Oxide (Magnesium Oxide 400 Mg Tablet) 400 mg PO DAILY [facility] Last Admin: 06/07/25 08:01 Dose: 400 mg Metoprolol Succinate (Metoprolol Succinate Er 50 Mg Tab.Er.24h) 50 mg PO BEDTIME [facility] Last Admin: 06/06/25 20:46 Dose: 50 mg Mupirocin (Mupirocin 2 % Oint 22 Gm Tube) 1 appl TOPICAL BID PRN PRN Reason: WOUND CARE Nitroglycerin (Nitroglycerin 0.4 Mg Tab.Subl) 0.4 mg SUBLINGUAL Q5M PRN PRN Reason: Chest Pain Oxycodone HCl (Oxycodone Hcl Immed Release 5 Mg Tablet) 5 mg PO Q6H PRN PRN Reason: Pain, Moderate(Pain Scale 4-6) Last Admin: 06/06/25 20:53 Dose: 5 mg Polyethylene Glycol (Polyethylene Glycol 3350 17 Gm Powd.Pack) 17 gm PO DAILY PRN PRN Reason: Constipation Senna (Sennosides 8.6 Mg Tablet) 8.6 mg PO DAILY PRN PRN Reason: Constipation Trazodone HCl (Trazodone Hcl 50 Mg Tablet) 50 mg PO BEDTIME MRX1 PRN PRN Reason: Insomnia Last Admin: 06/04/25 20:38 Dose: 50 mg Allergies Allergies Allergy/AdvReac Type Severity Reaction Status Date / Time divalproex sodium (Depakote) Allergy Unknown rash/hives Verified 05/27/25 12:57 morphine Allergy Unknown rash Verified 05/27/25 12:57 vancomycin Allergy Unknown resp sx Verified 05/27/25 12:57 Assessment & Plan Assessment & Plan (1) MDD (major depressive disorder), recurrent episode, moderate: Status: Acute Code(s): F33.1 - Major depressive disorder, recurrent, moderate (2) ARRON (acute kidney injury): Status: Acute Code(s): N17.9 - Acute kidney failure, unspecified (3) Cognitive impairment: Status: Acute Code(s): R41.89 - Other symptoms and signs involving cognitive functions and awareness Plan Mrs. Camacho is a 70 year-old woman with hx of MDD, who self presented to [facility] ED reporting increase depression mood, SI with plan to OD on meds. On the unit, pt reports feeling tired and depressed but denied SI/HI. She seemed more withdrawn and noted right side weakness. Her BP was low. Labs showed elevated Cr from 0.8 to 1.54. Hospitalist consulted. We discussed risks, benefits and alternative treatment options. Pending collateral information from OP prescriber/ family member. PLAN 05/31 continue current medications. pt denies depressed mood, also SI. in bed. can't move much. 06/01 continue tx. 06/02 continue tx. paliperidone was discontinued. pending collateral information from OP provider to get better idea of med trials. 06/03 no si/hi. ambulating with walker, off oxygen. 95 on RA. 06/04 continue tx. no si/hi. stable. pending assessment from respiratory therapy to determine oxigen need. pending MOCA/ACL. 06/05 continue tx. pending respiratory therapy assessment. and moca. using one or two oxycodone 5mg a day. it may be good to schedule BID and add one prn. but pt tolerating coming off oxy ER, in fact tox was negative and when restarted was very lethargic. 06/06 Continue tx per primary provider/team 06/07 ARRON, hyperkalemia, received fluids. hotn- lasix and losartan held. plan to start instead if HTN amlodipine to avoid recurrent ARRON. monitor daily weights, fluids retention as pt may need to go back to lasix, per hospitalist. Psychiatrically, pt is stable, no SI/HI. No acute psychosis. cognitive impairments noted. forgetful. Reason for continued inpatient stay Substantial Risk for: other Time Spent With Patient Time: Total time managing care of this patient today ____ minutes.
[2025-06-07] MEDS: oxyCODONE HCl Immed Release 5 MG TABLET PO (18:04)
[2025-06-07 20:00] VITALS: BP 132/63; PULSE 71; RESP 16; TEMP 36.8; O2SAT 97
[2025-06-07 20:35] LABS: Glucose, Whole Blood 285 mg/dL (60-115)
[2025-06-07 20:39] VITALS: BP 132/63; PULSE 71
[2025-06-07] MEDS: Metoprolol Succinate ER 50 MG TAB.ER.24H PO (20:39)
[2025-06-08 07:01] LABS: Glucose, Whole Blood 126 mg/dL (60-115)
[2025-06-08 08:23] LABS: Anion Gap 11 (12-20); Blood Urea Nitrogen 28 mg/dL (9-16); Calcium 9.0 mg/dL (8.4-10.2); Carbon Dioxide 32 mmol/L (22-29); Chloride 105 mmol/L (96-108); Creatinine Clr Calc Pharmacy 47.2; Estimated Glomerular Filt Rate 48; Potassium 4.7 mmol/L (3.3-5.1); Sodium 143 mmol/L (135-145)
[2025-06-08 08:57] VITALS: BP 111/55; PULSE 60; TEMP 36; O2SAT 100
[2025-06-08] MEDS: oxyCODONE HCl Immed Release 5 MG TABLET PO (08:59)
[2025-06-08] MEDS: Aspirin Enteric Coated 81 MG TABLET.DR PO (08:59)
[2025-06-08] MEDS: Insulin Glargine,Hum.rec.anlog 100 UNIT/ML 10 ML VIAL 34 UNIT SUBCUT (09:00)
[2025-06-08] MEDS: Fluticasone/Umeclidinium/Vilanterol 100/62.5/25 BLST.W.DEV 1 PUFF INHALE (09:01)
--- NOTE | 2025-06-08 10:42 | PM.PSYDC ---
DS: Providers Provider Date of Service: 06/08/25 Date of admission: 05/30/25 09:42 Date of discharge: 06/08/25 Primary care physician: Jennifer Wu NP Consults: 06/07/25 09:48 Consult to Nephrology Routine Consulting Provider: [facility] Reason for consultation: Renal insufficiency Has provider been notified: Yes 06/07/25 09:54 Consult to Nephrology Routine Consulting Provider: [facility] Reason for consultation: Elevated creatinine Has provider been notified: Yes DS: Diagnosis Discharge Diagnosis (1) ARRON (acute kidney injury): Status: Acute DS: Medications Discharge Medications Home Medications: Home Medications ?Medication ?Instructions ?Recorded ?Confirmed aspirin 81 mg tablet,delayed 81 mg PO DAILY 06/22/24 05/27/25 release cholecalciferol (vitamin D3) 125 125 mcg PO MO 06/22/24 05/27/25 mcg (5,000 unit) tablet (Vitamin D3) dulaglutide 1.5 mg/0.5 mL 3 mg subcut SA 06/22/24 05/27/25 [facility] fluticasone fur. 200 mcg-umeclid 1 inh inhalation DAILY 06/22/24 05/27/25 62.5 mcg-vilant 25 mcg inhalat.powder (Trelegy Ellipta) gabapentin 600 mg tablet 600 mg PO TID 06/22/24 05/27/25 insulin degludec 200 unit/mL (3 40 unit subcut DAILY 06/22/24 05/27/25 mL) subcutaneous pen (Tresiba FlexTouch U-200 insulin) isosorbide mononitrate 60 mg 60 mg PO DAILY 06/22/24 05/27/25 tablet,extended release 24 hr clonazepam 0.5 mg tablet 0.5 mg PO BID 05/27/25 05/27/25 clopidogrel 75 mg tablet 75 mg PO DAILY 05/27/25 05/27/25 fluvoxamine 25 mg tablet 75 mg PO BEDTIME 05/27/25 05/27/25 levothyroxine 150 mcg tablet 150 mcg PO DAILY 05/27/25 05/27/25 mupirocin 2 % topical ointment 1 appl topical BID PRN Wound Care 05/27/25 05/27/25 nitroglycerin 0.4 mg sublingual 0.4 mg sublingual Q5M PRN Chest 05/27/25 05/27/25 tablet Pain polyethylene glycol 3350 17 17 g PO DAILY PRN Constipation 05/27/25 05/27/25 gram/dose oral powder (Miralax) sennosides 8.6 mg tablet (senna) 8.6 mg PO DAILY PRN Constipation 05/27/25 05/27/25 Previous Rx's ?Medication ?Instructions ?Recorded collagenase clostridium histo. 250 1 appl topical DAILY #0 grams 06/08/25 unit/gram topical ointment (Santyl) ipratropium 0.5 mg-albuterol 3 mg 3 ml inhalation Q6H PRN Shortness 06/08/25 (2.5 mg base)/3 mL nebulization Of Breath/Wheezing #0 mL soln magnesium oxide 400 mg (241.3 mg 400 mg PO DAILY #0 tabs 06/08/25 magnesium) tablet metoprolol succinate 50 mg 50 mg PO BEDTIME #0 tabs 06/08/25 tablet,extended release 24 hr Mental Status Exam Mental Status Exam Narrative: Appearance: wearing casual clothing, in DR, calm, in NAD Behavior: cooperative and in good spirits overall Psychomotor: no significant retardation noted. Speech: mostly clear, normal rate/rhythm, soft volume, spontaneous TP: mostly linear TC: feeling better, hoping to go home soon, future oriented. Mood: good Affect: euthymic SI: denies HI: none Insight/judgment: poor x 2. Memory/cog: alert, orientation to situation is poor. difficulty retaining information, forgetful. Data Data Completed and Pending Completed studies during hospitalization [Text1]: 06/01/25 06/01/25 06/01/25 11:09 16:12 21:09 Hold Purple Top Sodium Potassium Chloride Carbon Dioxide Anion Gap BUN Creatinine Estim Creat Clear Calc Estimated GFR POC Glucose 234 H 258 H 250 H Random Glucose Calcium Total Creatine Kinase 25-OH Vitamin D Total 25-Hydroxy Vitamin D2 25-Hydroxy Vitamin D3 PTH Intact Urine Color Urine Appearance Urine pH Ur Specific [place] Urine Protein Urine Glucose (UA) Urine Ketones Urine Blood Urine Nitrite Ur Leukocyte Esterase 06/02/25 06/02/25 06/02/25 06:49 07:31 11:02 Hold Purple Top SEE NOTE Sodium 142 Potassium 4.5 Chloride 104 Carbon Dioxide 32 H Anion Gap 11 L BUN 28 H Creatinine 1.00 Estim Creat Clear Calc 52.3 Estimated GFR 55 POC Glucose 143 H 127 H Random Glucose 127 H Calcium 8.6 Total Creatine Kinase 315 H 25-OH Vitamin D Total 25-Hydroxy Vitamin D2 25-Hydroxy Vitamin D3 PTH Intact Urine Color Urine Appearance Urine pH Ur Specific [place] Urine Protein Urine Glucose (UA) Urine Ketones Urine Blood Urine Nitrite Ur Leukocyte Esterase 06/02/25 06/02/25 06/02/25 16:00 16:03 20:39 Hold Purple Top Sodium Potassium Chloride Carbon Dioxide Anion Gap BUN Creatinine Estim Creat Clear Calc Estimated GFR POC Glucose 25 L* 162 H 208 H Random Glucose Calcium Total Creatine Kinase 25-OH Vitamin D Total 25-Hydroxy Vitamin D2 25-Hydroxy Vitamin D3 PTH Intact Urine Color Urine Appearance Urine pH Ur Specific [place] Urine Protein Urine Glucose (UA) Urine Ketones Urine Blood Urine Nitrite Ur Leukocyte Esterase 06/03/25 06/03/25 06/03/25 06:43 07:10 11:02 Hold Purple Top Sodium 140 Potassium 4.5 Chloride 99 Carbon Dioxide 34 H Anion Gap 12 BUN 28 H Creatinine 1.10 Estim Creat Clear Calc 48.0 Estimated GFR 49 POC Glucose 147 H 175 H Random Glucose 134 H Calcium 9.3 D Total Creatine Kinase 283 H 25-OH Vitamin D Total 25-Hydroxy Vitamin D2 25-Hydroxy Vitamin D3 PTH Intact Urine Color Urine Appearance Urine pH Ur Specific [place] Urine Protein Urine Glucose (UA) Urine Ketones Urine Blood Urine Nitrite Ur Leukocyte Esterase 06/03/25 06/03/25 06/04/25 16:18 20:43 06:43 Hold Purple Top Sodium Potassium Chloride Carbon Dioxide Anion Gap BUN Creatinine Estim Creat Clear Calc Estimated GFR POC Glucose 152 H 237 H 120 H Random Glucose Calcium Total Creatine Kinase 25-OH Vitamin D Total 25-Hydroxy Vitamin D2 25-Hydroxy Vitamin D3 PTH Intact Urine Color Urine Appearance Urine pH Ur Specific [place] Urine Protein Urine Glucose (UA) Urine Ketones Urine Blood Urine Nitrite Ur Leukocyte Esterase 06/04/25 06/04/25 06/04/25 11:39 16:17 20:03 Hold Purple Top Sodium Potassium Chloride Carbon Dioxide Anion Gap BUN Creatinine Estim Creat Clear Calc Estimated GFR POC Glucose 161 H 201 H 207 H Random Glucose Calcium Total Creatine Kinase 25-OH Vitamin D Total 25-Hydroxy Vitamin D2 25-Hydroxy Vitamin D3 PTH Intact Urine Color Urine Appearance Urine pH Ur Specific [place] Urine Protein Urine Glucose (UA) Urine Ketones Urine Blood Urine Nitrite Ur Leukocyte Esterase 06/05/25 06/05/25 06/05/25 06:47 11:04 16:18 Hold Purple Top Sodium Potassium Chloride Carbon Dioxide Anion Gap BUN Creatinine Estim Creat Clear Calc Estimated GFR POC Glucose 171 H 232 H 224 H Random Glucose Calcium Total Creatine Kinase 25-OH Vitamin D Total 25-Hydroxy Vitamin D2 25-Hydroxy Vitamin D3 PTH Intact Urine Color Urine Appearance Urine pH Ur Specific [place] Urine Protein Urine Glucose (UA) Urine Ketones Urine Blood Urine Nitrite Ur Leukocyte Esterase 06/05/25 06/06/25 06/06/25 20:18 06:22 11:06 Hold Purple Top Sodium Potassium Chloride Carbon Dioxide Anion Gap BUN Creatinine Estim Creat Clear Calc Estimated GFR POC Glucose 251 H 139 H 189 H Random Glucose Calcium Total Creatine Kinase 25-OH Vitamin D Total 25-Hydroxy Vitamin D2 25-Hydroxy Vitamin D3 PTH Intact Urine Color Urine Appearance Urine pH Ur Specific [place] Urine Protein Urine Glucose (UA) Urine Ketones Urine Blood Urine Nitrite Ur Leukocyte Esterase 06/06/25 06/06/25 06/07/25 16:14 21:15 06:27 Hold Purple Top Sodium Potassium Chloride Carbon Dioxide Anion Gap BUN Creatinine Estim Creat Clear Calc Estimated GFR POC Glucose 240 H 225 H 230 H Random Glucose Calcium Total Creatine Kinase 25-OH Vitamin D Total 25-Hydroxy Vitamin D2 25-Hydroxy Vitamin D3 PTH Intact Urine Color Urine Appearance Urine pH Ur Specific [place] Urine Protein Urine Glucose (UA) Urine Ketones Urine Blood Urine Nitrite Ur Leukocyte Esterase 06/07/25 06/07/25 06/07/25 07:36 10:14 11:20 Hold Purple Top Sodium 140 Potassium 5.6 H D 5.1 Chloride 101 Carbon Dioxide 35 H Anion Gap 10 L BUN 33 H Creatinine 1.44 H Estim Creat Clear Calc 36.6 Estimated GFR 36 POC Glucose 202 H Random Glucose 238 H Calcium 9.0 Total Creatine Kinase 87 25-OH Vitamin D Total Pending 25-Hydroxy Vitamin D2 Pending 25-Hydroxy Vitamin D3 Pending PTH Intact 31.8 Urine Color Urine Appearance Urine pH Ur Specific [place] Urine Protein Urine Glucose (UA) Urine Ketones Urine Blood Urine Nitrite Ur Leukocyte Esterase 06/07/25 06/07/25 06/07/25 16:04 16:45 20:28 Hold Purple Top Sodium Potassium Chloride Carbon Dioxide Anion Gap BUN Creatinine Estim Creat Clear Calc Estimated GFR POC Glucose 229 H 285 H Random Glucose Calcium Total Creatine Kinase 25-OH Vitamin D Total 25-Hydroxy Vitamin D2 25-Hydroxy Vitamin D3 PTH Intact Urine Color Yellow Urine Appearance Clear Urine pH 7.0 Ur Specific [place] 1.010 Urine Protein Negative Urine Glucose (UA) 100 H Urine Ketones Negative Urine Blood Negative Urine Nitrite Negative Ur Leukocyte Esterase Negative 06/08/25 06/08/25 06:52 07:55 Hold Purple Top Sodium 143 Potassium 4.7 Chloride 105 Carbon Dioxide 32 H Anion Gap 11 L BUN 28 H Creatinine 1.12 Estim Creat Clear Calc 47.2 Estimated GFR 48 POC Glucose 126 H Random Glucose 126 H Calcium 9.0 Total Creatine Kinase 25-OH Vitamin D Total 25-Hydroxy Vitamin D2 25-Hydroxy Vitamin D3 PTH Intact Urine Color Urine Appearance Urine pH Ur Specific [place] Urine Protein Urine Glucose (UA) Urine Ketones Urine Blood Urine Nitrite Ur Leukocyte Esterase Imaging Diagnostic Imaging Impressions Head CT 05/30/25 12:33 IMPRESSION: No acute intracranial abnormality. No CT evidence of acute territorial infarct. This critical result was relayed to Monique Muse NP via secure text at 12:50 PM, 05/30/2025. Electronically signed by: Shiraz Zuniga MD 05/30/2025 12:54 PM [facility] DS: Summary Hospital Course Hospital Course: Mrs. Camacho is a 70 year-old woman with hx of MDD who came via EMS to [facility] reporting increase depressed mood, suicidal ideation in context of past traumatic memories and issues at current placement. She endorsed feeling lonely and although reported sister coming to visit feels at times as sister spends more time with other residents. Pertinent labs completed in the ED included CBC no leukocytosis or leukopenia, no anemia, chronic low plateless 126. CMP without electrolyte abnormalities, BUN cr. 0.84. Utox positive only for THC. On the unit, pt presented as alert, but with some delayed response. She reported feeling tired. She also endorse feeling depressed. She denied SI/HI. No signs of psychosis or delusions. She reported weakness on right hand and not being able to keep hand up. She reported her concern is back pain and fact that she used to get according to patient higher doses of opioid. However, in the ED her utox was negative for oxycodone. 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 She does not know who prescribes her psychiatric medications nor who is prescribing them. Past Psychiatric History: INpt:record reports prior admission to [facility] OP: none denies hx of suicide attempts. Past med trials: luvox, risperidone, olanzapine Medical Evaluation Reviewed: Yes HOSPITAL COURSE ON the unit, pt was admitted on a CV. She appeared weak, somnolent. She had medical work up which showed ARRON on chronic kidney disease, elevated CK. She received IVF. She presented than as more alert and able to ambulate. In the ED- pt's utox was negative for oxycodone. Pt presents as very forgetful. She was confused as to why she had been admitted to the unit, forgetting that she had asked to be brought to ED for depression and SI. She thought that had happened a long time ago, I am fine now. She was able to tell the month and the year and place, but had significant difficulty recounting events leading to this admission. She was also noted to have difficulty retaining medical and other pertinent clinical information. Oxycontin ER was gradually taper off, she was continued on oxycodone immediate release. She was followed by hospitalist as she had two episodes of ARRON, including initial on admission. In terms of psychotropic medications, pt does not present nor it has been documented in her psychiatric records any hx of psychosis or delusional thinking. Pt has hx of trauma, depression and now cognitive impairments. She had been prescribed paliperidone and olanzapine both of which were discontinued. She was only continue on fluvox at 75mg po qhs but recommendation is to monitor for anticholigergic side effects. Prozac was discontinued to avoid polypharmacy. She was continued on clonazepam 0.5mg po BID. Her affect was bright, non labile. She denied SI/HI. She did not show any signs of psychosis or delusions. She often seem forgetful as to why she was in the hospital. There were no incidences of disruptive behaviors nor need for restrains. MEDICAL: Acute kidney injury: Baseline creatinine around 0.8-1 mg/dL, currently increased to 1.44 in the setting of metabolic alkalosis and hyperkalemia possibly suggesting poor distal tubular flow due to volume depletion. Normal saline at 75 cc an hour for 1 L. Agree with holding off on lasix and losartan. Since the patient is high risk of repeated ARRON due to volume issues, can discontinue losartan and change to amlodipine 10mg daily. Check urinalysis, urine sodium, urine osmoles, urine eosinophils Appears euvolemic on exam Avoid nephrotoxic agents, contrast, NSAIDs, OSMANY inhibitors Status at Discharge Cognitive/behavioral status at discharge: Pt alert, bright affect, non labile. No SI/HI. No signs of psychosis or delusions. Sleeping and eating well. No signs of aggression towards self or others. Functional status at discharge: uses cane/walker Overall status at discharge: patient is back to baseline Time Spent with Patient Time attestation: Total time managing care of this patient today ____ minutes. Discharge Plan Discharge Anticipated Discharge Date/Time: 06/08/25 10:22 Patient Disposition: Home, Self-Care Discharge Diagnosis: MDD, recurrent, moderate. Cognitive impairment. [facility]Other[facility] - [facility]08/25 Referral Note: Resume all [facility] services at time of discharge. Discharge Medications: New ipratropium-albuterol 0.5 mg-3 mg(2.5 mg base)/3 mL Solution For Nebulization 3 ml inhalation Q6H PRN (Reason: Shortness Of Breath/Wheezing) Qty: 0 0RF metoprolol succinate 50 mg Tablet Extended Release 24 Hr 50 mg PO BEDTIME Qty: 0 0RF magnesium oxide 400 mg (241.3 mg magnesium) Tablet 400 mg PO DAILY Qty: 0 0RF Santyl 250 unit/gram Ointment 1 appl topical DAILY Qty: 0 0RF Continued aspirin 81 mg Tablet,Delayed Release (Dr/Ec) 81 mg PO DAILY isosorbide mononitrate 60 mg Tablet Extended Release 24 Hr 60 mg PO DAILY cholecalciferol (vitamin D3) [Vitamin D3] 125 mcg (5,000 unit) Tablet 125 mcg PO MO insulin degludec [Tresiba FlexTouch U-200] 200 unit/mL (3 mL) Insulin Pen 40 unit SUBCUT DAILY Trulicity 1.5 mg/0.5 mL Pen Injector 3 mg SUBCUT SA Trelegy Ellipta 200-62.5-25 mcg Blister With Device 1 inh INHALATION DAILY gabapentin 600 mg Tablet 600 mg PO TID sennosides [senna] 8.6 mg Tablet 8.6 mg PO DAILY PRN (Reason: Constipation) clonazepam 0.5 mg Tablet 0.5 mg PO BID clopidogrel 75 mg Tablet 75 mg PO DAILY fluvoxamine 25 mg Tablet 75 mg PO BEDTIME levothyroxine 150 mcg Tablet 150 mcg PO DAILY nitroglycerin 0.4 mg Tablet, Sublingual 0.4 mg SUBLINGUAL Q5M PRN (Reason: Chest Pain) Rx Instructions: do not exceed 3 doses per episode mupirocin 2 % Ointment 1 appl TOPICAL BID PRN (Reason: Wound Care) polyethylene glycol 3350 [Miralax] 17 gram/dose Powder 17 g PO DAILY PRN (Reason: Constipation) Discontinued metoprolol succinate 50 mg Tablet Extended Release 24 Hr 50 mg PO BEDTIME insulin aspart U-100 [Novolog FlexPen U-100 Insulin] 100 unit/mL (3 mL) Insulin Pen 1 sliding scale dose SUBCUT TIDAC Rx Instructions: 150-199=3 units, 200-249=5 units, 250-299=7 units, 300-349=9 units, 350-399=11 units, 400-449=13 units furosemide 40 mg Tablet 40 mg PO DAILY olanzapine 2.5 mg Tablet 2.5 mg PO BEDTIME Santyl 250 unit/gram Ointment 1 appl TOPICAL DAILY losartan 100 mg Tablet 100 mg PO DAILY rosuvastatin 20 mg Tablet 20 mg PO DAILY paliperidone [Invega] 6 mg Tablet Extended Release 24hr 6 mg PO DAILY Combivent Respimat 20-100 mcg/actuation Mist 1 puff INHALATION Q6H PRN (Reason: Shortness Of Breath Or Wheezing) oxycodone [OxyContin] 10 mg Tablet,Oral Only,Ext.Rel.12 Hr 10 mg PO BID oxycodone [OxyContin] 15 mg Tablet,Oral Only,Ext.Rel.12 Hr 15 mg PO BID magnesium oxide 400 mg magnesium Tablet 400 mg PO DAILY Discharge Orders: Discharge Order (Routine); Ordered 06/08/25 Ordered By: Monique Muse Diet: Diabetic diet Activity on Discharge: Use cane or walker Stand Alone Forms: Patient Portal Discharge page, Community Support Print Language: Monegasque Care Plan Goals: 1. Maintain mood 2. No SI/HI Health Concerns: Follow up with PCP for priscila KAMARA held, may need daily weights. ARRON, off losartan, may need if again HTN amlodipine per hospitalist. Plan of Treatment: 1. Medications to be given by [facility]. Pt with cognitive 2. Go to ED or call 911 in event of emergency Assessment: Pt with bright, non labile affect. No SI/HI. No signs of psychosis or delusions. Pt with difficulty retaining information. Pt sleeping and eating. No concerns in terms of aggression towards self or others. Discharge Date/Time: 06/08/25 11:05
--- NOTE | 2025-06-08 10:52 | PM.PNNEP ---
Subjective Subjective Date of Service: 06/08/25 Interval history: Pt seen by hospitalist. Physical Exam Vital Signs: Vital Signs: Last Vital Signs Temp 96.8 F 06/08/25 08:57 Pulse 60 06/08/25 08:57 Resp 16 06/07/25 20:00 BP 111/55 L 06/08/25 08:57 Pulse Ox 100 06/08/25 08:57 O2 Del Method Nasal Cannula 06/08/25 08:57 O2 Flow Rate 2 06/08/25 08:57 Oxygen Flow Rate 3 05/27/25 12:55 BMI result Body Mass Index 31.2 General: not in any acute distress, ill appearing Nutritional Appearance: well nourished and overweight Eyes: appearance normal, both eyes and all related structures Neck: No lymphadenopathy, no thyromegaly Resp: bilateral air entry equal, no added sounds present Cardio: Regular rate, regular rhythm; normal S1-S2 GI: soft, nontender, no guarding, no hepatosplenomegaly : bladder normal to inspection, bladder normal to palpation, no renal angle tenderness Skin: no rashes or lesions noted and elasticity normal Neuro: alert, oriented x 3, moves all extremities Objective Data Labs 05/30/25 14:09 06/08/25 07:55 Labs: Laboratory Results - last 24 hr 06/07/25 06/07/25 06/07/25 11:20 16:04 16:45 Sodium Potassium Chloride Carbon Dioxide Anion Gap BUN Creatinine Estim Creat Clear Calc Estimated GFR POC Glucose 202 H 229 H Random Glucose Calcium Urine Color Yellow Urine Appearance Clear Urine pH 7.0 Ur Specific [place] 1.010 Urine Protein Negative Urine Glucose (UA) 100 H Urine Ketones Negative Urine Blood Negative Urine Nitrite Negative Ur Leukocyte Esterase Negative 06/07/25 06/08/25 06/08/25 20:28 06:52 07:55 Sodium 143 Potassium 4.7 Chloride 105 Carbon Dioxide 32 H Anion Gap 11 L BUN 28 H Creatinine 1.12 Estim Creat Clear Calc 47.2 Estimated GFR 48 POC Glucose 285 H 126 H Random Glucose 126 H Calcium 9.0 Urine Color Urine Appearance Urine pH Ur Specific [place] Urine Protein Urine Glucose (UA) Urine Ketones Urine Blood Urine Nitrite Ur Leukocyte Esterase Procedures Date of Service Date of Service: 06/08/25 Assessment & Plan Assessment and plan (1) ARRON (acute kidney injury): Status: Acute (2) Hypertension: Status: Acute Plan Acute kidney injury: Baseline creatinine around 0.8-1 mg/dL, increased to 1.44 yesterday due to volume depletion improved down to 1.12 with volume replacement. Continue holding off on lasix and losartan. Since the patient is high risk of repeated ARRON due to volume issues, can discontinue losartan and change to amlodipine 10mg daily. Urinalysis normal Avoid nephrotoxic agents, contrast, NSAIDs, OSMANY inhibitors Closely monitor I's and Os Hypertension: Please switch losartan to amlodipine as patient is high-risk for volume depletion leading to ARRON Continue metoprolol 50 mg nightly Can do Lasix as needed Nephrology we will sign off, please reconsult if and as needed Time Spent With Patient Time: Total time managing care of this patient today ____ minutes. Progress Note: Quality Stroke Does the patient have a stroke diagnosis?: No
[2025-06-11 14:59] LABS: Vitamin D 25-OH, D2 10 ng/mL; Vitamin D 25-OH, D3 18 ng/mL; Vitamin D 25-OH, Total 28 ng/mL (30-100)
== END 2025-06-08 11:05 | disposition home or self-care (01) | DRG 885 ==
LOC: HO.ED 05-30 02:59 → HO.PGERI 05-30 09:52
PROVIDERS: Hospitalist; Internal Medicine Critical Care Medicine; Nurse Practitioner Family; Admitting Provider Social Worker; Emergency Provider Emergency Medicine; PCP Nurse Practitioner Family; Visit Provider Social Worker
DX: F33.1 Major depressive disorder, recurrent, moderate (principal); N17.9 Acute kidney failure, unspecified; M62.82 Rhabdomyolysis; I50.42 Chronic combined systolic (congestive) and diastolic (congestive) heart failure; F17.210 Nicotine dependence, cigarettes, uncomplicated; Z71.6 Tobacco abuse counseling; R41.89 Other symptoms and signs involving cognitive functions and awareness; E03.9 Hypothyroidism, unspecified; M54.9 Dorsalgia, unspecified; G89.29 Other chronic pain; J44.9 Chronic obstructive pulmonary disease, unspecified; I11.0 Hypertensive heart disease with heart failure; E78.5 Hyperlipidemia, unspecified; E11.40 Type 2 diabetes mellitus with diabetic neuropathy, unspecified; Z99.81 Dependence on supplemental oxygen; Z79.4 Long term (current) use of insulin; Z79.02 Long term (current) use of antithrombotics/antiplatelets; Z79.82 Long term (current) use of aspirin; Z79.85 Long-term (current) use of injectable non-insulin antidiabetic drugs; Z79.890 Hormone replacement therapy; Z79.891 Long term (current) use of opiate analgesic; Z79.899 Other long term (current) drug therapy
CPT/HCPCS: 36415; 70450; 80048; 80053; 80061; 80076; 80307; 81001; 81003; 82306; 82550; 82607; 82947; 83036; 83735; 83970; 84132; 84443; 85025; 85652; 86140; 92507; 92610; 93005; 99285; S9485

== ENCOUNTER → 2025-05-27 13:12 | Outpatient (BNV) | payer OTHER, SELFPAY | PROVIDERS: Emergency Provider Emergency Medicine; PCP Nurse Practitioner Family; Visit Provider Internal Medicine | DX: Z13.6 Encounter for screening for cardiovascular disorders (principal) | CPT/HCPCS: 93010 ==

== ENCOUNTER 2025-05-30 09:42 | Outpatient (BNV) | payer OTHER, SELFPAY | END 2025-05-30 12:21 | PROVIDERS: Admitting Provider Social Worker; Emergency Provider Emergency Medicine; PCP Nurse Practitioner Family; Visit Provider Radiology Diagnostic Radiology | DX: I63.9 Cerebral infarction, unspecified (principal) | CPT/HCPCS: 70450 ==

== ENCOUNTER → 2025-05-30 09:42 | Outpatient (BNV) | payer OTHER, SELFPAY | PROVIDERS: Admitting Provider Social Worker; Emergency Provider Emergency Medicine; PCP Nurse Practitioner Family; Visit Provider Social Worker | DX: F33.1 Major depressive disorder, recurrent, moderate (principal); R41.89 Other symptoms and signs involving cognitive functions and awareness | CPT/HCPCS: 99232 ==

== ENCOUNTER → 2025-05-30 09:42 | Outpatient (BNV) | payer OTHER, SELFPAY | PROVIDERS: Admitting Provider Social Worker; Emergency Provider Emergency Medicine; PCP Nurse Practitioner Family; Visit Provider Internal Medicine Critical Care Medicine | DX: N17.9 Acute kidney failure, unspecified (principal); I10 Essential (primary) hypertension | CPT/HCPCS: 99223; 99233 ==

== ENCOUNTER → 2025-05-30 09:42 | Outpatient (BNV) | payer OTHER, SELFPAY | PROVIDERS: Admitting Provider Social Worker; Emergency Provider Emergency Medicine; PCP Nurse Practitioner Family; Visit Provider Nurse Practitioner Family | DX: N17.9 Acute kidney failure, unspecified (principal) | CPT/HCPCS: 99221; 99232 ==